=== PATIENT | male | born 1955 | race Two or more races ===

== ENCOUNTER 2024-07-31 23:29 | Inpatient (IN) | payer OTHER, MEDICARE, MEDICAID ==
[~2024-07-31] VITALS: Ht 188 cm; Wt 109.5 kg
--- NOTE | 2024-08-01 00:32 | ED.PDOC ---
SOB-HPI HPI Comments 68 year old male brought in by EMS presents to the ED with a chief complaint of shortness of breath onset 1 day. Per EMS, patient has a PMHx of HTN, COPD, rhabdomyolysis. Patient was experiencing shortness of breath, O2 sat upon EMS arrival was 86% RA, placed 15 NRB O2 sat improved to 96%. Patient was also experiencing cough, hemoptysis. Upon assessment patient was on 3L, O2 sat was 92%. Denies chest pain, headache, dizziness, abdominal pain, nausea, vomiting, diarrhea. No other symptoms or modifying factors present at this time. Chief Complaint: Shortness of Breath Time Seen by MD: 00:25 Reviewed notes: Medications, Allergies Information Source: Patient, Emergency Med Personnel Mode of Arrival: EMS Severity: Moderate Timing: Hours Duration: Since onset Context: At Rest PE Risk Factors: None History of: COPD Prehospital treatment: Breathing Tx, Oxygen Modifying Factors: Nothing Associated Signs and Symptoms: Cough, Hemoptysis Radiation: No Radiation If cough with SOB: Productive, Bloody Past Medical History PAST MEDICAL HISTORY: COPD, HTN Past Medical History (Other): rhabdomyolysis Surgical History: Unknown Family History Family History: Unknown Social History Smoker: Non-Smoker Alcohol: Denies ETOH Use Drugs: Denies Drug Use Lives In: Home Constitutional: denies: chills, diaphoresis, fatigue, fever, malaise, sweats, weakness, others EENTM: denies: blurred vision, double vision, ear bleeding, ear discharge, ear drainage, ear pain, ear ringing, eye pain, eye redness, hearing loss, mouth pain, mouth swelling, nasal discharge, nose bleeding, nose congestion, nose pain, photophobia, tearing, throat pain, throat swelling, voice changes, others Respiratory: reports: cough, hemoptysis, shortness of breath; denies: orthopnea, SOB at rest, SOB with excertion, stridor, wheezing, others Cardiovascular: denies: chest pain, dizzy spells, diaphoresis, Dyspnea on exertion, edema, irregular heart beat, left arm pain, lightheadedness, palpitations, PND, syncope, others Gastrointestinal: denies: abdomen distended, abdominal pain, blood streaked bowels, constipated, diarrhea, dysphagia, difficulty swallowing, hematemesis, melena, nausea, poor appetite, poor fluid intake, rectal bleeding, rectal pain, vomiting, others Genitourinary: denies: burning, dysuria, flank pain, frequency, hematuria, incontinence, penile discharge, penile sore, pain, testicle pain, testicle swelling, urgency, others Neurological: denies: dizziness, fainting, headache, left sided numbness, left sided weakness, numbness, paresthesia, pre-existing deficit, right sided numbness, right sided weakness, seizure, speech problems, tingling, tremors, weakness, others Musculoskeletal: denies: back pain, gout, joint pain, joint swelling, muscle pain, muscle stiffness, neck pain, others Integumetry: denies: bruises, change in color, change in hair/nails, dryness, laceration, lesions, lumps, rash, wounds, others Allergic/Immunocompromised: denies: Difficulty Healing, Frequent Infections, Hives, Itching, others Hematologic/Lymphatic: denies: anemia, blood clots, easy bleeding, easy bruising, swollen glands, others Endocrine: denies: excessive hunger, excessive sweating, excessive thirst, excessive urination, flushing, intolerance to cold, intolerance to heat, unexplained weight gain, unexplained weight loss, others Psychiatric: denies: anxiety, bipolar disorder, depression, hopeless, panic disorder, schizophrenia, sleepless, suicidal, others All Other Systems: Reviewed and Negative Physical Exam General Appearance: Mild Distress HEENT: Other (Pupils and face symmetric. Moist mucous membranes.) Neck: Full Range of Motion, Normal Inspection Respiratory: Accessory Muscle Use, Decreased Breath Sounds, Respiratory Distress, Wheezing Cardiovascular: No Edema, No JVD, Tachycardia Breast Exam: Deferred Gastrointestinal: Non Tender, Soft Genitalia: Deferred Pelvic: Deferred Rectal: Deferred Extremities: Normal inspection, Normal range of motion, Non-tender, No pedal edema Neurologic: Alert (Oriented x2), Normal Affect, Other (Anxious. Moves all extremities. No gross focal deficit.) Cerebellar Function: NOT DONE Reflexes: NOT DONE Skin: Dry, Pallor, Warm Lymphatic: NOT DONE EKG EKG : Comments Sinus tach, rate 135, normal intervals, left axis deviation, possible old anteroseptal infarct, lateral ST depression with other nonspecific T changes. Was a procedure done? Was a procedure done?: No Differential Dx Differential Diagnosis: Asthma, Bronchitis, CHF, COPD, Hyperventilation, Panic Attack, Pneumonia, Pulmonary Embolism, Respiratory Distress, URI X-Ray, Labs, Meds, VS Vital Signs Date Time Temp Pulse Resp B/P (MAP) Pulse Ox O2 Delivery O2 Flow Rate FiO2 08/01/24 02:25 98.9 128 37 112/78 93 3.0 32 98.9 08/01/24 02:20 93 Nasal Cannula* 3 32 08/01/24 02:20 93 Nasal Cannula 3.0 08/01/24 01:00 128 34 112/78 (89) 90 08/01/24 00:37 37 93 Nasal Cannula* 3 32 08/01/24 00:16 98.9 132 43 121/88 (99) 91 98.9 08/01/24 00:00 129 07/31/24 23:56 Nasal Cannula* 3 32 07/31/24 23:37 98.3 138 22 150/88 (108) 96 07/31/24 23:35 135 Lab Test 08/01/24 02:11 08/01/24 01:50 08/01/24 00:44 08/01/24 00:41 Range/Units Troponin I High Sensitivity Pending 15 </=54 ng/L Urine Color Light-yellow Yellow Urine Clarity Turbid H Clear Urine pH 5.5 5.0-9.0 Urine Specific [place] 1.023 1.001-1.035 Urine Protein 1+ H Negative Urine Ketones Trace Negative Urine Blood 3+ H Negative /uL Urine Nitrite Negative Negative Urine Bilirubin Negative Negative Urine Urobilinogen Normal Negative mg/dL Urine Leukocyte Esterase Negative Negative /uL Urine RBC 361 0 - 3 /hpf Urine Microscopic WBC 8 H 0-3 /HPF Urine Squamous Epithelial Cells Few <5 /hpf Urine Bacteria Few H None Seen /hpf Urine Mucus Few None Seen Urine Glucose Normal Normal mg/dL Influenza Type A Antigen Negative Negative Influenza Type B Antigen Negative Negative SARS-CoV-2 Antigen (Rapid) Negative NEGATIVE White Blood Count 15.3 H 4.4-10.8 10^3/uL Red Blood Count 3.83 L 4.5-5.90 10^6/uL Hemoglobin 10.8 L 13.5-17.5 g/dL Hematocrit 32.5 L 41.0-53.0 % Mean Corpuscular Volume 84.8 80.0-100.0 fL Mean Corpuscular Hemoglobin 28.1 28.0-32.0 pg Mean Corpuscular Hemoglobin Concent 33.1 32.0-36.0 g/dL Red Cell Distribution Width 14.9 H 11.8-14.3 % Platelet Count 332 140-450 10^3/uL Mean Platelet Volume 9.1 6.9-10.8 fL Neutrophils (%) (Auto) 86.7 H 37.0-80.0 % Lymphocytes (%) (Auto) 7.3 L 10.0-50.0 % Monocytes (%) (Auto) 4.2 0.0-12.0 % Eosinophils (%) (Auto) 1.4 0.0-7.0 % Basophils (%) (Auto) 0.4 0.0-2.0 % Neutrophils # (Auto) 13.2 H 1.6-8.6 10 ^3/uL Lymphocytes # (Auto) 1.1 0.4-5.4 10 ^3/uL Monocytes # (Auto) 0.6 0-1.3 10 ^3/uL Eosinophils # (Auto) 0.2 0-0.8 10 ^3/uL Basophils # (Auto) 0.1 0-0.2 10 ^3/uL Nucleated Red Blood Cells 0.0 % D-Dimer, Quantitative 0.85 H 0.0-0.49 mg/L FEU Sodium Level 140 136-145 mmol/L Potassium Level 4.3 3.5-5.1 mmol/L Chloride Level 108 H 98-107 mmol/L Carbon Dioxide Level 21 20-31 mmol/L Anion Gap 11 5-15 Blood Urea Nitrogen 39 H 9-23 mg/dL Creatinine 1.00 0.700-1.30 mg/dL Glomerular Filtration Rate Calc 82 >90 mL/min BUN/Creatinine Ratio 39.0 H 10.0-20.0 Serum Glucose 143 H 74-106 mg/dL Lactic Acid Level 2.2 *H 0.4-2.0 mmol/L Calcium Level 9.7 8.7-10.4 mg/dL B-Type Natriuretic Peptide 27.44 0-100 pg/mL Current Medications Medications (Trade) Dose Ordered Sig/Camelia Route Start Time Stop Time Status Last Admin Albuterol (Ventolin Medneb) 5 mg ONCE ONCE NEB 08/01/24 00:30 08/01/24 00:31 DC 08/01/24 00:37 Ipratropium [place] (Atrovent Medneb) 0.5 mg ONCE ONCE NEB 08/01/24 00:30 08/01/24 00:31 DC 08/01/24 00:37 Methylprednisolone Sodium Succinate (Solu Medrol) 125 mg ONCE ONCE IV 08/01/24 00:30 08/01/24 00:31 DC 08/01/24 00:40 Sodium Chloride 1,000 ml @ 1,000 mls/hr Q1H ONCE IV 08/01/24 01:30 08/01/24 02:29 DC 08/01/24 01:31 Piperacillin Sod/ Tazobactam Sod 100 ml @ 100 mls/hr ONCE ONCE IV 08/01/24 01:30 08/01/24 02:29 DC 08/01/24 02:13 ORDERING PHYSICIAN: KAYODE MORENO MD PROCEDURE(s): CXRP - CHEST PORTABLE REASON: sob ORDER NUMBER(s): [id number], ACCESSION NUMBER(s): [id number] CHEST RADIOGRAPH Indication: sob Technique: Single frontal view of the chest was obtained COMPARISON: None FINDINGS: Lines and Tubes: None Lungs: Right middle and lower lobe atelectasis. Pleura: No effusion. No pneumothorax. Cardiomediastinal contours: Mild cardiomegaly Bones: Unremarkable IMPRESSION: Right middle and lower lobe atelectasis. ATED BY: ROBERTO RAZO MD DICTATED DATE/TIME: 08/01/2453 SIGNED BY: ROBERTO RAZO MD SIGNED DATE/TIME: 08/01/2453 CC: X-Ray, Labs, Meds, VS Comment 68-year-old male with a history of hypertension, COPD and rhabdomyolysis brought in by EMS from [facility] nursing facility for evaluation of shortness a breath and hemoptysis Vitals remarkable for oxygen saturation of 86% on room air , 91% on 3 L nasal cannula Exam remarkable for wheezes, rhonchi, diminished breath sounds and respiratory distress Rhythm strip independently interpreted by me: Sinus tach, rate 135, no ectopy. Chest x-ray IMPRESSION: Right middle and lower lobe atelectasis. CBC remarkable for WBC 15.3, hemoglobin 10.8, hematocrit 32.5, metabolic panel remarkable for BUN 39, lactate 2.2, D-dimer 0.85, BNP and troponin negative, influenza and COVID negative Patient treated with the following in the ED: Albuterol 5 mg/Atrovent 0.5 mg nebulized, Solu-Medrol 125 mg IV, Zosyn 4.5 g IV, vancomycin 1 g IV, 3 L 0.9 normal saline IV bolus On re-evaluation, patient is saturating 93% on 3 L nasal cannula and is not in respiratory distress. Other vitals are stable with the exception of a heart rate of 120 Plan is to admit the patient for respiratory support and IV antibiotics Time of 1ST Reevaluation: 00:55 Reevaluation 1ST: Unchanged Patient Education/Counseling: Diagnosis, Treatment, Prognosis Family Education/Counseling: No Family Present Additional Information The following tests were ordered, and results were reviewed by me: EKG, TROP - x3, CBC, BNP, XY CHEST, UA, BMP, LA W/REFLEX, BLOOD CULTURE, RAPID INFLUENZA A&B, COVID, Additional Information was gathered from interviewing the following independent historians:EMS I reviewed and agreed with the following test results read by other providers: XY CHEST I discussed treatment and results with medical personnel and: patient Sepsis Sepsis Reasesment Focused Exam Sepsis focused exam: focus exam completed (129 good capillary refill. Appears comfortable.), time: (129) Departure 1 Departure Time of Disposition: 01:33 Impression: Primary Impression: COPD exacerbation Additional Impressions: Respiratory failure Qualified Codes: J96.21 - Acute and chronic respiratory failure with hypoxia Hemoptysis Sepsis Qualified Codes: A41.9 - Sepsis, unspecified organism Disposition: ADMITTED INPATIENT Admit to: Tele Condition: Guarded Critical Care Note Critical Care Time?: Yes (35 min-critical care time only) Critical care comment: Critical care time including multiple bedside re-evaluations, review of lab and imaging studies, and discussion of the case with the admitting provider. Patient is high risk for respiratory and/or hemodynamic decompensation. Stability Stability form required: No Heart Score Heart Score: Heart Score Response (Comments) Value History N/A 0 EKG N/A 0 Age N/A 0 Risk Factors N/A 0 Troponin N/A 0 Total 0 I personally scribed for KAYODE MORENO MD ([email or web address]) on 08/01/24 at 00:32. Electronically submitted by Janeth Alcantara ([email or web address]). I personally scribed for KAYODE MORENO MD ([facility]) on 08/01/24 at 00:33. Electronically submitted by Janeth Alcantara ([email or web address]). I personally scribed for KAYODE MORENO MD ([facility] on 08/01/24 at 00:58. Electronically submitted by Janeth Alcantara ([email or web address]). KAYODE MORENO MD Aug 01, 2024 00:32
[2024-08-01] MEDS: ALBUTEROL SULF 2.5 MG/0.5ML(0.5%) NEB SOLN NEB ONE (00:37)
[2024-08-01] MEDS: IPRATROPIUM BROM 0.5 MG/2.5ML INH SOL NEB ONE (00:37)
[2024-08-01] MEDS: methylPREDNISolone SOD SUCC 125 MG/2 ML VL IV ONE (00:40)
[2024-08-01 00:56] LABS: Basophils # (auto) 0.1 10 ^3/uL (0-0.2); Basophils % (auto) 0.4 % (0.0-2.0); Eosinophils # (auto) 0.2 10 ^3/uL (0-0.8); Eosinophils % (auto) 1.4 % (0.0-7.0); Hematocrit 32.5 % (41.0-53.0); Hemoglobin 10.8 g/dL (13.5-17.5); Lymphocytes # (auto) 1.1 10 ^3/uL (0.4-5.4); Lymphocytes % (auto) 7.3 % (10.0-50.0); Mean Corpuscular Hemoglobin 28.1 pg (28.0-32.0); Mean Corpuscular Hgb Conc. 33.1 g/dL (32.0-36.0); Mean Corpuscular Volume 84.8 fL (80.0-100.0); Monocytes # (auto) 0.6 10 ^3/uL (0-1.3); Monocytes % (auto) 4.2 % (0.0-12.0); Neutrophils # (auto) 13.2 10 ^3/uL (1.6-8.6); Neutrophils % (auto) 86.7 % (37.0-80.0); Platelet Count (auto) 332 10^3/uL (140-450); Red Blood Cells 3.83 10^6/uL (4.5-5.90); Red Cell Distribution Width 14.9 % (11.8-14.3); White Blood Cell 15.3 10^3/uL (4.4-10.8)
--- NOTE | 2024-08-01 00:56 | DVH ---
CHEST RADIOGRAPH Indication: sob Technique: Single frontal view of the chest was obtained COMPARISON: None FINDINGS: Lines and Tubes: None Lungs: Right middle and lower lobe atelectasis. Pleura: No effusion. No pneumothorax. Cardiomediastinal contours: Mild cardiomegaly Bones: Unremarkable IMPRESSION: Right middle and lower lobe atelectasis.
[2024-08-01 01:06] LABS: Potassium 4.3 mmol/L (3.5-5.1); Sodium 140 mmol/L (136-145)
[2024-08-01 01:07] LABS: Anion Gap 11 (5-15); Carbon Dioxide 21 mmol/L (20-31)
[2024-08-01 01:08] LABS: Calcium 9.7 mg/dL (8.7-10.4)
[2024-08-01 01:15] LABS: Blood Urea Nitrogen 39 mg/dL (9-23); Chloride 108 mmol/L (98-107); Glucose 143 mg/dL (74-106)
[2024-08-01 01:18] LABS: Lactic Acid w/Reflex 2.2 mmol/L (0.4-2.0)
[2024-08-01 01:26] LABS: COVID19 ANTIGEN SOFIA FIA NEGATIVE (NEGATIVE); Rapid Influenza A Negative (Negative); Rapid Influenza B Negative (Negative)
[2024-08-01] MEDS ORDERED: VANCOMYCIN 1GM/250ML KIT 250 ML IV ONE (01:30)
[2024-08-01] MEDS: SODIUM CHLORIDE 0.9% 1,000 ML IV ONE (01:31)
[2024-08-01] MEDS ORDERED: MORPHINE SULFATE INJ 2 MG/ml SYRG IV PRN (01:45)
[2024-08-01] MEDS ORDERED: ACETAMINOPHEN 325 MG TAB PO PRN (01:45)
[2024-08-01] MEDS ORDERED: NITROGLYCERIN 0.4 MG SL TAB SL PRN (01:45)
[2024-08-01] MEDS: PIPERACILLIN-TAZO 4.5GM 100 ML IV ONE (02:13)
[2024-08-01 02:20] VITALS: O2SAT 93
[2024-08-01 02:25] VITALS: BP 112/78; PULSE 128; RESP 37; TEMP 98.9; O2SAT 93
[2024-08-01 02:36] LABS: Urine Bacteria FEW /hpf (None Seen); Urine Blood 3+ /uL (Negative); Urine Clarity Turbid (Clear); Urine Color Light-Yellow (Yellow); Urine Mucus FEW (None Seen); Urine Protein, UAD 1+ (Negative); Urine Specific Gravity 1.023 (1.001-1.035); Urine Squamous Epithelial Cell FEW /hpf (<5); Urine Urobilinogen Normal (Negative); Urine WBC 8 /HPF (0-3); Urine pH 5.5 (5.0-9.0)
[2024-08-01] MEDS: SODIUM CHLORIDE 0.9% 2,000 ML IV ONE (02:51)
[2024-08-01] MEDS: VANCOMYCIN 1GM/250ML KIT 250 ML IV SCH (04:23)
[2024-08-01] MEDS ORDERED: guaiFENesin-DM 100/10mg/5ml SYR PO PRN (05:00)
--- NOTE | 2024-08-01 05:03 | DVHHP2 ---
History of Present Illness Reason for Visit: Shortness for breath History of Present Illness 68-year-old male presents for evaluation of shortness for breath. Patient is a poor historian. Per ED records and personnel patient presents with shortness for breath has been ongoing for the past two days. He has also been having a productive cough with mild blood-tinged. Denies chest pain or palpitations. No other acute complaints reported. Past Medical History Hypertension, COPD, seizures, questionable dementia Past Surgical History None Family History Noncontributory Smoke: No ALCOHOL: none Drugs: None Lives: with Family Review of Systems Review of Systems Review of systems are currently negative otherwise addressed in HPI. Allergies: Coded Allergies: NO KNOWN ALLERGIES (Unverified , 07/31/24) Medications Current Medications Medications Dose Ordered Sig/Camelia Route Start Time Stop Time Status Last Admin Dose Admin Albuterol 2.5 mg Q6HPRN PRN NEB 08/01/24 01:45 Ipratropium [place] 0.5 mg Q6HPRN PRN NEB 08/01/24 01:45 Ceftriaxone Sodium 50 ml @ 100 mls/hr DAILY@09 IV 08/01/24 09:00 Azithromycin 250 ml @ 125 mls/hr DAILY IV 08/01/24 10:00 Levetiracetam 750 mg BID PO 08/01/24 10:00 Memantine 5 mg Q12HR PO 08/01/24 10:00 Clopidogrel Bisulfate 75 mg DAILY PO 08/01/24 10:00 Nifedipine 60 mg DAILY PO 08/01/24 10:00 Apixaban 2.5 mg BID PO 08/01/24 10:00 Ondansetron HCl 4 mg Q4HP PRN IV 08/01/24 01:45 Acetaminophen 650 mg Q6HP PRN PO 08/01/24 01:45 Nitroglycerin 0.4 mg Q5MINP PRN SL 08/01/24 01:45 Morphine Sulfate 2 mg Q30M PRN IV 08/01/24 01:45 Methylprednisolone Sodium Succinate 40 mg BID IV 08/02/24 10:00 Vancomycin HCl 250 ml @ 250 mls/hr Q2H IV 08/01/24 02:00 08/01/24 04:59 08/01/24 04:23 250 MLS/HR Exam Vital Signs Vital Signs Date Time Temp Pulse Resp B/P (MAP) Pulse Ox O2 Delivery O2 Flow Rate FiO2 08/01/24 04:00 104 08/01/24 04:00 29 113/83 (93) 97 08/01/24 02:25 98.9 3.0 32 98.9 08/01/24 02:20 Nasal Cannula* Exam Gen: 68-year-old male in mild distress Skin: Warm, dry, normal color and texture, no rash. HEENT: Normocephalic atraumatic, mucous membranes moist and pink. Neck: Cervical and supraclavicular nodes normal without enlargement, trachea is midline, thyroid gland is normal without masses. Pulmonary: Bilateral rhonchi y. Cardiac: Sinus tachycardia Abdomen: Soft, nontender, nondistended, bowel sounds present all 4 quadrants, no guarding, no rigidity, no organomegaly. Extremities: No cyanosis, clubbing, no edema Neuro: Cranial nerves II through XII grossly intact, normal affect and speech, no focal motor deficits. Labs/Xrays ORDERING PHYSICIAN: KAYODE MORENO MD PROCEDURE(s): CXRP - CHEST PORTABLE REASON: sob ORDER NUMBER(s): [id number], ACCESSION NUMBER(s): [id number] CHEST RADIOGRAPH Indication: sob Technique: Single frontal view of the chest was obtained COMPARISON: None FINDINGS: Lines and Tubes: None Lungs: Right middle and lower lobe atelectasis. Pleura: No effusion. No pneumothorax. Cardiomediastinal contours: Mild cardiomegaly Bones: Unremarkable IMPRESSION: Right middle and lower lobe atelectasis. Labs Test 08/01/24 02:50 08/01/24 02:11 08/01/24 01:50 08/01/24 00:44 Range/Units Lactic Acid Level 1.9 0.4-2.0 mmol/L Troponin I High Sensitivity 24 </=54 ng/L Urine Color Light-yellow Yellow Urine Clarity Turbid H Clear Urine pH 5.5 5.0-9.0 Urine Specific [place] 1.023 1.001-1.035 Urine Protein 1+ H Negative Urine Ketones Trace Negative Urine Blood 3+ H Negative /uL Urine Nitrite Negative Negative Urine Bilirubin Negative Negative Urine Urobilinogen Normal Negative mg/dL Urine Leukocyte Esterase Negative Negative /uL Urine RBC 361 0 - 3 /hpf Urine Microscopic WBC 8 H 0-3 /HPF Urine Squamous Epithelial Cells Few <5 /hpf Urine Bacteria Few H None Seen /hpf Urine Mucus Few None Seen Urine Glucose Normal Normal mg/dL Influenza Type A Antigen Negative Negative Influenza Type B Antigen Negative Negative SARS-CoV-2 Antigen (Rapid) Negative NEGATIVE Test 08/01/24 00:41 Range/Units White Blood Count 15.3 H 4.4-10.8 10^3/uL Red Blood Count 3.83 L 4.5-5.90 10^6/uL Hemoglobin 10.8 L 13.5-17.5 g/dL Hematocrit 32.5 L 41.0-53.0 % Mean Corpuscular Volume 84.8 80.0-100.0 fL Mean Corpuscular Hemoglobin 28.1 28.0-32.0 pg Mean Corpuscular Hemoglobin Concent 33.1 32.0-36.0 g/dL Red Cell Distribution Width 14.9 H 11.8-14.3 % Platelet Count 332 140-450 10^3/uL Mean Platelet Volume 9.1 6.9-10.8 fL Neutrophils (%) (Auto) 86.7 H 37.0-80.0 % Lymphocytes (%) (Auto) 7.3 L 10.0-50.0 % Monocytes (%) (Auto) 4.2 0.0-12.0 % Eosinophils (%) (Auto) 1.4 0.0-7.0 % Basophils (%) (Auto) 0.4 0.0-2.0 % Neutrophils # (Auto) 13.2 H 1.6-8.6 10 ^3/uL Lymphocytes # (Auto) 1.1 0.4-5.4 10 ^3/uL Monocytes # (Auto) 0.6 0-1.3 10 ^3/uL Eosinophils # (Auto) 0.2 0-0.8 10 ^3/uL Basophils # (Auto) 0.1 0-0.2 10 ^3/uL Nucleated Red Blood Cells 0.0 % D-Dimer, Quantitative 0.85 H 0.0-0.49 mg/L FEU Sodium Level 140 136-145 mmol/L Potassium Level 4.3 3.5-5.1 mmol/L Chloride Level 108 H 98-107 mmol/L Carbon Dioxide Level 21 20-31 mmol/L Anion Gap 11 5-15 Blood Urea Nitrogen 39 H 9-23 mg/dL Creatinine 1.00 0.700-1.30 mg/dL Glomerular Filtration Rate Calc 82 >90 mL/min BUN/Creatinine Ratio 39.0 H 10.0-20.0 Serum Glucose 143 H 74-106 mg/dL Calcium Level 9.7 8.7-10.4 mg/dL B-Type Natriuretic Peptide 27.44 0-100 pg/mL Assessment/Plan Assessment/Plan Assessment Community-acquired pneumonia Acute hypoxic respiratory failure COPD exacerbation Plan Admit the patient to telemetry to the hospitalist CT angiogram pending Resume home medications Hold Eliquis due to hemoptysis Continue treatment per orders. Plan discussed with: Patient My Orders Orders - MADELEINE COBB Procedure Category Date Status Time Albuterol Medneb PHA 08/01/24 In Process (Ventolin Medneb) 01:45 Ipratropium Medneb PHA 08/01/24 In Process (Atrovent Medneb) 01:45 Ceftriaxone 1gm/50ml PHA 08/01/24 In Process D5w (Rocephin) 09:00 Azithromycin 500mg/ PHA 08/01/24 In Process 250ml (Zithromax 50 10:00 Levetiracetam Tablet PHA 08/01/24 In Process (Keppra Tablet) 10:00 Memantine Tablet PHA 08/01/24 In Process (Namenda Tablet) 10:00 Clopidogrel Bisulfate PHA 08/01/24 In Process (Plavix) 10:00 Nifedipine Er PHA 08/01/24 In Process (Procardia Xl 10:00 Apixaban (Eliquis) PHA 08/01/24 In Process 10:00 Basic Metabolic Panel LAB 08/02/24 Verified 04:00 Admit ADMIT 08/01/24 Transmitted 01:37 Ondansetron Hcl PHA 08/01/24 In Process (Zofran) 01:45 Complete Blood Count LAB 08/02/24 Verified 04:00 Cardiac DIET 08/01/24 Transmitted Diet-2gna,Lofat,Lochol Breakfast Condition: Fair LEANA 08/01/24 In Process 01:37 Acetaminophen Tablet PHA 08/01/24 In Process (Tylenol Tablet) 01:45 Bedrest With Bathroom LEANA 08/01/24 In Process Privileg 01:37 Nitroglycerin PHA 08/01/24 In Process Sublingual (Ntrostat 01:45 Morphine Sulfate PHA 08/01/24 In Process Injection 01:45 Stat Ekg For Chest [place]ANA 08/01/24 In Process Pain 01:37 Notify Md Of Changes [facility] 08/01/24 In Process From Base 01:37 Furnace Builder For [facility] 08/01/24 In Process 24 Hours 01:37 Emergency Dysrhythmia [facility] 08/01/24 In Process Protocol 01:37 Rhythm Strips Once [facility] 08/01/24 In Process Every Shift 01:37 Oxygen By Nasal RT 08/01/24 Transmitted Cannula 01:37 Methylprednisolone PHA 08/02/24 In Process Sod Succ (Solu Medrol 10:00 Guaifenesin-Dextromet PHA 08/01/24 Verified Liquid (Robitussin 05:00 Date of Service: Aug 01, 2024 Billing Provider: MADELEINE COBB Common Visit Codes: [id number] INP/OBS CARE (HIGH) MADELEINE COBB Aug 01, 2024 05:03
[2024-08-01] MEDS: IOHEXOL 350 MG/ML 100ML IJ ONE ×2 (05:42→06:33)
--- NOTE | 2024-08-01 07:01 | DVH ---
EXAM: CT Angiography Chest With Intravenous Contrast CLINICAL INDICATION: r/o pe TECHNIQUE: Axial computed tomographic angiography images of the chest with intravenous contrast. Th is CT exam was performed using one or more of the following dose reduction techniques: automated exp osure control, adjustment of the mA and/or kV according to patient size, and/or use of iterative peter nstruction technique. MIP reconstructed images were created and reviewed. CONTRAST: COMPARISON: Comparison FINDINGS: ARTIFACTS: Beam hardening artifacts. LIMITATIONS: Suboptimal opacification of the pulmonary arteries. PULMONARY ARTERIES: No pulmonary embolism is identified. Some of the distal pulmonary arteries can not be evaluated due to suboptimal opacification. AORTA: No acute findings. No thoracic aortic aneurysm. LUNGS AND PLEURAL SPACES: Right lower lobe partial consolidation, likely atelectasis or pneumonia. No significant effusion. HEART: Unremarkable. No cardiomegaly. No significant pericardial effusion. No evidence of RV dys function. BONES/JOINTS: No acute fracture. No dislocation. SOFT TISSUES: Unremarkable. LYMPH NODES: Unremarkable. No enlarged lymph nodes. OTHER FINDINGS: . None. . .. IMPRESSION: 1. No pulmonary embolism is identified. Some of the distal pulmonary arteries cannot be evaluated d ue to suboptimal opacification. 2. Right lower lobe partial consolidation, likely atelectasis or pneumonia.
[2024-08-01 07:08] VITALS: PULSE 105; RESP 25; O2SAT 95
[2024-08-01] MEDS: ALBUTEROL SULF 2.5 MG/0.5ML(0.5%) NEB SOLN NEB PRN (07:08)
[2024-08-01] MEDS: IPRATROPIUM BROM 0.5 MG/2.5ML INH SOL NEB PRN (07:08)
[2024-08-01 07:14] VITALS: PULSE 103; RESP 24; O2SAT 98
[2024-08-01 08:00] VITALS: PULSE 103; RESP 25; O2SAT 96
[2024-08-01] MEDS: CLOPIDOGREL BISULFATE 75 MG TAB PO SCH (09:21)
[2024-08-01] MEDS: MEMANTINE HCL 5 MG TAB PO SCH (09:21)
[2024-08-01] MEDS: levETIRAcetam 500 MG TAB PO SCH (09:22)
[2024-08-01] MEDS: NIFEdipine ER 30 MG TAB PO SCH (09:24)
[2024-08-01] MEDS: cefTRIAXone 1GM/50ML D5W 50 ML IV SCH (09:38)
--- NOTE | 2024-08-01 09:49 | ECG ---
[facility] Test Date: 2024-07-31 Test Time: 23:35:50 Pat Name: BRODY CHOWDHURY Department: ER Room: 0245T Gender: M Engineering Inspector: : 1955 Requested By: EMERGENCY EMERGENCY Order Number: [id number] Reading MD: Balta Barry Measurements Intervals [place] Rate: 135 P: 48 OR: 168 QRS: -38 QRSD: 96 T: 152 QT: 277 QTc: 416 Interpretive Statements Sinus tachycardia Left axis deviation Abnormal T, consider ischemia, lateral leads Baseline wander in lead(s) III Electronically Signed On 08-02-2024 11:59:36 PST by Balta Barry Please click the below link to view image of tracing.
[2024-08-01] MEDS ORDERED: APIXABAN 2.5 MG TAB PO SCH (10:00)
[2024-08-01] MEDS ORDERED: methylPREDNISolone SOD SUCC 40 MG/ML VL IV SCH (10:00)
[2024-08-01] MEDS: AZITHROMYCIN 500MG/ 250ML 250 ML IV SCH (10:56)
[2024-08-01] MEDS: ONDANSETRON HCL 4 MG/2 ML VIAL IV PRN (11:32)
[2024-08-01 19:32] VITALS: O2SAT 97
--- NOTE | 2024-08-01 21:09 | DVHINCON2 ---
Date of service: Aug 01, 2024 Referring Physician Kenny Munoz DO Reason for Consultation Acute hypoxic respiratory failure, community-acquired pneumonia, COPD exacerbation History of Present Illness A 68-year-old man with past medical history of COPD, hypertension, seizures, and questionable dementia who presents to ED today for evaluation of shortness of breath. Patient is a poor historian. Per ED records and personnel, patient presents with shortness of breath that has been ongoing for the past 2 days. He has also been having a productive cough with mild blood-tinged phlegm.. Denies chest pain or palpitations. No other acute complaints reported. Patient was admitted for further care, and pulmonary consultation is requested for evaluation and management of acute hypoxic respiratory failure, pneumonia and COPD exacerbation. Review of Systems: 14-point review of systems negative unless otherwise noted above. Past Medical History: Hypertension, COPD, seizures, and questionable dementia Past Surgical History: None Medications: Reviewed. Allergies: No known drug allergies. Family History: No family history of premature CAD. No family history of lung disorders. Social History: Nonsmoker. No alcohol or illicit drug use. Allergies: Coded Allergies: NO KNOWN ALLERGIES (Unverified , 07/31/24) Current Medications Current Medications Medications (Trade) Dose Ordered Sig/Camelia Route PRN Reason Start Time Stop Time Status Last Admin Albuterol (Ventolin Medneb) 2.5 mg Q6HPRN PRN NEB SHORTNESS OF BREATH 08/01/24 01:45 08/01/24 07:08 Ipratropium [place] (Atrovent Medneb) 0.5 mg Q6HPRN PRN NEB SHORTNESS OF BREATH 08/01/24 01:45 08/01/24 07:08 Ceftriaxone Sodium 50 ml @ 100 mls/hr DAILY@09 IV 08/01/24 09:00 08/01/24 09:38 Azithromycin 250 ml @ 125 mls/hr DAILY IV 08/01/24 10:00 08/01/24 10:56 Methylprednisolone Sodium Succinate (Solu Medrol) 40 mg BID IV 08/01/24 10:00 08/01/24 01:50 DC Levetiracetam (Keppra Tablet) 750 mg BID PO 08/01/24 10:00 08/01/24 09:22 Memantine (Namenda Tablet) 5 mg Q12HR PO 08/01/24 10:00 08/01/24 09:21 Clopidogrel Bisulfate (Plavix) 75 mg DAILY PO 08/01/24 10:00 08/01/24 09:21 Nifedipine (Procardia Xl (Time-Release)) 60 mg DAILY PO 08/01/24 10:00 08/01/24 09:24 Apixaban (Eliquis) 2.5 mg BID PO 08/01/24 10:00 08/01/24 05:04 DC Ondansetron HCl (Zofran) 4 mg Q4HP PRN IV NAUSEA / VOMITING 08/01/24 01:45 08/01/24 11:32 Acetaminophen (Tylenol Tablet) 650 mg Q6HP PRN PO PAIN SCALE 1-3 OR TEMP>100.4 08/01/24 01:45 Nitroglycerin (Ntrostat Sublingual) 0.4 mg Q5MINP PRN SL FOR CHEST PAIN 08/01/24 01:45 Morphine Sulfate 2 mg Q30M PRN IV FOR CHEST PAIN 08/01/24 01:45 Methylprednisolone Sodium Succinate (Solu Medrol) 40 mg BID IV 08/02/24 10:00 Vancomycin HCl 250 ml @ 250 mls/hr Q2H IV 08/01/24 02:00 08/01/24 04:59 DC 08/01/24 05:30 Guaifenesin/ Dextromethorphan (Robitussin-Dm Liquid) 10 ml Q4HP PRN PO FOR COUGH 08/01/24 05:00 Vital Signs Vital Signs Date Time Temp Pulse Resp B/P (MAP) Pulse Ox O2 Delivery O2 Flow Rate FiO2 08/01/24 19:32 97 Nasal Cannula 2.0 08/01/24 19:32 28 08/01/24 18:00 103 20 117/93 (101) 08/01/24 08:00 98.4 98.4 Physical Exam Gen.: Patient lying in bed in no apparent distress. On supplemental oxygen. Head: Normocephalic, atraumatic. Eyes: EOMI/PERRLA. Ears: Normal hearing. Normal anatomy. Neck/trachea: Trachea midline, supple. Nose: Normal external anatomy. Mouth: Moist mucous membranes. Chest: Decreased air entry bilaterally. No wheezing or rhonchi. Cardiovascular: Positive S1, positive S2. Regular rate and rhythm. Abdomen: Positive bowel sounds in all 4 quadrants. Soft, non-tender, non- distended. : Deferred. Rectal: Deferred. Skin: Warm, dry. Intact. Extremities: 2+ radial pulses bilaterally. No lower extremity edema. Neuro: Awake, alert, oriented x3. No gross motor or sensory deficits. Cranial nerves II through XII intact. Gait not assessed. Labs/Diagnostic Data Labs Test 08/01/24 02:50 08/01/24 02:11 08/01/24 01:50 08/01/24 00:44 Range/Units Lactic Acid Level 1.9 0.4-2.0 mmol/L Troponin I High Sensitivity 24 </=54 ng/L Urine Color Light-yellow Yellow Urine Clarity Turbid H Clear Urine pH 5.5 5.0-9.0 Urine Specific [place] 1.023 1.001-1.035 Urine Protein 1+ H Negative Urine Ketones Trace Negative Urine Blood 3+ H Negative /uL Urine Nitrite Negative Negative Urine Bilirubin Negative Negative Urine Urobilinogen Normal Negative mg/dL Urine Leukocyte Esterase Negative Negative /uL Urine RBC 361 0 - 3 /hpf Urine Microscopic WBC 8 H 0-3 /HPF Urine Squamous Epithelial Cells Few <5 /hpf Urine Bacteria Few H None Seen /hpf Urine Mucus Few None Seen Urine Glucose Normal Normal mg/dL Influenza Type A Antigen Negative Negative Influenza Type B Antigen Negative Negative SARS-CoV-2 Antigen (Rapid) Negative NEGATIVE Test 08/01/24 00:41 Range/Units White Blood Count 15.3 H 4.4-10.8 10^3/uL Red Blood Count 3.83 L 4.5-5.90 10^6/uL Hemoglobin 10.8 L 13.5-17.5 g/dL Hematocrit 32.5 L 41.0-53.0 % Mean Corpuscular Volume 84.8 80.0-100.0 fL Mean Corpuscular Hemoglobin 28.1 28.0-32.0 pg Mean Corpuscular Hemoglobin Concent 33.1 32.0-36.0 g/dL Red Cell Distribution Width 14.9 H 11.8-14.3 % Platelet Count 332 140-450 10^3/uL Mean Platelet Volume 9.1 6.9-10.8 fL Neutrophils (%) (Auto) 86.7 H 37.0-80.0 % Lymphocytes (%) (Auto) 7.3 L 10.0-50.0 % Monocytes (%) (Auto) 4.2 0.0-12.0 % Eosinophils (%) (Auto) 1.4 0.0-7.0 % Basophils (%) (Auto) 0.4 0.0-2.0 % Neutrophils # (Auto) 13.2 H 1.6-8.6 10 ^3/uL Lymphocytes # (Auto) 1.1 0.4-5.4 10 ^3/uL Monocytes # (Auto) 0.6 0-1.3 10 ^3/uL Eosinophils # (Auto) 0.2 0-0.8 10 ^3/uL Basophils # (Auto) 0.1 0-0.2 10 ^3/uL Nucleated Red Blood Cells 0.0 % D-Dimer, Quantitative 0.85 H 0.0-0.49 mg/L FEU Sodium Level 140 136-145 mmol/L Potassium Level 4.3 3.5-5.1 mmol/L Chloride Level 108 H 98-107 mmol/L Carbon Dioxide Level 21 20-31 mmol/L Anion Gap 11 5-15 Blood Urea Nitrogen 39 H 9-23 mg/dL Creatinine 1.00 0.700-1.30 mg/dL Glomerular Filtration Rate Calc 82 >90 mL/min BUN/Creatinine Ratio 39.0 H 10.0-20.0 Serum Glucose 143 H 74-106 mg/dL Calcium Level 9.7 8.7-10.4 mg/dL B-Type Natriuretic Peptide 27.44 0-100 pg/mL Assessment Impression: Acute hypoxic respiratory failure Dependence on supplemental oxygen Community-acquired pneumonia Pneumonia likely gram negative Acute COPD exacerbation Obesity BMI 30.7 Atelectasis Plan: Supplemental oxygen 2 LPM via NC Titrate to keep O2 sats above 92%. CXR reviewed, demonstrates right middle and lower lobe atelectasis. CTA reveals no pulmonary embolism. Right lower lobe partial consolidation, likely atelectasis or pneumonia. Continue bronchodilators. Continue antibiotics Incentive spirometry Antiepileptic medication - Keppra On Plavix Monitor renal function. Monitor electrolytes. Supplement as necessary. Monitor ins and outs. Diet and lifestyle modifications for weight reduction Obesity - complicates all care DVT prophylaxis. Prognosis: Poor given patient's multiple co-morbidities. Rest of plan per hospitalist and other consultants. Thank you Dr. Munoz, for allowing me to participate in this patient's care. Further recommendations will depend on the patient's clinical course. Please do not hesitate to contact me if you have any questions or concerns. This medical document was created using an electronic medical record system with [employer] computerized dictation system. Although these documentations are being carefully reviewed, there may still be some phonetic and typographical changes. The errors are purely typographical, due to imperfection on the software program, and do not reflect any compromise in the patient's medical care. Plan discussed with: Patient, Other (RN/Dr. Munoz) JOVANA FOREMAN MD Aug 01, 2024 21:09
[2024-08-02] VITALS (13 sets, daily range): BP systolic 108–132; BP diastolic 66–86; PULSE 52–100; RESP 17–20; TEMP 97.8–98.8; O2SAT 94–100
[2024-08-02 07:09] LABS: Basophils # (auto) 0.1 10 ^3/uL (0-0.2); Basophils % (auto) 0.6 % (0.0-2.0); Eosinophils # (auto) 0 10 ^3/uL (0-0.8); Eosinophils % (auto) 0.1 % (0.0-7.0); Hematocrit 25.8 % (41.0-53.0); Hemoglobin 8.4 g/dL (13.5-17.5); Lymphocytes # (auto) 1.1 10 ^3/uL (0.4-5.4); Lymphocytes % (auto) 9.2 % (10.0-50.0); Mean Corpuscular Hemoglobin 27.6 pg (28.0-32.0); Mean Corpuscular Hgb Conc. 32.5 g/dL (32.0-36.0); Monocytes % (auto) 8.4 % (0.0-12.0); Neutrophils # (auto) 9.8 10 ^3/uL (1.6-8.6); Neutrophils % (auto) 81.7 % (37.0-80.0); Nucleated Red Blood Cells % 0.1 %; Platelet Count (auto) 337 10^3/uL (140-450); Red Blood Cells 3.03 10^6/uL (4.5-5.90); White Blood Cell 12.1 10^3/uL (4.4-10.8)
[2024-08-02 07:16] LABS: INR 1.09 (0.9-1.15); Prothrombin Time 11.5 sec (9.3-11.8)
[2024-08-02 07:17] LABS: Alanine Aminotransferase 18 U/L (7-40); Anion Gap 9 (5-15); Bilirubin, Total 0.4 mg/dL (0.2-1.0); Calcium 9.8 mg/dL (8.7-10.4); Carbon Dioxide 24 mmol/L (20-31); Potassium 4.4 mmol/L (3.5-5.1); Sodium 144 mmol/L (136-145); Total Protein 6.2 g/dL (5.7-8.2)
[2024-08-02 07:19] LABS: Alkaline Phosphatase 37 U/L (46-116); Aspartate Aminotransferase 8 U/L (13-40); Blood Urea Nitrogen 55 mg/dL (9-23); Chloride 111 mmol/L (98-107); Glucose 119 mg/dL (74-106)
[2024-08-02] MEDS: methylPREDNISolone SOD SUCC 40 MG/ML VL IV SCH (09:21)
[2024-08-02] MEDS: PANTOPRAZOLE 40 MG/10 ML VIAL INJ IV SCH (09:21)
[2024-08-02] MEDS: SODIUM CHLORIDE 0.9% 1,000 ML IV SCH (09:55)
--- NOTE | 2024-08-02 13:52 | DVHPN2 ---
Reviewed: Care Plan, H&P, Labs, Medications, Previous Orders, Radiology Changes from previous H/P or p: No Changes General: Per HPI Objective Vitals Vital Signs Date Time Temp Pulse Resp B/P (MAP) Pulse Ox O2 Delivery O2 Flow Rate FiO2 08/02/24 10:00 98 Nasal Cannula 2.0 08/02/24 10:00 28 08/02/24 09:20 118/70 08/02/24 09:00 98.2 95 20 98.2 Intake/Output Intake and Output 08/02/24 07:00 Intake Total 550 ml Output Total 200 ml Balance 350 ml Intake IV Total 550 ml Output Urine Total 200 ml # Bowel Movements 2 General Appearance: Alert, Cooperative Cardiovascular: Normal S1, Normal S2 Abdomen: Normal bowel sounds, Soft Neuro: Other (garble speech) Psych/Mental Status: Mental status NL Medications Current Medications Medications Dose Ordered Sig/Camelia Route Start Time Stop Time Status Last Admin Dose Admin Albuterol 2.5 mg Q6HPRN PRN NEB 08/01/24 01:45 08/02/24 06:54 2.5 MG Ipratropium [place] 0.5 mg Q6HPRN PRN NEB 08/01/24 01:45 08/02/24 06:54 0.5 MG Ceftriaxone Sodium 50 ml @ 100 mls/hr DAILY@09 IV 08/01/24 09:00 08/02/24 09:17 100 MLS/HR Azithromycin 250 ml @ 125 mls/hr DAILY IV 08/01/24 10:00 08/02/24 09:55 125 MLS/HR Levetiracetam 750 mg BID PO 08/01/24 10:00 08/02/24 09:18 750 MG Memantine 5 mg Q12HR PO 08/01/24 10:00 08/02/24 09:18 5 MG Clopidogrel Bisulfate 75 mg DAILY PO 08/01/24 10:00 08/02/24 09:20 75 MG Nifedipine 60 mg DAILY PO 08/01/24 10:00 08/02/24 09:20 60 MG Ondansetron HCl 4 mg Q4HP PRN IV 08/01/24 01:45 08/01/24 11:32 4 MG Acetaminophen 650 mg Q6HP PRN PO 08/01/24 01:45 Nitroglycerin 0.4 mg Q5MINP PRN SL 08/01/24 01:45 Morphine Sulfate 2 mg Q30M PRN IV 08/01/24 01:45 Methylprednisolone Sodium Succinate 40 mg BID IV 08/02/24 10:00 08/02/24 09:21 40 MG Guaifenesin/ Dextromethorphan 10 ml Q4HP PRN PO 08/01/24 05:00 Pantoprazole Sodium 40 mg DAILY IV 08/02/24 10:00 08/02/24 09:21 40 MG Sodium Chloride 1,000 ml @ 75 mls/hr [id number] IV 08/02/24 06:00 Laboratory Results Laboratory Tests 08/02/24 06:02 Chemistry Test 08/02/24 06:02 Albumin 4.0 g/dL (3.2-4.8) Calcium Level 9.8 mg/dL (8.7-10.4) Total Protein 6.2 g/dL (5.7-8.2) Coagulation Test 08/02/24 06:02 Prothrombin Time 11.5 sec (9.3-11.8) Prothrombin Time INR 1.09 (0.9-1.15) LFT Test 08/02/24 06:02 Alanine Aminotransferase (ALT) 18 U/L (7-40) Alkaline Phosphatase 37 U/L (46-116) L Aspartate Amino Transferase (AST) 8 U/L (13-40) L Total Bilirubin 0.4 mg/dL (0.2-1.0) Urinalysis Test 08/01/24 01:50 Urine Color Light-yellow (Yellow) Urine Clarity Turbid (Clear) H Urine pH 5.5 (5.0-9.0) Urine Specific [place] 1.023 (1.001-1.035) Urine Protein 1+ (Negative) H Urine Ketones Trace (Negative) Urine Blood 3+ /uL (Negative) H Urine Nitrite Negative (Negative) Urine Bilirubin Negative (Negative) Urine Urobilinogen Normal mg/dL (Negative) Urine Leukocyte Esterase Negative /uL (Negative) Urine RBC 361 /hpf (0 - 3) Urine Microscopic WBC 8 /HPF (0-3) H Urine Squamous Epithelial Cells Few /hpf (<5) Urine Bacteria Few /hpf (None Seen) H Urine Mucus Few (None Seen) Urine Glucose Normal mg/dL (Normal) Microbiology Microbiology Date/Time Source Procedure Growth Status 08/01/24 00:41 Blood Blood Culture - Preliminary NO GROWTH AFTER 24 HOURS OF INCUBATION. Resulted Labs and/or images reviewed: Labs reviewed by me, Image(s) reviewed by me Assessment/Plan Assessment/Plan 68-year-old male presents for evaluation of shortness for breath. Patient is a poor historian. Per ED records and personnel patient presents with shortness for breath has been ongoing for the past two days. He has also been having a productive cough with mild blood-tinged. Denies chest pain or palpitations. No other acute complaints reported. Community-acquired pneumonia Acute hypoxic respiratory failure COPD exacerbation weakness difficulty walking obesity hematemesis 08/02/2024: pending evaluation by cardiology continue with Abx for pna GI consult as appropriate Plan discussed with: Patient Date of Service: Aug 02, 2024 Billing Provider: JOHN VENTURA DO Common Visit Codes: [id number] INP/OBS CARE(HIGH) JOHN VENTURA DO Aug 02, 2024 13:52
--- NOTE | 2024-08-02 14:30 | DVH ---
EXAM: CT HEAD WITHOUT CONTRAST HISTORY: stroke symptoms COMPARISON: None TECHNIQUE: Axial images of the head were obtained and reformatted in coronal and sagittal planes. All CT scans at this medical facility are performed using dose modulation techniques as appropriate t o a performed exam including the following: Automated exposure control was utilized; adjustment of th e MA and/or KV according to patient size; and use of iterative reconstruction technique. CT Dose: CTDI volume is 63 mGy. Dose-length product is 1247 mGy*cm FINDINGS: There are postsurgical changes related left frontal craniotomy. There is encephalomalacia in the unde rlying left lateral frontal lobe. There is no evidence of acute intracranial hemorrhage, mass, mass effect midline shift. There is no h ydrocephalus or extra-axial fluid collection. The visualized paranasal sinuses and mastoid air cells are clear. The calvarium is intact. IMPRESSION: 1. No acute intracranial process. 2. Postsurgical changes in the left frontal lobe is described above. HS:Y
--- NOTE | 2024-08-02 18:35 | DVHCONRES ---
Date Seen: Aug 02, 2024 Resident Creating Document: CARLOTTA GARCIA RESIDENT Referring Physician Dr Munoz Reason for Consultation GI bleed History of Present Illness Patient is 68-year-old man with past medical history of Chronic obstructive pulmonary disease, seizure, questionable dementia and hypertension who presented to hospital with a chief complaint of shortness of breath. GI consultation was done for blood-tinged cough, ruling out upper GI bleed. Patient's speech is of hold, patient is worried insulin not able to provide proper history. All medical information obtained from EMR, nurse staff. As per nurse the patient also had bloody stool, but no diarrhea in last 12 hours. No complaints of chest pain, palpitation, fever, any other symptoms. Patient is treated for pneumonia with antibiotics and breathing treatment. Past Medical History Hypertension, Chronic obstructive pulmonary disease, season, possible dementia Past Surgical History Done Allergies: Coded Allergies: NO KNOWN ALLERGIES (Unverified , 07/31/24) Current Medications Current Medications Medications (Trade) Dose Ordered Sig/Camelia Route PRN Reason Start Time Stop Time Status Last Admin Methylprednisolone Sodium Succinate (Solu Medrol) 40 mg BID IV 08/02/24 10:00 08/02/24 09:21 Pantoprazole Sodium (Protonix) 40 mg DAILY IV 08/02/24 10:00 08/02/24 09:21 Sodium Chloride 1,000 ml @ 75 mls/hr [id number] IV 08/02/24 06:00 08/02/24 09:55 Review of Systems Shortness of breath, blood-tinged sputum, possible lower GI bleed. No any other new complaint Vital Signs Vital Signs Date Time Temp Pulse Resp B/P (MAP) Pulse Ox O2 Delivery O2 Flow Rate FiO2 08/02/24 17:01 98.2 84 20 122/77 (92) 96 98.2 08/02/24 17:00 Nasal Cannula* 2 28 Physical Exam Patient is on oxygen via nasal cannula. General Appearance: Cooperative. Well developed. Well nourished. NAD Head Exam: Normal inspection Neck Exam: Normal inspection. Non-tender. Normal alignment Pulmonary/Respiratory: Chest non-tender. Clear bilateral breath sounds Cardiovascular/Chest: Regular rate and rhythm. No murmurs. No JVD. Peripheral Pulses: 2+ Radial (R). 2+ Radial (L). 2+ Pedal (R). 2+ Pedal (L) Abdominal Exam: Normal bowel sounds. Soft. Nontender. No hepatospenomegaly. No masses Ankle Exam: Negative ankle edema Lower extremities: Negative lower extremity edema Neuro/Mental Status: A&O x4. Coherent Thoughts/Psych: Normal thought pattern. Appropriate mood and affect. Good judgement and insight Appearance: In no acute distress Skin Exam: Normal inspection. Normal color. Warm. Dry Labs/Diagnostic Data Labs Test 08/02/24 06:02 08/02/24 06:00 08/01/24 02:50 08/01/24 02:11 Range/Units White Blood Count 12.1 H 4.4-10.8 10^3/uL Red Blood Count 3.03 L 4.5-5.90 10^6/uL Hemoglobin 8.4 #L 13.5-17.5 g/dL Hematocrit 25.8 #L 41.0-53.0 % Mean Corpuscular Volume 85.0 80.0-100.0 fL Mean Corpuscular Hemoglobin 27.6 L 28.0-32.0 pg Mean Corpuscular Hemoglobin Concent 32.5 32.0-36.0 g/dL Red Cell Distribution Width 15.0 H 11.8-14.3 % Platelet Count 337 140-450 10^3/uL Mean Platelet Volume 9.8 6.9-10.8 fL Neutrophils (%) (Auto) 81.7 H 37.0-80.0 % Lymphocytes (%) (Auto) 9.2 L 10.0-50.0 % Monocytes (%) (Auto) 8.4 0.0-12.0 % Eosinophils (%) (Auto) 0.1 0.0-7.0 % Basophils (%) (Auto) 0.6 0.0-2.0 % Neutrophils # (Auto) 9.8 H 1.6-8.6 10 ^3/uL Lymphocytes # (Auto) 1.1 0.4-5.4 10 ^3/uL Monocytes # (Auto) 1.0 0-1.3 10 ^3/uL Eosinophils # (Auto) 0 0-0.8 10 ^3/uL Basophils # (Auto) 0.1 0-0.2 10 ^3/uL Nucleated Red Blood Cells 0.1 % Prothrombin Time 11.5 9.3-11.8 sec Prothrombin Time INR 1.09 0.9-1.15 Sodium Level 144 136-145 mmol/L Potassium Level 4.4 3.5-5.1 mmol/L Chloride Level 111 H 98-107 mmol/L Carbon Dioxide Level 24 20-31 mmol/L Anion Gap 9 5-15 Blood Urea Nitrogen 55 #H 9-23 mg/dL Creatinine 1.28 0.700-1.30 mg/dL Glomerular Filtration Rate Calc 61 >90 mL/min BUN/Creatinine Ratio 43.0 H 10.0-20.0 Serum Glucose 119 H 74-106 mg/dL Calcium Level 9.8 8.7-10.4 mg/dL Total Bilirubin 0.4 0.2-1.0 mg/dL Aspartate Amino Transferase (AST) 8 L 13-40 U/L Alanine Aminotransferase (ALT) 18 7-40 U/L Alkaline Phosphatase 37 L 46-116 U/L Total Protein 6.2 5.7-8.2 g/dL Albumin 4.0 3.2-4.8 g/dL Stool Occult Blood Positive Negative Stool Occult Blood Sample #3 Negative Lactic Acid Level 1.9 0.4-2.0 mmol/L Troponin I High Sensitivity 24 </=54 ng/L Test 08/01/24 01:50 08/01/24 00:44 08/01/24 00:41 Range/Units Urine Color Light-yellow Yellow Urine Clarity Turbid H Clear Urine pH 5.5 5.0-9.0 Urine Specific [place] 1.023 1.001-1.035 Urine Protein 1+ H Negative Urine Ketones Trace Negative Urine Blood 3+ H Negative /uL Urine Nitrite Negative Negative Urine Bilirubin Negative Negative Urine Urobilinogen Normal Negative mg/dL Urine Leukocyte Esterase Negative Negative /uL Urine RBC 361 0 - 3 /hpf Urine Microscopic WBC 8 H 0-3 /HPF Urine Squamous Epithelial Cells Few <5 /hpf Urine Bacteria Few H None Seen /hpf Urine Mucus Few None Seen Urine Glucose Normal Normal mg/dL Influenza Type A Antigen Negative Negative Influenza Type B Antigen Negative Negative SARS-CoV-2 Antigen (Rapid) Negative NEGATIVE D-Dimer, Quantitative 0.85 H 0.0-0.49 mg/L FEU B-Type Natriuretic Peptide 27.44 0-100 pg/mL Microbiology Date/Time Source Procedure Growth Status 08/01/24 00:41 Blood Blood Culture - Preliminary NO GROWTH AFTER 24 HOURS OF INCUBATION. Resulted Assessment GI bleed upper versus lower Acute hypoxic respiratory failure Pneumonia History of hypertension History of seizure Possible dementia Plan/recommendation -continue with Protonix 40 mg IV daily, NPO from midnight, we will re-evaluate patient in the morning possible requirement of cardiac clearance given patient's tachycardia with multiple PVCs, likely sinus tachycardia. -possible EGD tomorrow based on patient's clinical status. -obtained consent -continue to monitor hemoglobin and hematocrit -occult blood positive Plan discussed with: Patient, Other (RN) CARLOTTA GARCIA RESIDENT Aug 02, 2024 18:35
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
--- NOTE | 2024-08-02 23:32 | DVHPN2 ---
Progress Note - Dictate Date Seen: Aug 02, 2024 Medical Necessity Reason Pt with a Central, PICC or Fol: Yes The following are medically ne: Tate Catheter Reason for tate catheter: Strict I&O Subjective Patient seen and examined at bedside. Remains on supplemental oxygen Overnight events reviewed. vital signs Vital Sign Date Time Temp Pulse Resp B/P (MAP) Pulse Ox O2 Delivery O2 Flow Rate FiO2 08/02/24 21:00 97.8 88 19 132/78 (96) 98 97.8 08/02/24 20:00 Nasal Cannula* 2 28 Total Intake and Output 08/01/24 08/01/24 08/02/24 15:00 23:00 07:00 Intake Total 550 ml Output Total 200 ml Balance 550 ml -200 ml medications Current Medications Medications Dose Ordered Sig/Camelia Route Start Time Stop Time Status Last Admin Dose Admin Albuterol 2.5 mg Q6HPRN PRN NEB 08/01/24 01:45 08/02/24 06:54 2.5 MG Ipratropium [place] 0.5 mg Q6HPRN PRN NEB 08/01/24 01:45 08/02/24 06:54 0.5 MG Ceftriaxone Sodium 50 ml @ 100 mls/hr DAILY@09 IV 08/01/24 09:00 08/02/24 09:17 100 MLS/HR Azithromycin 250 ml @ 125 mls/hr DAILY IV 08/01/24 10:00 08/02/24 09:55 125 MLS/HR Levetiracetam 750 mg BID PO 08/01/24 10:00 08/02/24 21:34 750 MG Memantine 5 mg Q12HR PO 08/01/24 10:00 08/02/24 21:26 5 MG Clopidogrel Bisulfate 75 mg DAILY PO 08/01/24 10:00 08/02/24 09:20 75 MG Nifedipine 60 mg DAILY PO 08/01/24 10:00 08/02/24 09:20 60 MG Ondansetron HCl 4 mg Q4HP PRN IV 08/01/24 01:45 08/01/24 11:32 4 MG Acetaminophen 650 mg Q6HP PRN PO 08/01/24 01:45 Nitroglycerin 0.4 mg Q5MINP PRN SL 08/01/24 01:45 Morphine Sulfate 2 mg Q30M PRN IV 08/01/24 01:45 Methylprednisolone Sodium Succinate 40 mg BID IV 08/02/24 10:00 08/02/24 21:34 40 MG Guaifenesin/ Dextromethorphan 10 ml Q4HP PRN PO 08/01/24 05:00 Pantoprazole Sodium 40 mg DAILY IV 08/02/24 10:00 08/02/24 09:21 40 MG Sodium Chloride 1,000 ml @ 75 mls/hr [id number] IV 08/02/24 06:00 08/02/24 09:55 75 MLS/HR Carbidopa/Levodopa 0.5 tab TID PO 08/03/24 06:00 objective Gen.: Patient lying in bed in no apparent distress. On supplemental oxygen. Head: Normocephalic, atraumatic. Eyes: EOMI/PERRLA. Ears: Normal hearing. Normal anatomy. Neck/trachea: Trachea midline, supple. Nose: Normal external anatomy. Mouth: Moist mucous membranes. Chest: Decreased air entry bilaterally. No wheezing or rhonchi. Cardiovascular: Positive S1, positive S2. Regular rate and rhythm. Abdomen: Positive bowel sounds in all 4 quadrants. Soft, non-tender, non- distended. : Deferred. Rectal: Deferred. Skin: Warm, dry. Intact. Extremities: 2+ radial pulses bilaterally. No lower extremity edema. Neuro: Awake, alert, oriented x3. No gross motor or sensory deficits. Cranial nerves II through XII intact. Gait not assessed. laboratory and microbiology Laboratory Tests 08/02/24 06:02 Test 08/02/24 06:02 Range/Units Serum Glucose 119 H 74-106 mg/dL Assessment/Plan Impression: Acute hypoxic respiratory failure Dependence on supplemental oxygen Community-acquired pneumonia Acute COPD exacerbation Obesity Events: Remains on supplemental oxygen, 2 LPM NC Taper O2 as tolerated Head CT demonstrated no acute intracranial process. Continue bronchodilators IV steroids Continue antibiotics Blood pressure control Labs and imaging reviewed. Rest of plan as noted below. Plan: Supplemental oxygen Titrate to keep O2 sats above 92%. CXR reviewed, demonstrates right middle and lower lobe atelectasis. CTA reveals no pulmonary embolism. Right lower lobe partial consolidation, likely atelectasis or pneumonia. Continue bronchodilators. IV steroids Continue antibiotics Incentive spirometry Antiepileptic medication - Keppra On Plavix Monitor renal function. Monitor electrolytes. Supplement as necessary. Monitor ins and outs. Diet and lifestyle modifications for weight reduction Obesity - complicates all care DVT prophylaxis. Prognosis: Guarded given patient's multiple co-morbidities. Rest of plan per hospitalist and other consultants. Thank you Dr. Munzo, for allowing me to participate in this patient's care. Further recommendations will depend on the patient's clinical course. Please do not hesitate to contact me if you have any questions or concerns. This medical document was created using an electronic medical record system with [employer] dictation system. Although these documentations are being carefully reviewed, there may still be some phonetic and typographical changes. The errors are purely typographical, due to imperfection on the software program, and do not reflect any compromise in the patient's medical care. Plan discussed with: Patient, Other (GINO Chin) JOVANA FOREMAN MD Aug 02, 2024 23:32
[2024-08-03] VITALS (10 sets, daily range): BP systolic 100–125; BP diastolic 56–73; PULSE 69–78; RESP 17–23; TEMP 97.4–98.6; O2SAT 92–100
[2024-08-03] MEDS: CARBIDOPA W LEVODOPA 25/250mg TABLET PO SCH (06:00)
[2024-08-03] MEDS ORDERED: SODIUM CHLORIDE LOCK 0 ML ONE (08:37)
[2024-08-03] MEDS ORDERED: LIDOCAINE VISCOUS 2% 15ML UD ONE (08:37)
[2024-08-03] MEDS ORDERED: MIDAZOLAM HCL 5 MG/ML-1ML VIAL ONE (08:37)
[2024-08-03] MEDS ORDERED: NALOXONE HCL 0.4 MG/ML VIAL ONE (08:38)
[2024-08-03] MEDS ORDERED: diphenhdrAMINE HCL 50 MG/1 ML VL ONE (08:38)
[2024-08-03] MEDS ORDERED: fentaNYL CITRATE 100 MCG/2 ML VL ONE ×2 (08:38→08:55)
[2024-08-03] MEDS ORDERED: FLUMAZENIL 0.1 MG/ML INJ 10ML MDV IV ONE (08:38)
[2024-08-03] MEDS ORDERED: LIDOCAINE 2% (LOCAL ANESTH.) PF 5ml SDV ONE (08:55)
[2024-08-03] MEDS ORDERED: PROPOFOL 10 MG/ML 20 ML IV ONE (08:55)
[2024-08-03] MEDS ORDERED: GLYCOPYRROLATE 0.2 MG/ML 1ML VIAL ONE (08:55)
[2024-08-03] MEDS ORDERED: ONDANSETRON HCL 4 MG/2 ML VIAL ONE (08:55)
[2024-08-03] MEDS ORDERED: HYDROmorphone HCL 2 MG/ML VL/or syr IV PRN (09:00)
--- NOTE | 2024-08-03 09:32 | DVHOP2 ---
Operative Report DATE OF OPERATION: 08/03/24 PROCEDURE: Upper Endoscopy with biopsy. PREOPERATIVE INDICATION: The patient is a 68 -year-old male undergoing endoscopy for questionable history of upper GI bleed and anemia POSTOPERATIVE DIAGNOSES: 1. 0.5-1 cm sliding-type hiatal hernia with no significant erosive esophagitis 2. Minimal antral gastritis otherwise normal examination up to the 2nd and 3rd part of the duodenum PROCEDURE PERFORMED BY: Gareth Calvo GI NURSE: Betsy SCOPE: Olympus videoendoscope. ASA CLASS: 3. PREOPERATIVE MEDICATIONS: Mac latricia, Dr. Louise PROCEDURE IN DETAIL: After obtaining an informed consent, the patient was placed on left lateral decubitus position. The patient was then sedated with the above medications. A bite block was placed between his teeth. The endoscope was then passed through the oropharynx, into the esophagus, and through the stomach and pylorus up to the second and third part of the duodenum. The endoscope was then withdrawn. The 2nd and 3rd part of the duodenum and the duodenal bulb were normal. There was good bile drainage There was no fresh or old blood in the upper GI tract. There was minimal gastritis. Duodenal and gastric biopsies were obtained. The endoscope was then withdrawn into the distal esophagus. Patient had a 0.5-1 cm sliding-type hiatal hernia with no esophagitis. The remaining distal and proximal esophagus and oropharynx were unremarkable The patient tolerated the procedure well without difficulty. COMPLICATIONS : None SPECIMENS: Duodenal Gastric DISPOSITION: Transfer back to the floor Stable PLAN: 1. Await for biopsy result 2. Will place pt on Protonix 40 p.o. daily 3. I do not believe the patient had any significant upper GI bleed but there is reported history of hemoptysis possibly related to pneumonia 4. Continue to monitor labs and advance diet as tolerated GARETH CALVO MD Aug 03, 2024 09:32
--- NOTE | 2024-08-03 18:29 | DVHINCON2 ---
Date of service: Aug 03, 2024 Referring Physician Tammy Reason for Consultation Tachycardia History of Present Illness This is a 68 year old male with a PMH of HTN, COPD who was brought in by EMS with complaint of shortness of breath x 1 day. He has also been having a productive cough with mild blood-tinged. O2 sat upon EMS arrival was 86% RA. EMS placed the patient on 15 NRB with improvement to 96%. Chest x-ray showed right middle and lower lobe atelectasis. CTA chest shows no evidence of PE. Some of the distal pulmonary arteries cannot be evaluated due to suboptimal opacification. Right lower lobe partial consolidation, likely atelectasis or pneumonia. WBC 15.3, D-dimer 0.85, BUN 39, BNP 27.44. Troponin is negative. Patient was admitted to the hospital. I am asked to consult on this patient. Allergies: Coded Allergies: NO KNOWN ALLERGIES (Unverified , 07/31/24) Current Medications Current Medications Medications (Trade) Dose Ordered Sig/Camelia Route PRN Reason Start Time Stop Time Status Last Admin Carbidopa/Levodopa (Sinemet 25/ 250MG) 0.5 tab TID PO 08/03/24 06:00 08/03/24 14:09 Hydromorphone HCl (Dilaudid Injection) 0.25 mg Q10M PRN IV MODERATE PAIN (4-6 PAIN SCALE) 08/03/24 09:00 08/03/24 09:31 DC Metoprolol Tartrate (Lopressor Tablet) 12.5 mg BID PO 08/03/24 22:00 Review of Systems Constitutional: denies: chills, diaphoresis, fatigue, fever, malaise, sweats, weakness, others EENTM: denies: blurred vision, double vision, ear bleeding, ear discharge, ear drainage, ear pain, ear ringing, eye pain, eye redness, hearing loss, mouth pain, mouth swelling, nasal discharge, nose bleeding, nose congestion, nose pain, photophobia, tearing, throat pain, throat swelling, voice changes, others Respiratory: reports: cough, hemoptysis, shortness of breath; denies: orthopnea, SOB at rest, SOB with excertion, stridor, wheezing, others Cardiovascular: denies: chest pain, dizzy spells, diaphoresis, Dyspnea on exe rtion, edema, irregular heart beat, left arm pain, lightheadedness, palpitations, PND, syncope, others Gastrointestinal: denies: abdomen distended, abdominal pain, blood streaked bowels, constipated, diarrhea, dysphagia, difficulty swallowing, hematemesis, melena, nausea, poor appetite, poor fluid intake, rectal bleeding, rectal pain, vomiting, others Genitourinary: denies: burning, dysuria, flank pain, frequency, hematuria, incontinence, penile discharge, penile sore, pain, testicle pain, testicle swelling, urgency, others Neurological: denies: dizziness, fainting, headache, left sided numbness, left sided weakness, numbness, paresthesia, pre-existing deficit, right sided numbness, right sided weakness, seizure, speech problems, tingling, tremors, weakness, others Musculoskeletal: denies: back pain, gout, joint pain, joint swelling, muscle pain, muscle stiffness, neck pain, others Integumetry: denies: bruises, change in color, change in hair/nails, dryness, laceration, lesions, lumps, rash, wounds, others Allergic/Immunocompromised: denies: Difficulty Healing, Frequent Infections, Hives, Itching, others Hematologic/Lymphatic: denies: anemia, blood clots, easy bleeding, easy bruising, swollen glands, others Endocrine: denies: excessive hunger, excessive sweating, excessive thirst, excessive urination, flushing, intolerance to cold, intolerance to heat, unexplained weight gain, unexplained weight loss, others Psychiatric: denies: anxiety, bipolar disorder, depression, hopeless, panic disorder, schizophrenia, sleepless, suicidal, others All Other Systems: Reviewed and Negative Vital Signs Vital Signs Date Time Temp Pulse Resp B/P (MAP) Pulse Ox O2 Delivery O2 Flow Rate FiO2 08/03/24 13:00 97.4 74 21 125/67 (86) 98 97.4 08/03/24 10:00 Nasal Cannula 2.0 08/03/24 10:00 28 Physical Exam GENERAL: Awake, alert, oriented. LUNGS: Decreased breath sounds. CARDIOVASCULAR: Heart sounds are good. ABDOMEN: Soft. Labs/Diagnostic Data Labs Test 08/02/24 06:02 08/02/24 06:00 08/01/24 02:50 08/01/24 02:11 Range/Units White Blood Count 12.1 H 4.4-10.8 10^3/uL Red Blood Count 3.03 L 4.5-5.90 10^6/uL Hemoglobin 8.4 #L 13.5-17.5 g/dL Hematocrit 25.8 #L 41.0-53.0 % Mean Corpuscular Volume 85.0 80.0-100.0 fL Mean Corpuscular Hemoglobin 27.6 L 28.0-32.0 pg Mean Corpuscular Hemoglobin Concent 32.5 32.0-36.0 g/dL Red Cell Distribution Width 15.0 H 11.8-14.3 % Platelet Count 337 140-450 10^3/uL Mean Platelet Volume 9.8 6.9-10.8 fL Neutrophils (%) (Auto) 81.7 H 37.0-80.0 % Lymphocytes (%) (Auto) 9.2 L 10.0-50.0 % Monocytes (%) (Auto) 8.4 0.0-12.0 % Eosinophils (%) (Auto) 0.1 0.0-7.0 % Basophils (%) (Auto) 0.6 0.0-2.0 % Neutrophils # (Auto) 9.8 H 1.6-8.6 10 ^3/uL Lymphocytes # (Auto) 1.1 0.4-5.4 10 ^3/uL Monocytes # (Auto) 1.0 0-1.3 10 ^3/uL Eosinophils # (Auto) 0 0-0.8 10 ^3/uL Basophils # (Auto) 0.1 0-0.2 10 ^3/uL Nucleated Red Blood Cells 0.1 % Prothrombin Time 11.5 9.3-11.8 sec Prothrombin Time INR 1.09 0.9-1.15 Sodium Level 144 136-145 mmol/L Potassium Level 4.4 3.5-5.1 mmol/L Chloride Level 111 H 98-107 mmol/L Carbon Dioxide Level 24 20-31 mmol/L Anion Gap 9 5-15 Blood Urea Nitrogen 55 #H 9-23 mg/dL Creatinine 1.28 0.700-1.30 mg/dL Glomerular Filtration Rate Calc 61 >90 mL/min BUN/Creatinine Ratio 43.0 H 10.0-20.0 Serum Glucose 119 H 74-106 mg/dL Calcium Level 9.8 8.7-10.4 mg/dL Total Bilirubin 0.4 0.2-1.0 mg/dL Aspartate Amino Transferase (AST) 8 L 13-40 U/L Alanine Aminotransferase (ALT) 18 7-40 U/L Alkaline Phosphatase 37 L 46-116 U/L Total Protein 6.2 5.7-8.2 g/dL Albumin 4.0 3.2-4.8 g/dL Stool Occult Blood Positive Negative Stool Occult Blood Sample #3 Negative Lactic Acid Level 1.9 0.4-2.0 mmol/L Troponin I High Sensitivity 24 </=54 ng/L Test 08/01/24 01:50 08/01/24 00:44 08/01/24 00:41 Range/Units Urine Color Light-yellow Yellow Urine Clarity Turbid H Clear Urine pH 5.5 5.0-9.0 Urine Specific [place] 1.023 1.001-1.035 Urine Protein 1+ H Negative Urine Ketones Trace Negative Urine Blood 3+ H Negative /uL Urine Nitrite Negative Negative Urine Bilirubin Negative Negative Urine Urobilinogen Normal Negative mg/dL Urine Leukocyte Esterase Negative Negative /uL Urine RBC 361 0 - 3 /hpf Urine Microscopic WBC 8 H 0-3 /HPF Urine Squamous Epithelial Cells Few <5 /hpf Urine Bacteria Few H None Seen /hpf Urine Mucus Few None Seen Urine Glucose Normal Normal mg/dL Influenza Type A Antigen Negative Negative Influenza Type B Antigen Negative Negative SARS-CoV-2 Antigen (Rapid) Negative NEGATIVE D-Dimer, Quantitative 0.85 H 0.0-0.49 mg/L FEU B-Type Natriuretic Peptide 27.44 0-100 pg/mL Microbiology Date/Time Source Procedure Growth Status 08/01/24 00:41 Blood Blood Culture - Preliminary NO GROWTH AFTER 48 HOURS OF INCUBATION. Resulted Assessment Community-acquired pneumonia. Acute hypoxic respiratory failure. COPD exacerbation. Obesity. Tachycardia. Plan/Recommendation I agree with your ongoing assessment and care of plan. Telemetry reviewed. IV antibiotics as ordered. Sinemet. Metoprolol, Plavix. Morphine for pain management. GI prophylactics. Additional plan as per the hospital course. A total of 45 minutes was spent reviewing the patient record, examining the patient, making a diagnostic and therapeutic plan, discussing this plan with medical personnel, following up on diagnostic studies and following the patient for clinical stability excluding any and all procedures. At least 50% of this time was spent in direct, [id number] contact. Plan discussed with: Patient ISBELL,MUKESHCHANDRA M MD Aug 03, 2024 14:35
--- NOTE | 2024-08-03 19:34 | DVHPN2 ---
Progress Note - Dictate Date Seen: Aug 03, 2024 Medical Necessity Reason Pt with a Central, PICC or Fol: Yes The following are medically ne: Tate Catheter Reason for tate catheter: Strict I&O Subjective Mr. Jane is a 68 years old right-handed gentleman with a history of hypertension, COPD, rhabdomyolysis, status post craniotomy, he was brought to the [facility] on 07/31/2024 with a chief company of shortness breath x1 day. I have seen and examined the patient, I have talked to his nurse, he looks doing better today, awake, voice brace slurry, but is oriented to person, place, and he knows year and the month He still have resting tremor in the right hand, but cogwheeling and muscle tone are better Stool occult blood, 08/02/2024: positive Urinalysis, 08/01/2024: WBC: 8, urine leukocyte esterase: Negative WBC/HB/PLT/MCV, 08/02/2024: 12.1/8.4/337/85 BUN/CR, 08/01/2024: 39/1, 08/02/2024: 55/1.28, Lactic acid, 08/01/24: 2.2 Liver function tests, 08/02/2024: Unremarkable CT head, 08/02/2024: 1. No acute intracranial process. 2. Postsurgical changes in the left frontal lobe is described above vital signs Vital Sign Date Time Temp Pulse Resp B/P (MAP) Pulse Ox O2 Delivery O2 Flow Rate FiO2 08/03/24 19:14 97 Nasal Cannula* 2 28 08/03/24 17:00 98.6 75 23 119/61 (80) 98.6 Total Intake and Output 08/02/24 08/02/24 08/03/24 15:00 23:00 07:00 Intake Total 250 ml 0 ml 1000 ml Output Total 800 ml 500 ml Balance 250 ml -800 ml 500 ml medications Current Medications Medications Dose Ordered Sig/Camelia Route Start Time Stop Time Status Last Admin Dose Admin Albuterol 2.5 mg Q6HPRN PRN NEB 08/01/24 01:45 08/02/24 06:54 2.5 MG Ipratropium [place] 0.5 mg Q6HPRN PRN NEB 08/01/24 01:45 08/02/24 06:54 0.5 MG Ceftriaxone Sodium 50 ml @ 100 mls/hr DAILY@09 IV 08/01/24 09:00 08/03/24 10:40 100 MLS/HR Azithromycin 250 ml @ 125 mls/hr DAILY IV 08/01/24 10:00 08/03/24 12:42 125 MLS/HR Levetiracetam 750 mg BID PO 08/01/24 10:00 08/03/24 10:41 750 MG Memantine 5 mg Q12HR PO 08/01/24 10:00 08/03/24 10:41 5 MG Clopidogrel Bisulfate 75 mg DAILY PO 08/01/24 10:00 08/03/24 10:40 75 MG Nifedipine 60 mg DAILY PO 08/01/24 10:00 08/03/24 10:44 60 MG Ondansetron HCl 4 mg Q4HP PRN IV 08/01/24 01:45 08/01/24 11:32 4 MG Acetaminophen 650 mg Q6HP PRN PO 08/01/24 01:45 Nitroglycerin 0.4 mg Q5MINP PRN SL 08/01/24 01:45 Morphine Sulfate 2 mg Q30M PRN IV 08/01/24 01:45 Methylprednisolone Sodium Succinate 40 mg BID IV 08/02/24 10:00 08/03/24 10:40 40 MG Guaifenesin/ Dextromethorphan 10 ml Q4HP PRN PO 08/01/24 05:00 Pantoprazole Sodium 40 mg DAILY IV 08/02/24 10:00 08/03/24 10:40 40 MG Sodium Chloride 1,000 ml @ 75 mls/hr [id number] IV 08/02/24 06:00 08/03/24 08:40 75 MLS/HR Carbidopa/Levodopa 0.5 tab TID PO 08/03/24 06:00 08/03/24 14:09 0.5 TAB Metoprolol Tartrate 12.5 mg BID PO 08/03/24 22:00 objective General: the patient is well developed and nourished. No acute distress. MENTAL STATUS: Awake and alert. Oriented to person, place, he knows year and the month SPEECH, LANGUAGE, HIGHER CORTICAL FUNCTION: no aphasia but he was moderate dysarthria, soft voice CRANIAL NERVES: Pupils are equal, round and reactive. EOMs full and conjugate. Facial sensation intact in all three divisions bilaterally. Mandibular strength intact. Facial muscles symmetrical and strength intact. He was diminished facial expression and blinking SENSATION: Sensation to touch and pinprick is fine MOTOR: Resting tremor in the right hand, cogwheeling in the left wrist. Atrophy in bilateral intrinsic hand muscle. Muscle strength of the major groups in the upper extremities is 4/5. Muscle strength of the major groups in the lower extremities is 2/5. REFLEXES: Deep tendon reflexes normal and symmetrical. No pathological reflexes. CEREBELLAR/COORDINATION: Mild intentional tremor noticed in the right-handed GAIT/STATION: deferred. 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 Chronic organic brain injury Parkinson's disease ? Cognitive dysfunction, ? Alzheimer disease, ? Secondary to chronic brain injury On Keppra, ? Seizure disorder Respiratory failure/COPD exacerbation Pneumonia Assessment/Plan Monitoring Supportive treatment Telemetry EEG Keppra 750 mg b.i.d. Memantine 5 mg b.i.d. Sinemet 25/100 mg 0.5 tablets t.i.d. considered to increase IV antibiotics More recommendation per clinical course Prognosis: Poor This medical document was created using an electronic medical record system with B[employer]ovo dictation system. Although this document has been carefully reviewed, there may still be some phonetic and typographical errors. These areas are purely typographical due to imperfections of the software programs, and do not reflect any compromise in the patient's medical care Prognosis poor Plan discussed with: Other Total Time (mins): 35 KD GRIMALDO MD Aug 03, 2024 19:34
[2024-08-03 20:22] LABS: LDL Cholesterol 85 mg/dL (< 100)
[2024-08-03 20:23] LABS: Cholesterol 130 mg/dL (< 200)
[2024-08-03 20:26] LABS: Free T4 (Free Thyroxine) 1.09 ng/dL (0.89-1.76)
[2024-08-03 20:27] LABS: HDL Cholesterol 23 mg/dL (40-59); Triglycerides 159 mg/dL (< 150)
[2024-08-03] MEDS: METOPROLOL TARTRATE 25 MG TAB PO SCH (22:16)
--- NOTE | 2024-08-03 23:28 | DVHPN2 ---
Progress Note - Dictate Date Seen: Aug 03, 2024 Medical Necessity Reason Pt with a Central, PICC or Fol: Yes The following are medically ne: Tate Catheter Reason for tate catheter: Strict I&O Subjective Patient seen and examined at bedside. Remains on supplemental oxygen Overnight events reviewed. vital signs Vital Sign Date Time Temp Pulse Resp B/P (MAP) Pulse Ox O2 Delivery O2 Flow Rate FiO2 08/03/24 22:16 67 124/45 08/03/24 21:00 98.3 19 97 98.3 08/03/24 20:00 Nasal Cannula* 2 28 Total Intake and Output 08/02/24 08/02/24 08/03/24 15:00 23:00 07:00 Intake Total 250 ml 0 ml 1000 ml Output Total 800 ml 500 ml Balance 250 ml -800 ml 500 ml medications Current Medications Medications Dose Ordered Sig/Camelia Route Start Time Stop Time Status Last Admin Dose Admin Albuterol 2.5 mg Q6HPRN PRN NEB 08/01/24 01:45 08/02/24 06:54 2.5 MG Ipratropium [place] 0.5 mg Q6HPRN PRN NEB 08/01/24 01:45 08/02/24 06:54 0.5 MG Ceftriaxone Sodium 50 ml @ 100 mls/hr DAILY@09 IV 08/01/24 09:00 08/03/24 10:40 100 MLS/HR Azithromycin 250 ml @ 125 mls/hr DAILY IV 08/01/24 10:00 08/03/24 12:42 125 MLS/HR Levetiracetam 750 mg BID PO 08/01/24 10:00 08/03/24 21:58 750 MG Memantine 5 mg Q12HR PO 08/01/24 10:00 08/03/24 22:16 5 MG Clopidogrel Bisulfate 75 mg DAILY PO 08/01/24 10:00 08/03/24 10:40 75 MG Nifedipine 60 mg DAILY PO 08/01/24 10:00 08/03/24 10:44 60 MG Ondansetron HCl 4 mg Q4HP PRN IV 08/01/24 01:45 08/01/24 11:32 4 MG Acetaminophen 650 mg Q6HP PRN PO 08/01/24 01:45 Nitroglycerin 0.4 mg Q5MINP PRN SL 08/01/24 01:45 Morphine Sulfate 2 mg Q30M PRN IV 08/01/24 01:45 Methylprednisolone Sodium Succinate 40 mg BID IV 08/02/24 10:00 08/03/24 21:57 40 MG Guaifenesin/ Dextromethorphan 10 ml Q4HP PRN PO 08/01/24 05:00 Pantoprazole Sodium 40 mg DAILY IV 08/02/24 10:00 08/03/24 10:40 40 MG Sodium Chloride 1,000 ml @ 75 mls/hr [id number] IV 08/02/24 06:00 08/03/24 08:40 75 MLS/HR Carbidopa/Levodopa 0.5 tab TID PO 08/03/24 06:00 08/03/24 22:16 0.5 TAB Metoprolol Tartrate 12.5 mg BID PO 08/03/24 22:00 08/03/24 22:16 12.5 MG objective Gen.: Patient lying in bed in no apparent distress. On supplemental oxygen. Head: Normocephalic, atraumatic. Eyes: EOMI/PERRLA. Ears: Normal hearing. Normal anatomy. Neck/trachea: Trachea midline, supple. Nose: Normal external anatomy. Mouth: Moist mucous membranes. Chest: Improved air entry bilaterally. No wheezing or rhonchi. Cardiovascular: Positive S1, positive S2. Regular rate and rhythm. Abdomen: Positive bowel sounds in all 4 quadrants. Soft, non-tender, non- distended. : Deferred. Rectal: Deferred. Skin: Warm, dry. Intact. Extremities: 2+ radial pulses bilaterally. No lower extremity edema. Neuro: Awake, alert, oriented x3. No gross motor or sensory deficits. Cranial nerves II through XII intact. Gait not assessed. laboratory and microbiology Laboratory Tests 08/02/24 06:02 Test 08/02/24 06:02 Range/Units Serum Glucose 119 H 74-106 mg/dL Assessment/Plan Acute hypoxic respiratory failure Dependence on supplemental oxygen Community-acquired pneumonia Acute COPD exacerbation Obesity Events: Remains on supplemental oxygen, 2 LPM NC Taper O2 as tolerated Continue bronchodilators IV steroids Continue antibiotics Head CT demonstrated no acute intracranial process. Labs and imaging reviewed. Rest of plan as noted below. Plan: Supplemental oxygen Titrate to keep O2 sats above 92%. CXR reviewed, demonstrates right middle and lower lobe atelectasis. CTA reveals no pulmonary embolism. Right lower lobe partial consolidation, likely atelectasis or pneumonia. Continue bronchodilators. IV steroids Continue antibiotics Incentive spirometry Antiepileptic medication - Keppra On Plavix Monitor renal function. Monitor electrolytes. Supplement as necessary. Monitor ins and outs. Diet and lifestyle modifications for weight reduction Obesity - complicates all care DVT prophylaxis. Prognosis: Guarded given patient's multiple co-morbidities. Rest of plan per hospitalist and other consultants. Thank you Dr. Munoz, for allowing me to participate in this patient's care. Further recommendations will depend on the patient's clinical course. Please do not hesitate to contact me if you have any questions or concerns. This medical document was created using an electronic medical record system with [employer] computerized dictation system. Although these documentations are being carefully reviewed, there may still be some phonetic and typographical changes. The errors are purely typographical, due to imperfection on the software program, and do not reflect any compromise in the patient's medical care. Plan discussed with: Patient, Other (GINO Chin) JOVANA FOREMAN MD Aug 03, 2024 23:27
[2024-08-04] VITALS (12 sets, daily range): BP systolic 103–130; BP diastolic 56–80; PULSE 56–80; RESP 18–24; TEMP 97.2–98.8; O2SAT 94–97
--- NOTE | 2024-08-04 13:40 | DVHPN2 ---
Progress Note Date Seen: Aug 04, 2024 Resident Creating Document: AYUSH KILPATRICK RESIDENT Medical Necessity Reason Pt with a Central, PICC or Fol: Yes The following are medically ne: Tate Catheter Reason for tate catheter: Strict I&O Subjective Review of Systems Patient was seen and examined on the bedside. He is alert oriented x3. The patient underwent EGD yesterday and revealed 0.5 to 1 cm sliding hiatal hernia, minimal antral gastritis otherwise examination of 2nd and 3rd part of the duodenum and hemoptysis likely related to pneumonia. No other active complaint. Objective vital signs Vital Sign Date Time Temp Pulse Resp B/P (MAP) Pulse Ox O2 Delivery O2 Flow Rate FiO2 08/04/24 10:57 63 124/73 08/04/24 09:00 98.2 21 97 98.2 08/04/24 02:24 2.0 32 08/03/24 20:00 Nasal Cannula* Total Intake and Output 08/03/24 08/03/24 08/04/24 15:00 23:00 07:00 Intake Total 400 ml 40 ml 700 ml Output Total 1800 ml 1700 ml Balance 400 ml -1760 ml -1000 ml medications Current Medications Medications Dose Ordered Sig/Camelia Route Start Time Stop Time Status Last Admin Dose Admin Ceftriaxone Sodium 50 ml @ 100 mls/hr DAILY@09 IV 08/01/24 09:00 08/04/24 10:57 100 MLS/HR Azithromycin 250 ml @ 125 mls/hr DAILY IV 08/01/24 10:00 08/04/24 10:57 125 MLS/HR Levetiracetam 750 mg BID PO 08/01/24 10:00 08/04/24 10:56 750 MG Memantine 5 mg Q12HR PO 08/01/24 10:00 08/04/24 10:56 5 MG Clopidogrel Bisulfate 75 mg DAILY PO 08/01/24 10:00 08/04/24 10:55 75 MG Nifedipine 60 mg DAILY PO 08/01/24 10:00 08/04/24 10:56 60 MG Ondansetron HCl 4 mg Q4HP PRN IV 08/01/24 01:45 08/01/24 11:32 4 MG Acetaminophen 650 mg Q6HP PRN PO 08/01/24 01:45 Nitroglycerin 0.4 mg Q5MINP PRN SL 08/01/24 01:45 Morphine Sulfate 2 mg Q30M PRN IV 08/01/24 01:45 Methylprednisolone Sodium Succinate 40 mg BID IV 08/02/24 10:00 08/04/24 10:55 40 MG Guaifenesin/ Dextromethorphan 10 ml Q4HP PRN PO 08/01/24 05:00 Pantoprazole Sodium 40 mg DAILY IV 08/02/24 10:00 08/04/24 10:55 40 MG Sodium Chloride 1,000 ml @ 75 mls/hr [id number] IV 08/02/24 06:00 08/04/24 11:00 75 MLS/HR Carbidopa/Levodopa 0.5 tab TID PO 08/03/24 06:00 08/03/24 22:16 0.5 TAB Metoprolol Tartrate 12.5 mg BID PO 08/03/24 22:00 08/04/24 10:57 12.5 MG Examination Physical examination: General Appearance: Alert, Oriented X3, Cooperative, No acute distress HEENT: Atraumatic, PERRLA, EOMI, Mucous membrane moist/pink Respiratory: Clear to auscultation, Normal air movement Cardiovascular: Regular rate, Normal S1, Normal S2, No murmurs, no chest wall tenderness Abdominal: Normal bowel sounds, Soft, No tenderness, No hepatospenomegaly, No masses Extremities: No clubbing, No cyanosis, No edema, Normal pulses, No tenderness/swelling Skin: No rashes, No breakdown, No significant lesion Neuro: Resting tremor, slow shuffling gait, slurred speech, Strength at 5/5 X4 ext, Normal tone, Sensation intact, grossly intact cranial nerves Psych/Mental Status: Mental status NL, Mood NL laboratory and microbiology Laboratory Tests 08/02/24 06:02 Test 08/02/24 06:02 Range/Units Serum Glucose 119 H 74-106 mg/dL Microbiology Date/Time Source Procedure Growth Status 08/01/24 00:41 Blood Blood Culture - Preliminary NO GROWTH AFTER 72 HOURS OF INCUBATION. Resulted Labs and/or images reviewed: Labs reviewed by me, Image(s) reviewed by me Problem List/Assessment/Plan Problem List/Assessment/Plan Assessment Hemoptysis likely related to pneumonia Ruled out GI bleeding Acute hypoxic respiratory failure Pneumonia History of hypertension History of seizure Possible Parkinson's disease Possible dementia EGD on 08/03/24 revealed 0.5-1 cm sliding-type hiatal hernia with no significant erosive esophagitis and minimal antral gastritis otherwise normal examination up to the 2nd and 3rd part of the duodenum. Plan/recommendation - Pureed diet and advance as tolerated. -continue with Protonix 40 mg po daily. - Monitor H/H -occult blood positive - Continue IV antibiotic and other management as per Hospitalist - Recommended outpatient elective colonoscopy - Will monitor the patient. Plan discussed with Dr. Calvo Plan discussed with: Patient, Other AYUSH KILPATRICK RESIDENT Aug 04, 2024 13:40
--- NOTE | 2024-08-04 14:50 | DVHPN2 ---
Progress Note - Dictate Date Seen: Aug 04, 2024 Medical Necessity Reason Pt with a Central, PICC or Fol: Yes The following are medically ne: Tate Catheter Reason for tate catheter: Strict I&O vital signs Vital Sign Date Time Temp Pulse Resp B/P (MAP) Pulse Ox O2 Delivery O2 Flow Rate FiO2 08/04/24 13:00 98.2 73 24 130/59 (82) 96 98.2 08/04/24 08:00 Nasal Cannula* 2 28 Total Intake and Output 08/03/24 08/03/24 08/04/24 15:00 23:00 07:00 Intake Total 400 ml 40 ml 700 ml Output Total 1800 ml 1700 ml Balance 400 ml -1760 ml -1000 ml medications Current Medications Medications Dose Ordered Sig/Camelia Route Start Time Stop Time Status Last Admin Dose Admin Ceftriaxone Sodium 50 ml @ 100 mls/hr DAILY@09 IV 08/01/24 09:00 08/04/24 10:57 100 MLS/HR Azithromycin 250 ml @ 125 mls/hr DAILY IV 08/01/24 10:00 08/04/24 10:57 125 MLS/HR Levetiracetam 750 mg BID PO 08/01/24 10:00 08/04/24 10:56 750 MG Memantine 5 mg Q12HR PO 08/01/24 10:00 08/04/24 10:56 5 MG Clopidogrel Bisulfate 75 mg DAILY PO 08/01/24 10:00 08/04/24 10:55 75 MG Nifedipine 60 mg DAILY PO 08/01/24 10:00 08/04/24 10:56 60 MG Ondansetron HCl 4 mg Q4HP PRN IV 08/01/24 01:45 08/01/24 11:32 4 MG Acetaminophen 650 mg Q6HP PRN PO 08/01/24 01:45 Nitroglycerin 0.4 mg Q5MINP PRN SL 08/01/24 01:45 Morphine Sulfate 2 mg Q30M PRN IV 08/01/24 01:45 Methylprednisolone Sodium Succinate 40 mg BID IV 08/02/24 10:00 08/04/24 10:55 40 MG Guaifenesin/ Dextromethorphan 10 ml Q4HP PRN PO 08/01/24 05:00 Pantoprazole Sodium 40 mg DAILY IV 08/02/24 10:00 08/04/24 10:55 40 MG Sodium Chloride 1,000 ml @ 75 mls/hr [id number] IV 08/02/24 06:00 08/04/24 11:00 75 MLS/HR Carbidopa/Levodopa 0.5 tab TID PO 08/03/24 06:00 08/04/24 14:27 0.5 TAB Metoprolol Tartrate 12.5 mg BID PO 08/03/24 22:00 08/04/24 10:57 12.5 MG laboratory and microbiology Laboratory Tests 08/02/24 06:02 Test 08/02/24 06:02 Range/Units Serum Glucose 119 H 74-106 mg/dL Assessment/Plan Assessment/Plan Acute hypoxic respiratory failure Dependence on supplemental oxygen Community-acquired pneumonia Acute COPD exacerbation Obesity Events: Remains on supplemental oxygen, 2 LPM NC Taper O2 as tolerated Continue bronchodilators IV steroids Continue antibiotics Head CT demonstrated no acute intracranial process. Labs and imaging reviewed. Rest of plan as noted below. Plan: Supplemental oxygen Titrate to keep O2 sats above 92%. CXR reviewed, demonstrates right middle and lower lobe atelectasis. CTA reveals no pulmonary embolism. Right lower lobe partial consolidation, likely atelectasis or pneumonia. Continue bronchodilators. IV steroids Continue antibiotics Incentive spirometry Antiepileptic medication - Keppra On Plavix Monitor renal function. Monitor electrolytes. Supplement as necessary. Monitor ins and outs. Diet and lifestyle modifications for weight reduction Obesity - complicates all care DVT prophylaxis. Plan discussed with: Patient KINGSLEY WILKERSON MD Aug 04, 2024 14:50
--- NOTE | 2024-08-04 16:52 | DVHPN2 ---
Reviewed: Care Plan, H&P, Labs, Medications, Previous Orders, Radiology Changes from previous H/P or p: No Changes General: Per HPI Objective Vitals Vital Signs Date Time Temp Pulse Resp B/P (MAP) Pulse Ox O2 Delivery O2 Flow Rate FiO2 08/04/24 13:00 98.2 73 24 130/59 (82) 96 98.2 08/04/24 09:47 Nasal Cannula 2.0 08/04/24 09:47 28 Intake/Output Intake and Output 08/04/24 07:00 Intake Total 1140 ml Output Total 3500 ml Balance -2360 ml Intake Oral 740 ml IV Total 400 ml Output Urine Total 3500 ml General Appearance: Alert, Cooperative Cardiovascular: Normal S1, Normal S2 Abdomen: Normal bowel sounds, Soft Neuro: Other (garble speech) Psych/Mental Status: Mental status NL Medications Current Medications Medications Dose Ordered Sig/Camelia Route Start Time Stop Time Status Last Admin Dose Admin Ceftriaxone Sodium 50 ml @ 100 mls/hr DAILY@09 IV 08/01/24 09:00 08/04/24 10:57 100 MLS/HR Azithromycin 250 ml @ 125 mls/hr DAILY IV 08/01/24 10:00 08/04/24 10:57 125 MLS/HR Levetiracetam 750 mg BID PO 08/01/24 10:00 08/04/24 10:56 750 MG Memantine 5 mg Q12HR PO 08/01/24 10:00 08/04/24 10:56 5 MG Clopidogrel Bisulfate 75 mg DAILY PO 08/01/24 10:00 08/04/24 10:55 75 MG Nifedipine 60 mg DAILY PO 08/01/24 10:00 08/04/24 10:56 60 MG Ondansetron HCl 4 mg Q4HP PRN IV 08/01/24 01:45 08/01/24 11:32 4 MG Acetaminophen 650 mg Q6HP PRN PO 08/01/24 01:45 Nitroglycerin 0.4 mg Q5MINP PRN SL 08/01/24 01:45 Morphine Sulfate 2 mg Q30M PRN IV 08/01/24 01:45 Methylprednisolone Sodium Succinate 40 mg BID IV 08/02/24 10:00 08/04/24 10:55 40 MG Guaifenesin/ Dextromethorphan 10 ml Q4HP PRN PO 08/01/24 05:00 Pantoprazole Sodium 40 mg DAILY IV 08/02/24 10:00 08/04/24 10:55 40 MG Sodium Chloride 1,000 ml @ 75 mls/hr [id number] IV 08/02/24 06:00 08/04/24 11:00 75 MLS/HR Carbidopa/Levodopa 0.5 tab TID PO 08/03/24 06:00 08/04/24 14:27 0.5 TAB Metoprolol Tartrate 12.5 mg BID PO 08/03/24 22:00 08/04/24 10:57 12.5 MG Laboratory Results Laboratory Tests 08/02/24 06:02 Lipid panel Test 08/03/24 19:56 Cholesterol Level 130 mg/dL (< 200) HDL Cholesterol 23 mg/dL (40-59) L Triglycerides Level 159 mg/dL (< 150) H HgA1c, TSH Test 08/03/24 19:56 Thyroid Stimulating Hormone (TSH) 0.66 uIU/mL (0.55-4.78) Urinalysis Test 08/01/24 01:50 Urine Color Light-yellow (Yellow) Urine Clarity Turbid (Clear) H Urine pH 5.5 (5.0-9.0) Urine Specific [place] 1.023 (1.001-1.035) Urine Protein 1+ (Negative) H Urine Ketones Trace (Negative) Urine Blood 3+ /uL (Negative) H Urine Nitrite Negative (Negative) Urine Bilirubin Negative (Negative) Urine Urobilinogen Normal mg/dL (Negative) Urine Leukocyte Esterase Negative /uL (Negative) Urine RBC 361 /hpf (0 - 3) Urine Microscopic WBC 8 /HPF (0-3) H Urine Squamous Epithelial Cells Few /hpf (<5) Urine Bacteria Few /hpf (None Seen) H Urine Mucus Few (None Seen) Urine Glucose Normal mg/dL (Normal) Microbiology Microbiology Date/Time Source Procedure Growth Status 08/01/24 00:41 Blood Blood Culture - Preliminary NO GROWTH AFTER 72 HOURS OF INCUBATION. Resulted Labs and/or images reviewed: Labs reviewed by me, Image(s) reviewed by me Assessment/Plan Assessment/Plan 68-year-old male presents for evaluation of shortness for breath. Patient is a poor historian. Per ED records and personnel patient presents with shortness for breath has been ongoing for the past two days. He has also been having a productive cough with mild blood-tinged. Denies chest pain or palpitations. No other acute complaints reported. Community-acquired pneumonia Acute hypoxic respiratory failure COPD exacerbation weakness difficulty walking obesity hematemesis sepsis with Gram pos/Gram neg pna PVC/arrhythmia 08/02/2024: pending evaluation by cardiology continue with Abx for pna GI consult as appropriate 08/03/2024: GI to evaluate for hematemesis continue with empirical IV ABx cardiology consulted Plan discussed with: Patient Date of Service: Aug 03, 2024 Billing Provider: JOHN VENTURA DO Common Visit Codes: [id number] INP/OBS CARE(HIGH) JOHN VENTURA DO Aug 04, 2024 16:52
--- NOTE | 2024-08-04 16:54 | DVHPN2 ---
Reviewed: Care Plan, H&P, Labs, Medications, Previous Orders, Radiology Changes from previous H/P or p: No Changes General: Per HPI Objective Vitals Vital Signs Date Time Temp Pulse Resp B/P (MAP) Pulse Ox O2 Delivery O2 Flow Rate FiO2 08/04/24 13:00 98.2 73 24 130/59 (82) 96 98.2 08/04/24 09:47 Nasal Cannula 2.0 08/04/24 09:47 28 Intake/Output Intake and Output 08/04/24 07:00 Intake Total 1140 ml Output Total 3500 ml Balance -2360 ml Intake Oral 740 ml IV Total 400 ml Output Urine Total 3500 ml General Appearance: Alert, Cooperative Cardiovascular: Normal S1, Normal S2 Abdomen: Normal bowel sounds, Soft Neuro: Other (garble speech) Psych/Mental Status: Mental status NL Medications Current Medications Medications Dose Ordered Sig/Camelia Route Start Time Stop Time Status Last Admin Dose Admin Ceftriaxone Sodium 50 ml @ 100 mls/hr DAILY@09 IV 08/01/24 09:00 08/04/24 10:57 100 MLS/HR Azithromycin 250 ml @ 125 mls/hr DAILY IV 08/01/24 10:00 08/04/24 10:57 125 MLS/HR Levetiracetam 750 mg BID PO 08/01/24 10:00 08/04/24 10:56 750 MG Memantine 5 mg Q12HR PO 08/01/24 10:00 08/04/24 10:56 5 MG Clopidogrel Bisulfate 75 mg DAILY PO 08/01/24 10:00 08/04/24 10:55 75 MG Nifedipine 60 mg DAILY PO 08/01/24 10:00 08/04/24 10:56 60 MG Ondansetron HCl 4 mg Q4HP PRN IV 08/01/24 01:45 08/01/24 11:32 4 MG Acetaminophen 650 mg Q6HP PRN PO 08/01/24 01:45 Nitroglycerin 0.4 mg Q5MINP PRN SL 08/01/24 01:45 Morphine Sulfate 2 mg Q30M PRN IV 08/01/24 01:45 Methylprednisolone Sodium Succinate 40 mg BID IV 08/02/24 10:00 08/04/24 10:55 40 MG Guaifenesin/ Dextromethorphan 10 ml Q4HP PRN PO 08/01/24 05:00 Pantoprazole Sodium 40 mg DAILY IV 08/02/24 10:00 08/04/24 10:55 40 MG Sodium Chloride 1,000 ml @ 75 mls/hr [id number] IV 08/02/24 06:00 08/04/24 11:00 75 MLS/HR Carbidopa/Levodopa 0.5 tab TID PO 08/03/24 06:00 08/04/24 14:27 0.5 TAB Metoprolol Tartrate 12.5 mg BID PO 08/03/24 22:00 08/04/24 10:57 12.5 MG Laboratory Results Laboratory Tests 08/02/24 06:02 Lipid panel Test 08/03/24 19:56 Cholesterol Level 130 mg/dL (< 200) HDL Cholesterol 23 mg/dL (40-59) L Triglycerides Level 159 mg/dL (< 150) H HgA1c, TSH Test 08/03/24 19:56 Thyroid Stimulating Hormone (TSH) 0.66 uIU/mL (0.55-4.78) Urinalysis Test 08/01/24 01:50 Urine Color Light-yellow (Yellow) Urine Clarity Turbid (Clear) H Urine pH 5.5 (5.0-9.0) Urine Specific [place] 1.023 (1.001-1.035) Urine Protein 1+ (Negative) H Urine Ketones Trace (Negative) Urine Blood 3+ /uL (Negative) H Urine Nitrite Negative (Negative) Urine Bilirubin Negative (Negative) Urine Urobilinogen Normal mg/dL (Negative) Urine Leukocyte Esterase Negative /uL (Negative) Urine RBC 361 /hpf (0 - 3) Urine Microscopic WBC 8 /HPF (0-3) H Urine Squamous Epithelial Cells Few /hpf (<5) Urine Bacteria Few /hpf (None Seen) H Urine Mucus Few (None Seen) Urine Glucose Normal mg/dL (Normal) Microbiology Microbiology Date/Time Source Procedure Growth Status 08/01/24 00:41 Blood Blood Culture - Preliminary NO GROWTH AFTER 72 HOURS OF INCUBATION. Resulted Assessment/Plan Assessment/Plan 68-year-old male presents for evaluation of shortness for breath. Patient is a poor historian. Per ED records and personnel patient presents with shortness for breath has been ongoing for the past two days. He has also been having a productive cough with mild blood-tinged. Denies chest pain or palpitations. No other acute complaints reported. Community-acquired pneumonia Acute hypoxic respiratory failure COPD exacerbation weakness difficulty walking obesity hematemesis sepsis with Gram pos/Gram neg pna PVC/arrhythmia 08/02/2024: pending evaluation by cardiology continue with Abx for pna GI consult as appropriate 08/03/2024: GI to evaluate for hematemesis continue with empirical IV ABx cardiology consulted 08/04/2024: reported to have more PVC started on amiodarone drip if needed transfer to [facility] if necessary continue with IV Abx Plan discussed with: Patient Date of Service: Aug 04, 2024 Billing Provider: JOHN VENTURA DO Common Visit Codes: [id number] INP/OBS CARE(HIGH) JOHN VENTURA DO Aug 04, 2024 16:53
[2024-08-04] MEDS: AMIODARONE BOLUS KIT 100 ML IV ONE (17:23)
[2024-08-04] MEDS: AMIODARONE 360mg/200mL PREMIX 200 ML IV ONE (17:37)
[2024-08-04 18:47] LABS: Platelet Count (auto) 284 10^3/uL (140-450); Red Cell Distribution Width 15.1 % (11.8-14.3)
[2024-08-04 18:49] LABS: Hematocrit 21.6 % (41.0-53.0); Mean Corpuscular Hemoglobin 27.8 pg (28.0-32.0); Mean Corpuscular Hgb Conc. 32.7 g/dL (32.0-36.0); Mean Corpuscular Volume 85.1 fL (80.0-100.0); Red Blood Cells 2.54 10^6/uL (4.5-5.90)
[2024-08-04 18:56] LABS: Band Neutrophils % (manual) 0; Basophils % (manual) 0 (0.0-2.0); Blast Cells 0; Eosinophils % (manual) 0 (0-7); Metamyelocytes % 0; Myelocytes % 0; Promyelocytes % 0; Reactive Lymphocytes 0
[2024-08-04 18:57] LABS: Chloride 106 mmol/L (98-107); Sodium 139 mmol/L (136-145)
[2024-08-04 18:58] LABS: Anion Gap 8 (5-15); Carbon Dioxide 25 mmol/L (20-31)
[2024-08-04 18:59] LABS: Calcium 9.4 mg/dL (8.7-10.4)
[2024-08-04 19:03] LABS: BUN/Creatinine Ratio 22.1 (10.0-20.0)
[2024-08-04 19:08] LABS: Blood Urea Nitrogen 25 mg/dL (9-23); Glucose 152 mg/dL (74-106)
[2024-08-04 19:36] LABS: Lymphocytes % (manual) 8 (10.0-50.0); Monocytes % (manual) 6 (0-12); Platelet Estimate Adequate
--- NOTE | 2024-08-04 20:17 | DVHPN2 ---
Progress Note - Dictate Date Seen: Aug 04, 2024 Medical Necessity Reason Pt with a Central, PICC or Fol: Yes The following are medically ne: Tate Catheter Reason for tate catheter: Strict I&O Subjective Patient was seen and evaluated in follow up. Patient is wake and alert today. The patient underwent EGD yesterday which showed a 0.5-1 cm sliding-type hiatal hernia with no significant erosive esophagitis. Minimal antral gastritis otherwise normal examination up to the 2nd and 3rd part of the duodenum. Patient having PVCs, recommended to start Amiodarone drip. HGB 7, HCT 21.6, WBC 12, BUN 25, HDL 23, Trig 159. Telemetry reviewed. vital signs Vital Sign Date Time Temp Pulse Resp B/P (MAP) Pulse Ox O2 Delivery O2 Flow Rate FiO2 08/04/24 10:57 63 124/73 08/04/24 09:00 98.2 21 97 98.2 08/04/24 02:24 2.0 32 08/03/24 20:00 Nasal Cannula* Total Intake and Output 08/03/24 08/03/24 08/04/24 15:00 23:00 07:00 Intake Total 400 ml 40 ml 700 ml Output Total 1800 ml 1700 ml Balance 400 ml -1760 ml -1000 ml medications Current Medications Medications Dose Ordered Sig/Camelia Route Start Time Stop Time Status Last Admin Dose Admin Ceftriaxone Sodium 50 ml @ 100 mls/hr DAILY@09 IV 08/01/24 09:00 08/04/24 10:57 100 MLS/HR Azithromycin 250 ml @ 125 mls/hr DAILY IV 08/01/24 10:00 08/04/24 10:57 125 MLS/HR Levetiracetam 750 mg BID PO 08/01/24 10:00 08/04/24 10:56 750 MG Memantine 5 mg Q12HR PO 08/01/24 10:00 08/04/24 10:56 5 MG Clopidogrel Bisulfate 75 mg DAILY PO 08/01/24 10:00 08/04/24 10:55 75 MG Nifedipine 60 mg DAILY PO 08/01/24 10:00 08/04/24 10:56 60 MG Ondansetron HCl 4 mg Q4HP PRN IV 08/01/24 01:45 08/01/24 11:32 4 MG Acetaminophen 650 mg Q6HP PRN PO 08/01/24 01:45 Nitroglycerin 0.4 mg Q5MINP PRN SL 08/01/24 01:45 Morphine Sulfate 2 mg Q30M PRN IV 08/01/24 01:45 Methylprednisolone Sodium Succinate 40 mg BID IV 08/02/24 10:00 08/04/24 10:55 40 MG Guaifenesin/ Dextromethorphan 10 ml Q4HP PRN PO 08/01/24 05:00 Pantoprazole Sodium 40 mg DAILY IV 08/02/24 10:00 08/04/24 10:55 40 MG Sodium Chloride 1,000 ml @ 75 mls/hr [id number] IV 08/02/24 06:00 08/04/24 11:00 75 MLS/HR Carbidopa/Levodopa 0.5 tab TID PO 08/03/24 06:00 08/03/24 22:16 0.5 TAB Metoprolol Tartrate 12.5 mg BID PO 08/03/24 22:00 08/04/24 10:57 12.5 MG objective GENERAL: Awake, alert, oriented. LUNGS: Decreased breath sounds. CARDIOVASCULAR: Heart sounds are good. ABDOMEN: Soft. laboratory and microbiology Laboratory Tests 08/02/24 06:02 Test 08/02/24 06:02 Range/Units Serum Glucose 119 H 74-106 mg/dL Problem List Community-acquired pneumonia. Acute hypoxic respiratory failure. COPD exacerbation. Obesity. Tachycardia. Assessment/Plan Continued all current supportive medical care. IV Amiodarone. IV antibiotics as ordered. Sinemet. Metoprolol, Plavix. Morphine for pain management. GI prophylactics. Additional plan as per the hospital course. Plan discussed with: Patient SIGIFREDO ISBELL MD Aug 04, 2024 12:13
--- NOTE | 2024-08-04 21:12 | DVHPN2 ---
Progress Note - Dictate Date Seen: Aug 04, 2024 Medical Necessity Reason Pt with a Central, PICC or Fol: Yes The following are medically ne: Tate Catheter Reason for tate catheter: Strict I&O Subjective Mr. Jane is a 68 years old right-handed gentleman with a history of hypertension, COPD, rhabdomyolysis, status post craniotomy, he was brought to the [facility] on 07/31/2024 with a chief company of shortness breath x1 day. I have seen and examined the patient along with his nurse, he was voice still very slurry and hard to understand, he looks fine, he is oriented person, place, he knows year and the month No change in the tremor and muscle rigidity in the right hand He was to receive blood transfusion for unstable H/H Stool occult blood, 08/02/2024: positive Urinalysis, 08/01/2024: WBC: 8, urine leukocyte esterase: Negative WBC/HB/PLT/MCV, 08/02/2024: 12.1/8.4/337/85 BUN/CR, 08/01/2024: 39/1, 08/02/2024: 55/1.28, Lactic acid, 08/01/24: 2.2 Liver function tests, 08/02/2024: Unremarkable Vitamin B12, 08/03/2024: 131 TSH, 07/2019 5:0.66 FT four, 08/03/2019 5:1.09 CT head, 08/02/2024: 1. No acute intracranial process. 2. Postsurgical changes in the left frontal lobe is described above vital signs Vital Sign Date Time Temp Pulse Resp B/P (MAP) Pulse Ox O2 Delivery O2 Flow Rate FiO2 08/04/24 20:00 Nasal Cannula* 2 28 08/04/24 17:00 97.2 80 21 127/80 (96 94 97.2 Total Intake and Output 08/03/24 08/03/24 08/04/24 15:00 23:00 07:00 Intake Total 400 ml 40 ml 700 ml Output Total 1800 ml 1700 ml Balance 400 ml -1760 ml -1000 ml medications Current Medications Medications Dose Ordered Sig/Camelia Route Start Time Stop Time Status Last Admin Dose Admin Ceftriaxone Sodium 50 ml @ 100 mls/hr DAILY@09 IV 08/01/24 09:00 08/04/24 10:57 100 MLS/HR Azithromycin 250 ml @ 125 mls/hr DAILY IV 08/01/24 10:00 08/04/24 10:57 125 MLS/HR Levetiracetam 750 mg BID PO 08/01/24 10:00 08/04/24 10:56 750 MG Memantine 5 mg Q12HR PO 08/01/24 10:00 08/04/24 10:56 5 MG Clopidogrel Bisulfate 75 mg DAILY PO 08/01/24 10:00 08/04/24 10:55 75 MG Nifedipine 60 mg DAILY PO 08/01/24 10:00 08/04/24 10:56 60 MG Ondansetron HCl 4 mg Q4HP PRN IV 08/01/24 01:45 08/01/24 11:32 4 MG Acetaminophen 650 mg Q6HP PRN PO 08/01/24 01:45 Nitroglycerin 0.4 mg Q5MINP PRN SL 08/01/24 01:45 Morphine Sulfate 2 mg Q30M PRN IV 08/01/24 01:45 Methylprednisolone Sodium Succinate 40 mg BID IV 08/02/24 10:00 08/04/24 10:55 40 MG Guaifenesin/ Dextromethorphan 10 ml Q4HP PRN PO 08/01/24 05:00 Pantoprazole Sodium 40 mg DAILY IV 08/02/24 10:00 08/04/24 10:55 40 MG Sodium Chloride 1,000 ml @ 75 mls/hr [id number] IV 08/02/24 06:00 08/04/24 11:00 75 MLS/HR Carbidopa/Levodopa 0.5 tab TID PO 08/03/24 06:00 08/04/24 14:27 0.5 TAB Metoprolol Tartrate 12.5 mg BID PO 08/03/24 22:00 08/04/24 10:57 12.5 MG objective General: the patient is well developed and nourished. No acute distress. MENTAL STATUS: Awake and alert. Oriented to person, place, he knows year and the month SPEECH, LANGUAGE, HIGHER CORTICAL FUNCTION: no aphasia but he was moderate dysarthria, soft voice CRANIAL NERVES: Pupils are equal, round and reactive. EOMs full and conjugate. Facial sensation intact in all three divisions bilaterally. Mandibular strength intact. Facial muscles symmetrical and strength intact. He was diminished facial expression and blinking SENSATION: Sensation to touch and pinprick is fine MOTOR: Resting tremor in the right hand, cogwheeling in the left wrist. Atrophy in bilateral intrinsic hand muscle. Muscle strength of the major groups in the upper extremities is 4/5. Muscle strength of the major groups in the lower extremities is 2/5. REFLEXES: Deep tendon reflexes normal and symmetrical. No pathological reflexes. CEREBELLAR/COORDINATION: Mild intentional tremor noticed in the right-handed GAIT/STATION: deferred. 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 Chronic organic brain injury Parkinson's disease ? Cognitive dysfunction, ? Alzheimer disease, ? Secondary to chronic brain injury On Keppra, ? Seizure disorder Respiratory failure/COPD exacerbation Pneumonia Assessment/Plan Monitoring Supportive treatment Telemetry EEG Keppra 750 mg b.i.d. Memantine 5 mg b.i.d. Increase the Sinemet 25/100 mg t.i.d. considered to increase IV antibiotics Pulmonary on case GI on case,/colonoscopy More recommendation per clinical course This medical document was created using an electronic medical record system with [employer] computerized dictation system. Although this document has been carefully reviewed, there may still be some phonetic and typographical errors. These areas are purely typographical due to imperfections of the software programs, and do not reflect any compromise in the patient's medical care Prognosis poor Dietary Evaluation Review Comments: 1) Advance to 2g Na diet when medically feasible, pending FILENET DEVELOPER approval 2) Refer to outpatient RD for weight management 3) F/u with turpentine distiller and front tender Expected Outcomes/Goals: 1) appetite and labs to improve 2) diet to advance 3) f/u in 3-5 days Plan discussed with: Other KD GRIMALDO MD Aug 04, 2024 21:12
--- NOTE | 2024-08-04 21:30 | DVHEEG2 ---
Neurology EEG Procedural Note Procedural Note EXAM DATE: 08/04/2024 REFERRING DOCTOR: Dr. Grimaldo TECHNIQUE: Eighteen channels of EEG, 2 channels of EOG, and 1 channel of EKG were recorded using the International 10/20 system. CLINICAL DATA: The patient was referred for an EEG evaluation for the evidence of seizure disorder. MEDICATIONS: See chart BACKGROUND ACTIVITY: While the patient was awake, the background activity consisted of poorly regulated 5-6 Hz rhythmic waveforms, symmetrically distributed over both posterior quadrants and was reactive to external stimuli, intermixed with this was diffuse low amplitude theta activity ACTIVATION: Hyperventilation: Not done Photic Stimulation: Not done Sleep: Not seen IMPRESSION: This is a mildly abnormal EEG, this EEG seen in mild cerebral dysfunction due to metabolic/hypoxic encephalopathy or medication effects, please correlate clinically. The EKG channel showed an irregular heart rate of 78/min, at times, the heart rate increased to 133 per minute [place] [address] KD GRIMALDO MD Aug 04, 2024 21:30
[2024-08-04] MEDS: CARBIDOPA W LEVODOPA 25/250mg TABLET PO SCH (22:00)
[2024-08-04] MEDS: AMIODARONE 360mg/200mL PREMIX 200 ML IV SCH (23:19)
[2024-08-05] VITALS (10 sets, daily range): BP systolic 124–154; BP diastolic 75–88; PULSE 59–87; RESP 18–23; TEMP 97.9–99; O2SAT 96–98
[2024-08-05 06:30] LABS: Hematocrit 26.4 % (41.0-53.0); Hemoglobin 8.7 g/dL (13.5-17.5); Mean Corpuscular Hemoglobin 28.3 pg (28.0-32.0); Mean Corpuscular Volume 85.8 fL (80.0-100.0); Platelet Count (auto) 303 10^3/uL (140-450); Red Blood Cells 3.08 10^6/uL (4.5-5.90); Red Cell Distribution Width 15.1 % (11.8-14.3); White Blood Cell 11.6 10^3/uL (4.4-10.8)
[2024-08-05 06:36] LABS: Anion Gap 10 (5-15); Carbon Dioxide 24 mmol/L (20-31); Chloride 105 mmol/L (98-107); Potassium 4.1 mmol/L (3.5-5.1); Sodium 139 mmol/L (136-145)
[2024-08-05 06:38] LABS: Calcium 9.3 mg/dL (8.7-10.4)
[2024-08-05 06:42] LABS: BUN/Creatinine Ratio 15.4 (10.0-20.0)
[2024-08-05 06:48] LABS: Blood Urea Nitrogen 23 mg/dL (9-23); Glucose 132 mg/dL (74-106)
[2024-08-05 06:50] LABS: Basophils % (manual) 0 (0.0-2.0); Blast Cells 0; Eosinophils % (manual) 0 (0-7); Metamyelocytes % 0; Myelocytes % 0; Promyelocytes % 0; Reactive Lymphocytes 0
[2024-08-05 08:42] LABS: Band Neutrophils % (manual) 7; Lymphocytes % (manual) 11 (10.0-50.0); Monocytes % (manual) 6 (0-12); Platelet Estimate Adequate
--- NOTE | 2024-08-05 12:26 | DVHPN2 ---
Progress Note - Dictate Date Seen: Aug 05, 2024 Medical Necessity Reason Pt with a Central, PICC or Fol: Yes The following are medically ne: Tate Catheter Reason for tate catheter: Strict I&O vital signs Vital Sign Date Time Temp Pulse Resp B/P (MAP) Pulse Ox O2 Delivery O2 Flow Rate FiO2 08/05/24 10:00 97 Nasal Cannula 2.0 08/05/24 10:00 28 08/05/24 09:49 58 138/75 08/05/24 08:44 97.9 18 97.9 Total Intake and Output 08/04/24 08/04/24 08/05/24 15:00 23:00 07:00 Intake Total 600 ml 1196.5 ml 1575 ml Output Total 1500 ml Balance 600 ml -303.5 ml 1575 ml medications Current Medications Medications Dose Ordered Sig/Camelia Route Start Time Stop Time Status Last Admin Dose Admin Ceftriaxone Sodium 50 ml @ 100 mls/hr DAILY@09 IV 08/01/24 09:00 08/05/24 08:26 100 MLS/HR Azithromycin 250 ml @ 125 mls/hr DAILY IV 08/01/24 10:00 08/05/24 11:20 125 MLS/HR Levetiracetam 750 mg BID PO 08/01/24 10:00 08/05/24 08:46 750 MG Memantine 5 mg Q12HR PO 08/01/24 10:00 08/05/24 08:51 5 MG Clopidogrel Bisulfate 75 mg DAILY PO 08/01/24 10:00 08/04/24 10:55 75 MG Nifedipine 60 mg DAILY PO 08/01/24 10:00 08/05/24 08:47 60 MG Ondansetron HCl 4 mg Q4HP PRN IV 08/01/24 01:45 08/01/24 11:32 4 MG Acetaminophen 650 mg Q6HP PRN PO 08/01/24 01:45 Nitroglycerin 0.4 mg Q5MINP PRN SL 08/01/24 01:45 Morphine Sulfate 2 mg Q30M PRN IV 08/01/24 01:45 Methylprednisolone Sodium Succinate 40 mg BID IV 08/02/24 10:00 08/05/24 08:39 40 MG Guaifenesin/ Dextromethorphan 10 ml Q4HP PRN PO 08/01/24 05:00 Pantoprazole Sodium 40 mg DAILY IV 08/02/24 10:00 08/05/24 08:35 40 MG Sodium Chloride 1,000 ml @ 75 mls/hr [id number] IV 08/02/24 06:00 08/05/24 00:46 75 MLS/HR Metoprolol Tartrate 12.5 mg BID PO 08/03/24 22:00 08/05/24 08:49 12.5 MG Carbidopa/Levodopa 1 tab TID PO 08/04/24 21:15 08/05/24 06:10 1 TAB laboratory and microbiology Laboratory Tests 08/05/24 05:10 Test 08/05/24 05:10 Range/Units Serum Glucose 132 H 74-106 mg/dL Assessment/Plan Assessment/Plan Acute hypoxic respiratory failure Dependence on supplemental oxygen Community-acquired pneumonia Acute COPD exacerbation Obesity Events: Remains on supplemental oxygen, 2 LPM NC Taper O2 as tolerated Continue bronchodilators IV steroids Continue antibiotics Head CT demonstrated no acute intracranial process. Labs and imaging reviewed. Rest of plan as noted below. Plan: Supplemental oxygen Titrate to keep O2 sats above 92%. CXR reviewed, demonstrates right middle and lower lobe atelectasis. CTA reveals no pulmonary embolism. Right lower lobe partial consolidation, likely atelectasis or pneumonia. Continue bronchodilators. IV steroids Continue antibiotics Incentive spirometry Antiepileptic medication - Keppra On Plavix Monitor renal function. Monitor electrolytes. Supplement as necessary. Monitor ins and outs. Diet and lifestyle modifications for weight reduction Obesity - complicates all care DVT prophylaxis. Dietary Evaluation Review Comments: 1) Advance to 2g Na diet when medically feasible, pending BILL OF LADING CLERK approval 2) Refer to outpatient RD for weight management 3) F/u with dialysis biomed technician and cloth winder machine operator Expected Outcomes/Goals: 1) appetite and labs to improve 2) diet to advance 3) f/u in 3-5 days Plan discussed with: Patient KINGSLEY WILKERSON MD Aug 05, 2024 12:26
[2024-08-05] MEDS ORDERED: NIFE1TAB31 PO (14:12)
[2024-08-05] MEDS ORDERED: KEP500T PO (14:12)
[2024-08-05] MEDS ORDERED: MET25T PO (14:12)
--- NOTE | 2024-08-05 14:13 | DVHDS2 ---
Discharge Summary Date of Admission Aug 01, 2024 at 01:37 Date of Discharge: Aug 05, 2024 Labs/Diagnostic Data: Laboratory Results Test 08/05/24 05:10 08/03/24 19:56 08/02/24 06:02 08/02/24 06:00 White Blood Count 11.6 10^3/uL (4.4-10.8) Red Blood Count 3.08 10^6/uL (4.5-5.90) Hemoglobin 8.7 g/dL (13.5-17.5) Hematocrit 26.4 % (41.0-53.0) Mean Corpuscular Volume 85.8 fL (80.0-100.0) Mean Corpuscular Hemoglobin 28.3 pg (28.0-32.0) Mean Corpuscular Hemoglobin Concent 33.0 g/dL (32.0-36.0) Red Cell Distribution Width 15.1 % (11.8-14.3) Platelet Count 303 10^3/uL (140-450) Mean Platelet Volume 9.6 fL (6.9-10.8) Neutrophils (%) (Auto) % (37.0-80.0) Lymphocytes (%) (Auto) % (10.0-50.0) Monocytes (%) (Auto) % (0.0-12.0) Basophils (%) (Auto) % (0.0-2.0) Neutrophils # (Auto) 10 ^3/uL (1.6-8.6) Lymphocytes # (Auto) 10 ^3/uL (0.4-5.4) Monocytes # (Auto) 10 ^3/uL (0-1.3) Differential Total Cells Counted 100.0 (100) Neutrophils % (Manual) 76 (37.0-80.0) Band Neutrophils % (Manual) 7 Lymphocytes % (Manual) 11 (10.0-50.0) Monocytes % (Manual) 6 (0-12) Eosinophils % (Manual) 0 (0-7) Basophils % (Manual) 0 (0.0-2.0) Metamyelocytes % (manual) 0 Myelocytes % (Manual) 0 Promyelocytes % (Manual) 0 Blast Cells % (Manual) 0 Reactive Lymphocytes 0 Platelet Estimate Adequate Sodium Level 139 mmol/L (136-145) Potassium Level 4.1 mmol/L (3.5-5.1) Chloride Level 105 mmol/L (98-107) Carbon Dioxide Level 24 mmol/L (20-31) Anion Gap 10 (5-15) Blood Urea Nitrogen 23 mg/dL (9-23) Creatinine 1.49 mg/dL (0.700-1.30) Glomerular Filtration Rate Calc 51 mL/min (>90) BUN/Creatinine Ratio 15.4 (10.0-20.0) Serum Glucose 132 mg/dL (74-106) Calcium Level 9.3 mg/dL (8.7-10.4) Triglycerides Level 159 mg/dL (< 150) Cholesterol Level 130 mg/dL (< 200) LDL Cholesterol 85 mg/dL (< 100) HDL Cholesterol 23 mg/dL (40-59) Vitamin B12 Level 331 pg/mL (211-911) Thyroid Stimulating Hormone (TSH) 0.66 uIU/mL (0.55-4.78) Free Thyroxine (T4) Calculated 1.09 ng/dL (0.89-1.76) Eosinophils (%) (Auto) 0.1 % (0.0-7.0) Eosinophils # (Auto) 0 10 ^3/uL (0-0.8) Basophils # (Auto) 0.1 10 ^3/uL (0-0.2) Nucleated Red Blood Cells 0.1 % Prothrombin Time 11.5 sec (9.3-11.8) Prothrombin Time INR 1.09 (0.9-1.15) Total Bilirubin 0.4 mg/dL (0.2-1.0) Aspartate Amino Transferase (AST) 8 U/L (13-40) Alanine Aminotransferase (ALT) 18 U/L (7-40) Alkaline Phosphatase 37 U/L (46-116) Total Protein 6.2 g/dL (5.7-8.2) Albumin 4.0 g/dL (3.2-4.8) Stool Occult Blood Positive (Negative) Stool Occult Blood Sample #3 (Negative) Test 08/01/24 02:50 08/01/24 02:11 08/01/24 01:50 08/01/24 00:44 Lactic Acid Level 1.9 mmol/L (0.4-2.0) Troponin I High Sensitivity 24 ng/L (</=54) Urine Color Light-yellow (Yellow) Urine Clarity Turbid (Clear) Urine pH 5.5 (5.0-9.0) Urine Specific [place] 1.023 (1.001-1.035) Urine Protein 1+ (Negative) Urine Ketones Trace (Negative) Urine Blood 3+ /uL (Negative) Urine Nitrite Negative (Negative) Urine Bilirubin Negative (Negative) Urine Urobilinogen Normal mg/dL (Negative) Urine Leukocyte Esterase Negative /uL (Negative) Urine RBC 361 /hpf (0 - 3) Urine Microscopic WBC 8 /HPF (0-3) Urine Squamous Epithelial Cells Few /hpf (<5) Urine Bacteria Few /hpf (None Seen) Urine Mucus Few (None Seen) Urine Glucose Normal mg/dL (Normal) Influenza Type A Antigen Negative (Negative) Influenza Type B Antigen Negative (Negative) SARS-CoV-2 Antigen (Rapid) Negative (NEGATIVE) Test 08/01/24 00:41 D-Dimer, Quantitative 0.85 mg/L FEU (0.0-0.49) B-Type Natriuretic Peptide 27.44 pg/mL (0-100) Other Laboratory Tests 08/05/24 05:10 Brief Hx & Hospital Course: 8-year-old male presents for evaluation of shortness for breath. Patient is a poor historian. Per ED records and personnel patient presents with shortness for breath has been ongoing for the past two days. He has also been having a productive cough with mild blood-tinged. Denies chest pain or palpitations. No other acute complaints reported. Community-acquired pneumonia Acute hypoxic respiratory failure COPD exacerbation weakness difficulty walking obesity hematemesis sepsis with Gram pos/Gram neg pna PVC/arrhythmia 08/02/2024: pending evaluation by cardiology continue with Abx for pna GI consult as appropriate 08/03/2024: GI to evaluate for hematemesis continue with empirical IV ABx cardiology consulted 08/04/2024: reported to have more PVC started on amiodarone drip if needed transfer to [facility] if necessary continue with IV Abx 08/05/2024 stable, discharge to SNF Condition at Discharge: Fair Final Diagnosis/Problems List see above Discharge Disposition: Alf Facility Discharge Instruct/Medications Diet: Cardiac 2g Na,low cholest Activity: No Restrictions, As Tolerated Discharge Statement: "Patient was advised to return to the ER or call 911 if any headaches, dizziness, shortness of breath, chest pain, abdominal pain, bleeding, fevers, or worsening of medical condition. Patient was counseled about treatment plan, medications, possible side effects, patientverbalized understanding. All questions were answered to the best of my ability. This discharge took greater then 30 minutes in planning, reviewing documentation, counseling the patient, and discussing with other team members." ASSESSMENT ASSESSMENT Assessment Date of Service: Aug 05, 2024 Billing Provider: JOHN VENTURA DO Common Visit Codes: [id number] DISCH DAY >30min JOHN VENTURA DO Aug 05, 2024 14:13
--- NOTE | 2024-08-05 15:49 | DVHPN2 ---
Progress Note Date Seen: Aug 05, 2024 Resident Creating Document: CARLOTTA GARCIA RESIDENT Medical Necessity Reason Pt with a Central, PICC or Fol: Yes The following are medically ne: Tate Catheter Reason for tate catheter: Strict I&O Subjective Review of Systems Patient seen and examined at bedside. No new complaints. Patient underwent EGD two days ago. Showed hiatal hernia, mild antral gastritis, likely hemoptysis related to pneumonia not active GI bleed. Objective vital signs Vital Sign Date Time Temp Pulse Resp B/P (MAP) Pulse Ox O2 Delivery O2 Flow Rate FiO2 08/05/24 13:16 98.5 60 18 150/79 (102) 97 98.5 08/05/24 10:00 Nasal Cannula 2.0 08/05/24 10:00 28 Total Intake and Output 08/04/24 08/04/24 08/05/24 15:00 23:00 07:00 Intake Total 600 ml 1196.5 ml 1575 ml Output Total 1500 ml Balance 600 ml -303.5 ml 1575 ml medications Current Medications Medications Dose Ordered Sig/Camelia Route Start Time Stop Time Status Last Admin Dose Admin Ceftriaxone Sodium 50 ml @ 100 mls/hr DAILY@09 IV 08/01/24 09:00 08/05/24 08:26 100 MLS/HR Azithromycin 250 ml @ 125 mls/hr DAILY IV 08/01/24 10:00 08/05/24 11:20 125 MLS/HR Levetiracetam 750 mg BID PO 08/01/24 10:00 08/05/24 08:46 750 MG Memantine 5 mg Q12HR PO 08/01/24 10:00 08/05/24 08:51 5 MG Clopidogrel Bisulfate 75 mg DAILY PO 08/01/24 10:00 08/04/24 10:55 75 MG Nifedipine 60 mg DAILY PO 08/01/24 10:00 08/05/24 08:47 60 MG Ondansetron HCl 4 mg Q4HP PRN IV 08/01/24 01:45 08/01/24 11:32 4 MG Acetaminophen 650 mg Q6HP PRN PO 08/01/24 01:45 Nitroglycerin 0.4 mg Q5MINP PRN SL 08/01/24 01:45 Morphine Sulfate 2 mg Q30M PRN IV 08/01/24 01:45 Methylprednisolone Sodium Succinate 40 mg BID IV 08/02/24 10:00 08/05/24 08:39 40 MG Guaifenesin/ Dextromethorphan 10 ml Q4HP PRN PO 08/01/24 05:00 Pantoprazole Sodium 40 mg DAILY IV 08/02/24 10:00 08/05/24 08:35 40 MG Sodium Chloride 1,000 ml @ 75 mls/hr [id number] IV 08/02/24 06:00 08/05/24 00:46 75 MLS/HR Metoprolol Tartrate 12.5 mg BID PO 08/03/24 22:00 08/05/24 08:49 12.5 MG Carbidopa/Levodopa 1 tab TID PO 08/04/24 21:15 08/05/24 06:10 1 TAB Examination General Appearance: Cooperative. Well developed. Well nourished. NAD Head Exam: Normal inspection Neck Exam: Normal inspection. Non-tender. Normal alignment Pulmonary/Respiratory: Chest non-tender. Clear bilateral breath sounds Cardiovascular/Chest: Regular rate and rhythm. No murmurs. No JVD. Peripheral Pulses: 2+ Radial (R). 2+ Radial (L). 2+ Pedal (R). 2+ Pedal (L) Abdominal Exam: Normal bowel sounds. Soft. Nontender. No hepatospenomegaly. No masses Ankle Exam: Negative ankle edema Lower extremities: Negative lower extremity edema Neuro/Mental Status: A&O x4. Coherent Thoughts/Psych: Normal thought pattern. Appropriate mood and affect. Good judgement and insight Appearance: In no acute distress Skin Exam: Normal inspection. Normal color. Warm. Dry laboratory and microbiology Laboratory Tests 08/05/24 05:10 Test 08/05/24 05:10 Range/Units Serum Glucose 132 H 74-106 mg/dL Microbiology Date/Time Source Procedure Growth Status 08/01/24 00:41 Blood Blood Culture - Preliminary NO GROWTH AFTER 72 HOURS OF INCUBATION. Resulted Problem List/Assessment/Plan Problem List/Assessment/Plan Hemoptysis likely related to pneumonia Ruled out upper GI bleeding Acute hypoxic respiratory failure Pneumonia History of hypertension History of seizure Possible Parkinson's disease Possible dementia EGD on 08/03/24 revealed 0.5-1 cm sliding-type hiatal hernia with no significant erosive esophagitis and minimal antral gastritis otherwise normal examination up to the 2nd and 3rd part of the duodenum. Plan/recommendation Dr Calvo - Pureed diet and advance as tolerated. -continue with Protonix 40 mg po daily. - Monitor H/H -occult blood positive - Continue IV antibiotic and other management as per Hospitalist - Recommended outpatient elective colonoscopy for positive occult blood - Will monitor the patient. Plan discussed with: Patient, Other (RN) Dietary Evaluation Review Comments: 1) Advance to 2g Na diet when medically feasible, pending ROSE GROWER approval 2) Refer to outpatient RD for weight management 3) F/u with salesperson automobiles and marketing project coordinator Expected Outcomes/Goals: 1) appetite and labs to improve 2) diet to advance 3) f/u in 3-5 days CARLOTTA GARCIA RESIDENT Aug 05, 2024 15:49
--- NOTE | 2024-08-05 16:35 | DVHPN2 ---
Progress Note - Dictate Date Seen: Aug 05, 2024 Medical Necessity Reason Pt with a Central, PICC or Fol: Yes The following are medically ne: Tate Catheter Reason for tate catheter: Strict I&O Subjective Mr. Jane is a 68 years old right-handed gentleman with a history of hypertension, COPD, rhabdomyolysis, status post craniotomy, he was brought to the [facility] on 07/31/2024 with a chief company of shortness breath x1 day. I have seen and examined the patient along with his nurse, he was voice still very slurry and hard to understand, he looks fine, he is oriented person, place, he knows year and the month The tremor in the right hand maybe better, Stool occult blood, 08/02/2024: positive Urinalysis, 08/01/2024: WBC: 8, urine leukocyte esterase: Negative WBC/HB/PLT/MCV, 08/02/2024: 12.1/8.4/337/85 BUN/CR, 08/01/2024: 39/1, 08/02/2024: 55/1.28, Lactic acid, 08/01/24: 2.2 Liver function tests, 08/02/2024: Unremarkable Vitamin B12, 08/03/2024: 131 TSH, 07/2019 5:0.66 FT4, 08/03/2019 5:1.09 EEG, 08/04/2024: Mildly abnormal EEG CT head, 08/02/2024: 1. No acute intracranial process. 2. Postsurgical changes in the left frontal lobe is described above vital signs Vital Sign Date Time Temp Pulse Resp B/P (MAP) Pulse Ox O2 Delivery O2 Flow Rate FiO2 08/05/24 13:16 98.5 60 18 150/79 (102) 97 98.5 08/05/24 10:00 Nasal Cannula 2.0 08/05/24 10:00 28 Total Intake and Output 08/04/24 08/04/24 08/05/24 15:00 23:00 07:00 Intake Total 600 ml 1196.5 ml 1575 ml Output Total 1500 ml Balance 600 ml -303.5 ml 1575 ml medications Current Medications Medications Dose Ordered Sig/Camelia Route Start Time Stop Time Status Last Admin Dose Admin Ceftriaxone Sodium 50 ml @ 100 mls/hr DAILY@09 IV 08/01/24 09:00 08/05/24 08:26 100 MLS/HR Azithromycin 250 ml @ 125 mls/hr DAILY IV 08/01/24 10:00 08/05/24 11:20 125 MLS/HR Levetiracetam 750 mg BID PO 08/01/24 10:00 08/05/24 08:46 750 MG Memantine 5 mg Q12HR PO 08/01/24 10:00 08/05/24 08:51 5 MG Clopidogrel Bisulfate 75 mg DAILY PO 08/01/24 10:00 08/04/24 10:55 75 MG Nifedipine 60 mg DAILY PO 08/01/24 10:00 08/05/24 08:47 60 MG Ondansetron HCl 4 mg Q4HP PRN IV 08/01/24 01:45 08/01/24 11:32 4 MG Acetaminophen 650 mg Q6HP PRN PO 08/01/24 01:45 Nitroglycerin 0.4 mg Q5MINP PRN SL 08/01/24 01:45 Morphine Sulfate 2 mg Q30M PRN IV 08/01/24 01:45 Methylprednisolone Sodium Succinate 40 mg BID IV 08/02/24 10:00 08/05/24 08:39 40 MG Guaifenesin/ Dextromethorphan 10 ml Q4HP PRN PO 08/01/24 05:00 Pantoprazole Sodium 40 mg DAILY IV 08/02/24 10:00 08/05/24 08:35 40 MG Sodium Chloride 1,000 ml @ 75 mls/hr [id number] IV 08/02/24 06:00 08/05/24 00:46 75 MLS/HR Metoprolol Tartrate 12.5 mg BID PO 08/03/24 22:00 08/05/24 08:49 12.5 MG Carbidopa/Levodopa 1 tab TID PO 08/04/24 21:15 08/05/24 06:10 1 TAB objective General: the patient is well developed and nourished. No acute distress. MENTAL STATUS: Awake and alert. Oriented to person, place, he knows year and the month SPEECH, LANGUAGE, HIGHER CORTICAL FUNCTION: no aphasia but he was moderate dysarthria, soft voice CRANIAL NERVES: Pupils are equal, round and reactive. EOMs full and conjugate. Facial sensation intact in all three divisions bilaterally. Mandibular strength intact. Facial muscles symmetrical and strength intact. He was diminished facial expression and blinking SENSATION: Sensation to touch and pinprick is fine MOTOR: Resting tremor in the right hand, cogwheeling in the wrists, with the left side more affected. Atrophy in bilateral intrinsic hand muscle. Muscle strength of the major groups in the upper extremities is 4/5. Muscle strength of the major groups in the lower extremities is 2/5. REFLEXES: Deep tendon reflexes normal and symmetrical. No pathological reflexes. CEREBELLAR/COORDINATION: Mild intentional tremor noticed in the right-handed GAIT/STATION: deferred. 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 Chronic organic brain injury Parkinson's disease ? Cognitive dysfunction, ? Alzheimer disease, ? Secondary to chronic brain injury On Keppra, ? Seizure disorder Respiratory failure/COPD exacerbation Pneumonia Assessment/Plan Monitoring Supportive treatment Telemetry Keppra 750 mg b.i.d. Memantine 5 mg b.i.d. Sinemet 25/100 mg t.i.d. considered to increase IV antibiotics Pulmonary on case GI on case,/colonoscopy More recommendation per clinical course This medical document was created using an electronic medical record system with [employer] computerized dictation system. Although this document has been carefully reviewed, there may still be some phonetic and typographical errors. These areas are purely typographical due to imperfections of the software programs, and do not reflect any compromise in the patient's medical care Prognosis poor Dietary Evaluation Review Comments: 1) Advance to 2g Na diet when medically feasible, pending M[employer] MIN[employer] BLASTING approval 2) Refer to outpatient RD for weight management 3) F/u with fabrication operator and software product manager Expected Outcomes/Goals: 1) appetite and labs to improve 2) diet to advance 3) f/u in 3-5 days Plan discussed with: Other KD GRIMALDO MD Aug 05, 2024 16:35
--- NOTE | 2024-08-05 18:19 | DVHPN2 ---
Progress Note - Dictate Date Seen: Aug 05, 2024 Medical Necessity Reason Pt with a Central, PICC or Fol: Yes The following are medically ne: Tate Catheter Reason for tate catheter: Strict I&O Subjective Patient was seen and evaluated in follow up. No overnight events. H&H stable. Patient had EEG which was mildly abnormal EEG. EEG seen in mild cerebral dysfunction due to metabolic/hypoxic encephalopathy or medication effects. WBC 11.6, TRACTOR CRANE ENGINEER 1.49. Telemetry reviewed. vital signs Vital Sign Date Time Temp Pulse Resp B/P (MAP) Pulse Ox O2 Delivery O2 Flow Rate FiO2 08/05/24 13:16 98.5 60 18 150/79 (102) 97 98.5 08/05/24 10:00 Nasal Cannula 2.0 08/05/24 10:00 28 Total Intake and Output 08/04/24 08/04/24 08/05/24 15:00 23:00 07:00 Intake Total 600 ml 1196.5 ml 1575 ml Output Total 1500 ml Balance 600 ml -303.5 ml 1575 ml medications Current Medications Medications Dose Ordered Sig/Camelia Route Start Time Stop Time Status Last Admin Dose Admin Ceftriaxone Sodium 50 ml @ 100 mls/hr DAILY@09 IV 08/01/24 09:00 08/05/24 08:26 100 MLS/HR Azithromycin 250 ml @ 125 mls/hr DAILY IV 08/01/24 10:00 08/05/24 11:20 125 MLS/HR Levetiracetam 750 mg BID PO 08/01/24 10:00 08/05/24 08:46 750 MG Memantine 5 mg Q12HR PO 08/01/24 10:00 08/05/24 08:51 5 MG Clopidogrel Bisulfate 75 mg DAILY PO 08/01/24 10:00 08/04/24 10:55 75 MG Nifedipine 60 mg DAILY PO 08/01/24 10:00 08/05/24 08:47 60 MG Ondansetron HCl 4 mg Q4HP PRN IV 08/01/24 01:45 08/01/24 11:32 4 MG Acetaminophen 650 mg Q6HP PRN PO 08/01/24 01:45 Nitroglycerin 0.4 mg Q5MINP PRN SL 08/01/24 01:45 Morphine Sulfate 2 mg Q30M PRN IV 08/01/24 01:45 Methylprednisolone Sodium Succinate 40 mg BID IV 08/02/24 10:00 08/05/24 08:39 40 MG Guaifenesin/ Dextromethorphan 10 ml Q4HP PRN PO 08/01/24 05:00 Pantoprazole Sodium 40 mg DAILY IV 08/02/24 10:00 08/05/24 08:35 40 MG Sodium Chloride 1,000 ml @ 75 mls/hr [id number] IV 08/02/24 06:00 08/05/24 00:46 75 MLS/HR Metoprolol Tartrate 12.5 mg BID PO 08/03/24 22:00 08/05/24 08:49 12.5 MG Carbidopa/Levodopa 1 tab TID PO 08/04/24 21:15 08/05/24 06:10 1 TAB objective GENERAL: Awake, alert, oriented. LUNGS: Decreased breath sounds. CARDIOVASCULAR: Heart sounds are good. ABDOMEN: Soft. laboratory and microbiology Laboratory Tests 08/05/24 05:10 Test 08/05/24 05:10 Range/Units Serum Glucose 132 H 74-106 mg/dL Problem List Community-acquired pneumonia. Acute hypoxic respiratory failure. COPD exacerbation. Obesity. Tachycardia. Assessment/Plan Continued all current supportive medical care. IV antibiotics as ordered. Sinemet, Nifedipine. Metoprolol, Plavix. Morphine for pain management. GI prophylactics. Additional plan as per the hospital course. Dietary Evaluation Review Comments: 1) Advance to 2g Na diet when medically feasible, pending LINE BUILDER approval 2) Refer to outpatient RD for weight management 3) F/u with community administrator and pharmacy district manager Expected Outcomes/Goals: 1) appetite and labs to improve 2) diet to advance 3) f/u in 3-5 days Plan discussed with: Patient SIGIFREDO ISBELL MD Aug 05, 2024 14:01
[2024-08-06] VITALS (14 sets, daily range): BP systolic 118–148; BP diastolic 64–87; PULSE 64–86; RESP 18–22; TEMP 98–98.5; O2SAT 92–100
[2024-08-06 10:53] LABS: Folate (Folic Acid) 8.17 ng/mL (>5.38)
--- NOTE | 2024-08-06 11:13 | DVHPN2 ---
Progress Note - Dictate Date Seen: Aug 06, 2024 Medical Necessity Reason Pt with a Central, PICC or Fol: Yes The following are medically ne: Tate Catheter Reason for tate catheter: Strict I&O Subjective Mr. Jane is a 68 years old right-handed gentleman with a history of hypertension, COPD, rhabdomyolysis, status post craniotomy, he was brought to the [facility] on 07/31/2024 with a chief company of shortness breath x1 day. I have seen and examined the patient along with his nurse, he still has voice still very slurry and hard to understand but it is better, he is oriented person, place, he knows year and the month The tremor in the right hand maybe better, Stool occult blood, 08/02/2024: positive Urinalysis, 08/01/2024: WBC: 8, urine leukocyte esterase: Negative WBC/HB/PLT/MCV, 08/02/2024: 12.1/8.4/337/85 BUN/CR, 08/01/2024: 39/1, 08/02/2024: 55/1.28, Lactic acid, 08/01/24: 2.2 Liver function tests, 08/02/2024: Unremarkable Vitamin B12, 08/03/2024: 131 TSH, 07/2019 5:0.66 FT4, 08/03/2019 5:1.09 EEG, 08/04/2024: Mildly abnormal EEG CT head, 08/02/2024: 1. No acute intracranial process. 2. Postsurgical changes in the left frontal lobe is described above vital signs Vital Sign Date Time Temp Pulse Resp B/P (MAP) Pulse Ox O2 Delivery O2 Flow Rate FiO2 08/06/24 08:59 66 115/70 08/06/24 08:54 98.5 20 99 98.5 08/05/24 20:00 Nasal Cannula* 4 36 Total Intake and Output 08/05/24 08/05/24 08/06/24 15:00 23:00 07:00 Intake Total 500 ml 480 ml 1000 ml Output Total 1650 ml 3000 ml Balance 500 ml -1170 ml -2000 ml medications Current Medications Medications Dose Ordered Sig/Camelia Route Start Time Stop Time Status Last Admin Dose Admin Ceftriaxone Sodium 50 ml @ 100 mls/hr DAILY@09 IV 08/01/24 09:00 08/06/24 08:00 100 MLS/HR Azithromycin 250 ml @ 125 mls/hr DAILY IV 08/01/24 10:00 08/05/24 11:20 125 MLS/HR Levetiracetam 750 mg BID PO 08/01/24 10:00 08/06/24 08:58 750 MG Memantine 5 mg Q12HR PO 08/01/24 10:00 08/06/24 08:57 5 MG Clopidogrel Bisulfate 75 mg DAILY PO 08/01/24 10:00 08/04/24 10:55 75 MG Nifedipine 60 mg DAILY PO 08/01/24 10:00 08/06/24 08:57 60 MG Ondansetron HCl 4 mg Q4HP PRN IV 08/01/24 01:45 08/01/24 11:32 4 MG Acetaminophen 650 mg Q6HP PRN PO 08/01/24 01:45 Nitroglycerin 0.4 mg Q5MINP PRN SL 08/01/24 01:45 Morphine Sulfate 2 mg Q30M PRN IV 08/01/24 01:45 Methylprednisolone Sodium Succinate 40 mg BID IV 08/02/24 10:00 08/06/24 08:53 40 MG Guaifenesin/ Dextromethorphan 10 ml Q4HP PRN PO 08/01/24 05:00 Pantoprazole Sodium 40 mg DAILY IV 08/02/24 10:00 08/06/24 08:24 40 MG Sodium Chloride 1,000 ml @ 75 mls/hr [id number] IV 08/02/24 06:00 08/05/24 00:46 75 MLS/HR Metoprolol Tartrate 12.5 mg BID PO 08/03/24 22:00 08/06/24 08:59 12.5 MG Carbidopa/Levodopa 1 tab TID PO 08/04/24 21:15 08/06/24 05:56 1 TAB objective General: the patient is well developed and nourished. No acute distress. MENTAL STATUS: Awake and alert. Oriented to person, place, he knows year and the month SPEECH, LANGUAGE, HIGHER CORTICAL FUNCTION: no aphasia but he was moderate dysarthria, soft voice CRANIAL NERVES: Pupils are equal, round and reactive. EOMs full and conjugate. Facial sensation intact in all three divisions bilaterally. Mandibular strength intact. Facial muscles symmetrical and strength intact. He was diminished facial expression and blinking SENSATION: Sensation to touch and pinprick is fine MOTOR: Resting tremor in the right hand, cogwheeling in the wrists, with the left side more affected. Atrophy in bilateral intrinsic hand muscle. Muscle strength of the major groups in the upper extremities is 4/5. Muscle strength of the major groups in the lower extremities is 2/5. REFLEXES: Deep tendon reflexes normal and symmetrical. No pathological reflexes. CEREBELLAR/COORDINATION: Mild intentional tremor noticed in the right-handed GAIT/STATION: deferred. 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 Chronic organic brain injury Parkinson's disease ? Cognitive dysfunction, ? Alzheimer disease, ? Secondary to chronic brain injury On Keppra, ? Seizure disorder Respiratory failure/COPD exacerbation Pneumonia Assessment/Plan Monitoring Supportive treatment Telemetry Keppra 750 mg b.i.d. Memantine 5 mg b.i.d. Increase the Sinemet 25/100 mg q.i.d. considered to increase IV antibiotics Pulmonary on case GI on case,/colonoscopy More recommendation per clinical course This medical document was created using an electronic medical record system with [employer] computerized dictation system. Although this document has been carefully reviewed, there may still be some phonetic and typographical errors. These areas are purely typographical due to imperfections of the software programs, and do not reflect any compromise in the patient's medical care Prognosis poor Dietary Evaluation Review Comments: 1) Advance to 2g Na diet when medically feasible, pending SALES SERVICE REPRESENTATIVE approval 2) Refer to outpatient RD for weight management 3) F/u with bakery machine mechanic supervisor and machine operator Expected Outcomes/Goals: 1) appetite and labs to improve 2) diet to advance 3) f/u in 3-5 days Plan discussed with: Other KD GRIMALDO MD Aug 06, 2024 11:13
--- NOTE | 2024-08-06 12:42 | ECG ---
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
--- NOTE | 2024-08-06 13:32 | DVHPN2 ---
Subjective Patient denies any symptoms. Reviewed: Care Plan, H&P, Labs, Medications, Previous Orders, Radiology Changes from previous H/P or p: No Changes General: Per HPI Respiratory: Cough Objective Vitals Vital Signs Date Time Temp Pulse Resp B/P (MAP) Pulse Ox O2 Delivery O2 Flow Rate FiO2 08/06/24 13:00 98.5 73 20 120/64 (82) 94 98.5 08/05/24 20:00 Nasal Cannula* 4 36 Intake/Output Intake and Output 08/06/24 07:00 Intake Total 1980 ml Output Total 4650 ml Balance -2670 ml Intake Oral 1280 ml IV Total 700 ml Output Urine Total 4650 ml General Appearance: Alert, Cooperative HEENT: Atraumatic, PERRLA Cardiovascular: Normal S1, Normal S2 Abdomen: Normal bowel sounds, Soft Neuro: Other (garble speech) Skin: Dry, Intact Psych/Mental Status: Mental status NL Medications Current Medications Medications Dose Ordered Sig/Camelia Route Start Time Stop Time Status Last Admin Dose Admin Ceftriaxone Sodium 50 ml @ 100 mls/hr DAILY@09 IV 08/01/24 09:00 08/06/24 08:00 100 MLS/HR Azithromycin 250 ml @ 125 mls/hr DAILY IV 08/01/24 10:00 08/05/24 11:20 125 MLS/HR Levetiracetam 750 mg BID PO 08/01/24 10:00 08/06/24 08:58 750 MG Memantine 5 mg Q12HR PO 08/01/24 10:00 08/06/24 08:57 5 MG Nifedipine 60 mg DAILY PO 08/01/24 10:00 08/06/24 08:57 60 MG Ondansetron HCl 4 mg Q4HP PRN IV 08/01/24 01:45 08/01/24 11:32 4 MG Acetaminophen 650 mg Q6HP PRN PO 08/01/24 01:45 Nitroglycerin 0.4 mg Q5MINP PRN SL 08/01/24 01:45 Morphine Sulfate 2 mg Q30M PRN IV 08/01/24 01:45 Methylprednisolone Sodium Succinate 40 mg BID IV 08/02/24 10:00 08/06/24 08:53 40 MG Guaifenesin/ Dextromethorphan 10 ml Q4HP PRN PO 08/01/24 05:00 Metoprolol Tartrate 12.5 mg BID PO 08/03/24 22:00 08/06/24 08:59 12.5 MG Carbidopa/Levodopa 1 tab QID PO 08/06/24 12:00 Laboratory Results Laboratory Tests 08/05/24 05:10 Urinalysis Test 08/01/24 01:50 Urine Color Light-yellow (Yellow) Urine Clarity Turbid (Clear) H Urine pH 5.5 (5.0-9.0) Urine Specific [place] 1.023 (1.001-1.035) Urine Protein 1+ (Negative) H Urine Ketones Trace (Negative) Urine Blood 3+ /uL (Negative) H Urine Nitrite Negative (Negative) Urine Bilirubin Negative (Negative) Urine Urobilinogen Normal mg/dL (Negative) Urine Leukocyte Esterase Negative /uL (Negative) Urine RBC 361 /hpf (0 - 3) Urine Microscopic WBC 8 /HPF (0-3) H Urine Squamous Epithelial Cells Few /hpf (<5) Urine Bacteria Few /hpf (None Seen) H Urine Mucus Few (None Seen) Urine Glucose Normal mg/dL (Normal) Microbiology Microbiology Date/Time Source Procedure Growth Status 08/01/24 00:41 Blood Blood Culture - Final NO GROWTH AFTER 5 DAYS OF INCUBATION. Complete Labs and/or images reviewed: Labs reviewed by me, Image(s) reviewed by me Assessment/Plan Assessment/Plan Impression: -acute hypoxic respiratory failure -right middle lobe atelectasis versus opacity, questionable aspiration pneumonia -history of left frontal alone craniectomy -? Traumatic brain injury -COPD -GI bleed with acute anemia from blood loss -? Alzheimer's/Parkinson's -acute kidney injury -tachycardia, multifocal PVCs Plan: -now overseeing patient for Dr. Munoz. Apparently, [facility]. Discussion was made with case management regarding which facility the patient was going to and under which service, including? Hospice. -given patient's CT angiogram of the chest, start EzPAP with bronchodilators and Mucomyst for possible right middle lobe atelectasis versus opacity. Patient high-risk for aspiration pneumonia -continue current antibiotic therapy -neurology consultation -pulmonology consultation -stop amiodarone drip given patient was now sinus rhythm with occasional unifocal PVCs -gastroenterology consultation: Patient underwent EGD. Currently on PPI. Unable to find etiology for why patient was on Plavix. Stop Plavix at this time -continue rate control with beta-gerri therapy -social service consultation for discharge planning. We will plan for DC tomorrow. Total time spent with patient discussing and formulating plan of care: 35 minutes. This medical document was created using an electronic medical record system with [employer] dictation system. Although this document has been carefully reviewed, there may still be some phonetic and typographical errors. These areas are purely typographical due to imperfections of the software programs, and do not reflect any compromise in the patient's medical care. Plan discussed with: Patient, Other (RN) My Orders Orders - RONNIE CHAMBERS NP Procedure Category Date Status Time Basic Metabolic Panel LAB 08/06/24 Logged 12:01 Date of Service: Aug 06, 2024 Billing Provider: RONNIE CHAMBERS NP Common Visit Codes: [id number] INP/OBS CARE(HIGH) RONNIE CHAMBERS NP Aug 06, 2024 13:32
[2024-08-06 13:50] LABS: Anion Gap 9 (5-15); Carbon Dioxide 25 mmol/L (20-31); Chloride 104 mmol/L (98-107); Potassium 4.4 mmol/L (3.5-5.1); Sodium 138 mmol/L (136-145)
[2024-08-06 13:51] LABS: Calcium 9.5 mg/dL (8.7-10.4)
[2024-08-06 13:56] LABS: BUN/Creatinine Ratio 18.3 (10.0-20.0)
--- NOTE | 2024-08-06 13:57 | DVH ---
CHEST RADIOGRAPH Indication: RML PNA Technique: Single frontal view of the chest was obtained Comparison: XY CHEST PORTABLE on DOS: 08/01/24 FINDINGS: Lines and Tubes: None Lungs: Elevation of the right diaphragm suggesting infiltrate and atelectasis in the right middle lob e and lower lobe. This is unchanged from 08/01/2024. There are no older films for comparison determin e chronic change versus subacute change. Pleura: No effusion. No pneumothorax. Cardiomediastinal contours: Unremarkable Bones: No acute osseous abnormality. IMPRESSION: 1. No change from 08/01/2024
[2024-08-06 14:00] LABS: Blood Urea Nitrogen 31 mg/dL (9-23); Glucose 128 mg/dL (74-106)
[2024-08-06] MEDS: CARBIDOPA W LEVODOPA 25/250mg TABLET PO SCH (14:02)
--- NOTE | 2024-08-06 15:12 | DVHPN2 ---
Progress Note - Dictate Date Seen: Aug 06, 2024 Medical Necessity Reason Pt with a Central, PICC or Fol: Yes The following are medically ne: Tate Catheter Reason for tate catheter: Strict I&O Subjective Patient was seen and evaluated in follow up. No overnight events. Patient denies any symptoms. Patient is on 2 LPM NC. BUN 31, Cause Analyst 1.69. Final blood cultures are negative. Chest x-ray is unchanged from previous. Telemetry reviewed. vital signs Vital Sign Date Time Temp Pulse Resp B/P (MAP) Pulse Ox O2 Delivery O2 Flow Rate FiO2 08/06/24 14:01 72 20 120/64 92 4.0 36 08/06/24 13:00 98.5 98.5 08/06/24 10:00 Nasal Cannula Total Intake and Output 08/05/24 08/05/24 08/06/24 15:00 23:00 07:00 Intake Total 500 ml 480 ml 1000 ml Output Total 1650 ml 3000 ml Balance 500 ml -1170 ml -2000 ml medications Current Medications Medications Dose Ordered Sig/Camelia Route Start Time Stop Time Status Last Admin Dose Admin Ceftriaxone Sodium 50 ml @ 100 mls/hr DAILY@09 IV 08/01/24 09:00 08/06/24 08:00 100 MLS/HR Azithromycin 250 ml @ 125 mls/hr DAILY IV 08/01/24 10:00 08/06/24 10:00 125 MLS/HR Levetiracetam 750 mg BID PO 08/01/24 10:00 08/06/24 08:58 750 MG Memantine 5 mg Q12HR PO 08/01/24 10:00 08/06/24 08:57 5 MG Nifedipine 60 mg DAILY PO 08/01/24 10:00 08/06/24 08:57 60 MG Ondansetron HCl 4 mg Q4HP PRN IV 08/01/24 01:45 08/01/24 11:32 4 MG Acetaminophen 650 mg Q6HP PRN PO 08/01/24 01:45 Nitroglycerin 0.4 mg Q5MINP PRN SL 08/01/24 01:45 Morphine Sulfate 2 mg Q30M PRN IV 08/01/24 01:45 Methylprednisolone Sodium Succinate 40 mg BID IV 08/02/24 10:00 08/06/24 08:53 40 MG Guaifenesin/ Dextromethorphan 10 ml Q4HP PRN PO 08/01/24 05:00 Metoprolol Tartrate 12.5 mg BID PO 08/03/24 22:00 08/06/24 08:59 12.5 MG Carbidopa/Levodopa 1 tab QID PO 08/06/24 12:00 08/06/24 14:02 1 TAB Pantoprazole Sodium 40 mg DAILY@0600 PO 08/07/24 06:00 Levalbuterol HCl 0.625 mg Q6HR NEB 08/06/24 18:00 Acetylcysteine 100 mg Q6HR NEB 08/06/24 18:00 objective GENERAL: Awake, alert, oriented. LUNGS: Decreased breath sounds. CARDIOVASCULAR: Heart sounds are good. ABDOMEN: Soft. laboratory and microbiology Laboratory Tests 08/06/24 13:09 08/05/24 05:10 Test 08/06/24 13:09 Range/Units Serum Glucose 128 H 74-106 mg/dL Problem List Community-acquired pneumonia. Acute hypoxic respiratory failure. COPD exacerbation. Obesity. Tachycardia. Assessment/Plan Continued all current supportive medical care. IV antibiotics as ordered. Sinemet, Nifedipine. Metoprolol, Plavix. Morphine for pain management. GI prophylactics. Additional plan as per the hospital course. Dietary Evaluation Review Comments: 1) Advance to 2g Na diet when medically feasible, pending MASTER OF CEREMONIES approval 2) Refer to outpatient RD for weight management 3) F/u with content development manager and engineering group leader Expected Outcomes/Goals: 1) appetite and labs to improve 2) diet to advance 3) f/u in 3-5 days Plan discussed with: Patient SIGIFREDO ISBELL MD Aug 06, 2024 15:12
--- NOTE | 2024-08-06 16:05 | DVHPN2 ---
Progress Note Date Seen: Aug 06, 2024 Resident Creating Document: AYUSH KILPATRICK RESIDENT Medical Necessity Reason Pt with a Central, PICC or Fol: Yes The following are medically ne: Tate Catheter Reason for tate catheter: Strict I&O Subjective Review of Systems Patient seen and examined at bedside. He is alert, oriented x3 . No new complaints. Patient underwent EGD two days ago. Showed hiatal hernia, mild antral gastritis, likely hemoptysis related to pneumonia not active GI bleed. Objective vital signs Vital Sign Date Time Temp Pulse Resp B/P (MAP) Pulse Ox O2 Delivery O2 Flow Rate FiO2 08/06/24 14:01 72 20 120/64 92 4.0 36 08/06/24 13:00 98.5 98.5 08/06/24 10:00 Nasal Cannula Total Intake and Output 08/05/24 08/05/24 08/06/24 15:00 23:00 07:00 Intake Total 500 ml 480 ml 1000 ml Output Total 1650 ml 3000 ml Balance 500 ml -1170 ml -2000 ml medications Current Medications Medications Dose Ordered Sig/Camelia Route Start Time Stop Time Status Last Admin Dose Admin Ceftriaxone Sodium 50 ml @ 100 mls/hr DAILY@09 IV 08/01/24 09:00 08/06/24 08:00 100 MLS/HR Azithromycin 250 ml @ 125 mls/hr DAILY IV 08/01/24 10:00 08/06/24 10:00 125 MLS/HR Levetiracetam 750 mg BID PO 08/01/24 10:00 08/06/24 08:58 750 MG Memantine 5 mg Q12HR PO 08/01/24 10:00 08/06/24 08:57 5 MG Nifedipine 60 mg DAILY PO 08/01/24 10:00 08/06/24 08:57 60 MG Ondansetron HCl 4 mg Q4HP PRN IV 08/01/24 01:45 08/01/24 11:32 4 MG Acetaminophen 650 mg Q6HP PRN PO 08/01/24 01:45 Nitroglycerin 0.4 mg Q5MINP PRN SL 08/01/24 01:45 Morphine Sulfate 2 mg Q30M PRN IV 08/01/24 01:45 Methylprednisolone Sodium Succinate 40 mg BID IV 08/02/24 10:00 08/06/24 08:53 40 MG Guaifenesin/ Dextromethorphan 10 ml Q4HP PRN PO 08/01/24 05:00 Metoprolol Tartrate 12.5 mg BID PO 08/03/24 22:00 08/06/24 08:59 12.5 MG Carbidopa/Levodopa 1 tab QID PO 08/06/24 12:00 08/06/24 14:02 1 TAB Pantoprazole Sodium 40 mg DAILY@0600 PO 08/07/24 06:00 Levalbuterol HCl 0.625 mg Q6HR NEB 08/06/24 18:00 Acetylcysteine 100 mg Q6HR NEB 08/06/24 18:00 Examination Physical examination: General Appearance: Alert, Oriented X3, Cooperative, No acute distress HEENT: Atraumatic, PERRLA, EOMI, Mucous membrane moist/pink Respiratory: Clear to auscultation, Normal air movement Cardiovascular: Regular rate, Normal S1, Normal S2, No murmurs, no chest wall tenderness Abdominal: Normal bowel sounds, Soft, No tenderness, No hepatospenomegaly, No masses Extremities: No clubbing, No cyanosis, No edema, Normal pulses, No tenderness/swelling Skin: No rashes, No breakdown, No significant lesion Neuro: Normal gait, Normal speech, Strength at 5/5 X4 ext, Normal tone, Sensation intact,grossly intact cranial nerves Psych/Mental Status: Mental status NL, Mood NL laboratory and microbiology Laboratory Tests 08/06/24 13:09 08/05/24 05:10 Test 08/06/24 13:09 Range/Units Serum Glucose 128 H 74-106 mg/dL Microbiology Date/Time Source Procedure Growth Status 08/01/24 00:41 Blood Blood Culture - Final NO GROWTH AFTER 5 DAYS OF INCUBATION. Complete Labs and/or images reviewed: Labs reviewed by me, Image(s) reviewed by me Problem List/Assessment/Plan Problem List/Assessment/Plan Assessment Hemoptysis likely related to pneumonia Ruled out GI bleeding Acute hypoxic respiratory failure Pneumonia History of hypertension History of seizure Possible Parkinson's disease Possible dementia EGD on 08/03/24 revealed 0.5-1 cm sliding-type hiatal hernia with no significant erosive esophagitis and minimal antral gastritis otherwise normal examination up to the 2nd and 3rd part of the duodenum. Plan/recommendation - Pureed diet and advance as tolerated. - continue with Protonix 40 mg po daily. - H &H stable. - Occult blood positive - Continue IV antibiotic and other management as per Hospitalist - Recommended outpatient elective colonoscopy - Patient is stable from GI standpoint and will sign off for now. Plan discussed with Dr. Calvo Plan discussed with: Patient, Other Dietary Evaluation Review Comments: 1) Advance to 2g Na diet when medically feasible, pending HAND I TUBE BENDER approval 2) Refer to outpatient RD for weight management 3) F/u with plastics spreading machine operator and inspecting and testing lead hand Expected Outcomes/Goals: 1) appetite and labs to improve 2) diet to advance 3) f/u in 3-5 days AYUSH KILPATRICK RESIDENT Aug 06, 2024 16:05
[2024-08-06] MEDS: LEVALBUTEROL HCL 1.25 MG/3 ML NEB NEB SCH (19:35)
[2024-08-06] MEDS: ACETYLCYSTEINE 10 %(100MG/ML) SOL 4ML NEB SCH (19:35)
--- NOTE | 2024-08-06 20:30 | DVHPN2 ---
Progress Note - Dictate Date Seen: Aug 06, 2024 Medical Necessity Reason Pt with a Central, PICC or Fol: Yes The following are medically ne: Tate Catheter Reason for tate catheter: Strict I&O Subjective Patient seen and examined at bedside. Remains on supplemental oxygen Overnight events reviewed. vital signs Vital Sign Date Time Temp Pulse Resp B/P (MAP) Pulse Ox O2 Delivery O2 Flow Rate FiO2 08/06/24 19:45 75 20 100 08/06/24 19:35 Nasal Cannula 4.0 08/06/24 19:35 36 08/06/24 17:00 98.2 123/68 (86) 98.2 Total Intake and Output 08/05/24 08/05/24 08/06/24 15:00 23:00 07:00 Intake Total 500 ml 480 ml 1000 ml Output Total 1650 ml 3000 ml Balance 500 ml -1170 ml -2000 ml medications Current Medications Medications Dose Ordered Sig/Camelia Route Start Time Stop Time Status Last Admin Dose Admin Ceftriaxone Sodium 50 ml @ 100 mls/hr DAILY@09 IV 08/01/24 09:00 08/06/24 08:00 100 MLS/HR Azithromycin 250 ml @ 125 mls/hr DAILY IV 08/01/24 10:00 08/06/24 10:00 125 MLS/HR Levetiracetam 750 mg BID PO 08/01/24 10:00 08/06/24 08:58 750 MG Memantine 5 mg Q12HR PO 08/01/24 10:00 08/06/24 08:57 5 MG Nifedipine 60 mg DAILY PO 08/01/24 10:00 08/06/24 08:57 60 MG Ondansetron HCl 4 mg Q4HP PRN IV 08/01/24 01:45 08/01/24 11:32 4 MG Acetaminophen 650 mg Q6HP PRN PO 08/01/24 01:45 Nitroglycerin 0.4 mg Q5MINP PRN SL 08/01/24 01:45 Morphine Sulfate 2 mg Q30M PRN IV 08/01/24 01:45 Methylprednisolone Sodium Succinate 40 mg BID IV 08/02/24 10:00 08/06/24 08:53 40 MG Guaifenesin/ Dextromethorphan 10 ml Q4HP PRN PO 08/01/24 05:00 Metoprolol Tartrate 12.5 mg BID PO 08/03/24 22:00 08/06/24 08:59 12.5 MG Carbidopa/Levodopa 1 tab QID PO 08/06/24 12:00 08/06/24 18:31 1 TAB Pantoprazole Sodium 40 mg DAILY@0600 PO 08/07/24 06:00 Levalbuterol HCl 0.625 mg Q6HR NEB 08/06/24 18:00 08/06/24 19:35 0.625 MG Acetylcysteine 100 mg Q6HR NEB 08/06/24 18:00 08/06/24 19:35 100 MG objective Gen.: Patient lying in bed in no apparent distress. On supplemental oxygen. Head: Normocephalic, atraumatic. Eyes: EOMI/PERRLA. Ears: Normal hearing. Normal anatomy. Neck/trachea: Trachea midline, supple. Nose: Normal external anatomy. Mouth: Moist mucous membranes. Chest: Improved air entry bilaterally. No wheezing or rhonchi. Cardiovascular: Positive S1, positive S2. Regular rate and rhythm. Abdomen: Positive bowel sounds in all 4 quadrants. Soft, non-tender, non- distended. : Deferred. Rectal: Deferred. Skin: Warm, dry. Intact. Extremities: 2+ radial pulses bilaterally. No lower extremity edema. Neuro: Awake, alert, oriented x3. No gross motor or sensory deficits. Cranial nerves II through XII intact. Gait not assessed. laboratory and microbiology Laboratory Tests 08/06/24 13:09 08/05/24 05:10 Test 08/06/24 13:09 Range/Units Serum Glucose 128 H 74-106 mg/dL Assessment/Plan Impression: Acute hypoxic respiratory failure Dependence on supplemental oxygen Community-acquired pneumonia Acute COPD exacerbation Obesity BMI 31 Atelectasis Events: Remains on supplemental oxygen, 2 LPM NC Taper O2 as tolerated CXR reviewed, shows elevation of the right diaphragm suggesting infiltrate and atelectasis in the right middle lobe and lower lobe, unchanged from 08/01/2024. Continue bronchodilators IV steroids Continue antibiotics Head CT demonstrated no acute intracranial process. CTA revealed no pulmonary embolism. Labs and imaging reviewed. Rest of plan as noted below. Plan: Supplemental oxygen Titrate to keep O2 sats above 92%. Continue bronchodilators. IV steroids Continue antibiotics Incentive spirometry Antiepileptic medication - Keppra Monitor renal function. Monitor electrolytes. Supplement as necessary. Monitor ins and outs. Diet and lifestyle modifications for weight reduction Obesity - complicates all care DVT prophylaxis. Prognosis: Guarded given patient's multiple co-morbidities. Rest of plan per hospitalist and other consultants. Thank you Dr. Munoz, for allowing me to participate in this patient's care. Further recommendations will depend on the patient's clinical course. Please do not hesitate to contact me if you have any questions or concerns. This medical document was created using an electronic medical record system with [employer] dictation system. Although these documentations are being carefully reviewed, there may still be some phonetic and typographical changes. The errors are purely typographical, due to imperfection on the software program, and do not reflect any compromise in the patient's medical care. Dietary Evaluation Review Comments: 1) Advance to 2g Na diet when medically feasible, pending INDUCTION COORDINATION ENGINEER approval 2) Refer to outpatient RD for weight management 3) F/u with b2b sales manager and forest fire management officer Expected Outcomes/Goals: 1) appetite and labs to improve 2) diet to advance 3) f/u in 3-5 days Plan discussed with: Other (RN) JOVANA FOREMAN MD Aug 06, 2024 20:30
[2024-08-07] VITALS (13 sets, daily range): BP systolic 113–142; BP diastolic 62–74; PULSE 64–82; RESP 16–20; TEMP 98–98.2; O2SAT 95–100
[2024-08-07] MEDS: PANTOPRAZOLE 40 MG TAB PO SCH (05:48)
[2024-08-07] MEDS: AMOXICILLIN/CLAVUL 875 MG TAB PO SCH (12:19)
--- NOTE | 2024-08-07 17:33 | DVHPN2 ---
Progress Note Date Seen: Aug 07, 2024 Resident Creating Document: AYUSH KILPATRICK RESIDENT Medical Necessity Reason Pt with a Central, PICC or Fol: Yes The following are medically ne: Tate Catheter Reason for tate catheter: Strict I&O Subjective Review of Systems Patient was seen and examined on the bedside. He is alert oriented x3. Complaint of chest pain and cough. No other active complaint. Objective vital signs Vital Sign Date Time Temp Pulse Resp B/P (MAP) Pulse Ox O2 Delivery O2 Flow Rate FiO2 08/07/24 16:36 98.0 65 16 118/72 (87) 98 98.0 08/07/24 11:39 Nasal Cannula 4.0 08/07/24 11:39 36 Total Intake and Output 08/06/24 08/06/24 08/07/24 15:00 23:00 07:00 Intake Total 250 ml 860 ml 450 ml Output Total 1600 ml 800 ml Balance 250 ml -740 ml -350 ml medications Current Medications Medications Dose Ordered Sig/Camelia Route Start Time Stop Time Status Last Admin Dose Admin Levetiracetam 750 mg BID PO 08/01/24 10:00 08/07/24 12:19 750 MG Memantine 5 mg Q12HR PO 08/01/24 10:00 08/07/24 12:20 5 MG Nifedipine 60 mg DAILY PO 08/01/24 10:00 08/07/24 12:21 60 MG Ondansetron HCl 4 mg Q4HP PRN IV 08/01/24 01:45 08/01/24 11:32 4 MG Acetaminophen 650 mg Q6HP PRN PO 08/01/24 01:45 Nitroglycerin 0.4 mg Q5MINP PRN SL 08/01/24 01:45 Morphine Sulfate 2 mg Q30M PRN IV 08/01/24 01:45 Methylprednisolone Sodium Succinate 40 mg BID IV 08/02/24 10:00 08/07/24 12:21 40 MG Guaifenesin/ Dextromethorphan 10 ml Q4HP PRN PO 08/01/24 05:00 Metoprolol Tartrate 12.5 mg BID PO 08/03/24 22:00 08/07/24 12:20 12.5 MG Carbidopa/Levodopa 1 tab QID PO 08/06/24 12:00 08/07/24 12:20 1 TAB Pantoprazole Sodium 40 mg DAILY@0600 PO 08/07/24 06:00 08/07/24 05:48 40 MG Levalbuterol HCl 0.625 mg Q6HR NEB 08/06/24 18:00 08/07/24 11:34 0.625 MG Acetylcysteine 100 mg Q6HR NEB 08/06/24 18:00 08/07/24 11:34 100 MG Amoxicillin/ Clavulanate Potassium 875 mg Q12HR PO 08/07/24 10:00 08/07/24 12:19 875 MG Examination Physical examination: General Appearance: Alert, Oriented X3, Cooperative, No acute distress HEENT: Atraumatic, PERRLA, EOMI, Mucous membrane moist/pink Respiratory: Clear to auscultation, Normal air movement Cardiovascular: Regular rate, Normal S1, Normal S2, No murmurs, no chest wall tenderness Abdominal: Normal bowel sounds, Soft, No tenderness, No hepatospenomegaly, No masses Extremities: No clubbing, No cyanosis, No edema, Normal pulses, No tenderness/swelling Skin: No rashes, No breakdown, No significant lesion Neuro: Normal gait, Normal speech, Strength at 5/5 X4 ext, Normal tone, Sensation intact, Cranial nerves 3-12 NL, Reflexes 2+ Psych/Mental Status: Mental status NL, Mood NL laboratory and microbiology Laboratory Tests 08/06/24 13:09 08/05/24 05:10 Test 08/06/24 13:09 Range/Units Serum Glucose 128 H 74-106 mg/dL Microbiology Date/Time Source Procedure Growth Status 08/01/24 00:41 Blood Blood Culture - Final NO GROWTH AFTER 5 DAYS OF INCUBATION. Complete Labs and/or images reviewed: Labs reviewed by me, Image(s) reviewed by me Problem List/Assessment/Plan Problem List/Assessment/Plan Assessment Hemoptysis likely related to pneumonia Ruled out GI bleeding Acute hypoxic respiratory failure Pneumonia History of hypertension History of seizure Possible Parkinson's disease Possible dementia EGD on 08/03/24 revealed 0.5-1 cm sliding-type hiatal hernia with no significant erosive esophagitis and minimal antral gastritis otherwise normal examination up to the 2nd and 3rd part of the duodenum. Plan/recommendation - Pureed diet and advance as tolerated. - continue with Protonix 40 mg po daily. - H &H stable. - Occult blood positive - Continue IV antibiotic and other management as per Hospitalist - Recommended outpatient elective colonoscopy - Patient is stable from GI stand point Plan discussed with Dr. Calvo Plan discussed with: Patient, Other Dietary Evaluation Review Comments: 1) Advance to 2g Na diet when medically feasible, pending COLLEGE ADMINISTRATOR approval 2) Refer to outpatient RD for weight management 3) F/u with admission nurse and liner worker Expected Outcomes/Goals: 1) appetite and labs to improve 2) diet to advance 3) f/u in 3-5 days AYUSH KILPATRICK RESIDENT Aug 07, 2024 17:33
--- NOTE | 2024-08-07 21:33 | DVHPN2 ---
Progress Note - Dictate Date Seen: Aug 07, 2024 Medical Necessity Reason Pt with a Central, PICC or Fol: Yes The following are medically ne: Tate Catheter Reason for tate catheter: Strict I&O Subjective Patient was seen and evaluated in follow up. Patient has no new complaints at this time. Patient denies any cardiac symptoms. Patient is cardiac stable for discharge. vital signs Vital Sign Date Time Temp Pulse Resp B/P (MAP) Pulse Ox O2 Delivery O2 Flow Rate FiO2 08/07/24 16:36 98.0 65 16 118/72 (87) 98 98.0 08/07/24 11:39 Nasal Cannula 4.0 08/07/24 11:39 36 Total Intake and Output 08/06/24 08/06/24 08/07/24 15:00 23:00 07:00 Intake Total 300 ml 860 ml 450 ml Output Total 1600 ml 800 ml Balance 300 ml -740 ml -350 ml objective GENERAL: Awake, alert, oriented. LUNGS: Decreased breath sounds. CARDIOVASCULAR: Heart sounds are good. ABDOMEN: Soft. laboratory and microbiology Laboratory Tests 08/06/24 13:09 08/05/24 05:10 Test 08/06/24 13:09 Range/Units Serum Glucose 128 H 74-106 mg/dL Problem List Community-acquired pneumonia. Acute hypoxic respiratory failure. COPD exacerbation. Obesity. Tachycardia. Assessment/Plan Continued all current supportive medical care. IV antibiotics as ordered. Sinemet, Nifedipine. Metoprolol, Plavix. Morphine for pain management. GI prophylactics. Additional plan as per the hospital course. Dietary Evaluation Review Comments: 1) Advance to 2g Na diet when medically feasible, pending TELEPHONE ORDER CLERK ROOM SERVICE approval 2) Refer to outpatient RD for weight management 3) F/u with collar turner operator and forensic social worker Expected Outcomes/Goals: 1) appetite and labs to improve 2) diet to advance 3) f/u in 3-5 days Plan discussed with: Patient SIGIFREDO ISBELL MD Aug 07, 2024 21:33
--- NOTE | 2024-08-07 23:06 | DVHPN2 ---
Progress Note - Dictate Date Seen: Aug 07, 2024 Medical Necessity Reason Pt with a Central, PICC or Fol: Yes The following are medically ne: Tate Catheter Reason for tate catheter: Strict I&O Subjective Patient seen and examined at bedside. Remains on supplemental oxygen Overnight events reviewed. vital signs Vital Sign Date Time Temp Pulse Resp B/P (MAP) Pulse Ox O2 Delivery O2 Flow Rate FiO2 08/07/24 16:36 98.0 65 16 118/72 (87) 98 98.0 08/07/24 11:39 Nasal Cannula 4.0 08/07/24 11:39 36 Total Intake and Output 08/06/24 08/06/24 08/07/24 15:00 23:00 07:00 Intake Total 300 ml 860 ml 450 ml Output Total 1600 ml 800 ml Balance 300 ml -740 ml -350 ml objective Gen.: Patient lying in bed in no apparent distress. On supplemental oxygen. Head: Normocephalic, atraumatic. Eyes: EOMI/PERRLA. Ears: Normal hearing. Normal anatomy. Neck/trachea: Trachea midline, supple. Nose: Normal external anatomy. Mouth: Moist mucous membranes. Chest: Improved air entry bilaterally. No wheezing or rhonchi. Cardiovascular: Positive S1, positive S2. Regular rate and rhythm. Abdomen: Positive bowel sounds in all 4 quadrants. Soft, non-tender, non- distended. : Deferred. Rectal: Deferred. Skin: Warm, dry. Intact. Extremities: 2+ radial pulses bilaterally. No lower extremity edema. Neuro: Awake, alert, oriented x3. No gross motor or sensory deficits. Cranial nerves II through XII intact. Gait not assessed. laboratory and microbiology Laboratory Tests 08/06/24 13:09 08/05/24 05:10 Test 08/06/24 13:09 Range/Units Serum Glucose 128 H 74-106 mg/dL Assessment/Plan Impression: Acute hypoxic respiratory failure Dependence on supplemental oxygen Community-acquired pneumonia Acute COPD exacerbation Obesity BMI 31 Atelectasis Events: Remains on supplemental oxygen, 4 LPM NC Taper O2 as tolerated Continue bronchodilators IV steroids - taper as tolerated Continue PO antibiotics Antitussive as needed. Protonix for GI prophylaxis CXR on 08/06 showed elevation of the right diaphragm suggesting infiltrate and atelectasis in the right middle lobe and lower lobe, unchanged from 08/01/2024. Head CT demonstrated no acute intracranial process. CTA revealed no pulmonary embolism. Labs and imaging reviewed. Rest of plan as noted below. Plan: Supplemental oxygen Titrate to keep O2 sats above 92%. Continue bronchodilators. IV steroids Continue antibiotics Incentive spirometry Antiepileptic medication - Keppra Monitor renal function. Monitor electrolytes. Supplement as necessary. Monitor ins and outs. Diet and lifestyle modifications for weight reduction Obesity - complicates all care DVT prophylaxis. Prognosis: Guarded given patient's multiple co-morbidities. Rest of plan per hospitalist and other consultants. Thank you Dr. Munoz, for allowing me to participate in this patient's care. Further recommendations will depend on the patient's clinical course. Please do not hesitate to contact me if you have any questions or concerns. This medical document was created using an electronic medical record system with [employer] dictation system. Although these documentations are being carefully reviewed, there may still be some phonetic and typographical changes. The errors are purely typographical, due to imperfection on the software program, and do not reflect any compromise in the patient's medical care. Dietary Evaluation Review Comments: 1) Advance to 2g Na diet when medically feasible, pending CHEMICAL ETCHING PROCESSOR approval 2) Refer to outpatient RD for weight management 3) F/u with lens coater and analytics director Expected Outcomes/Goals: 1) appetite and labs to improve 2) diet to advance 3) f/u in 3-5 days Plan discussed with: Patient, Other (RN) JOVANA FOREMAN MD Aug 07, 2024 23:06
== END 2024-08-07 19:47 | DRG 871 ==
LOC: EDBD 23:29 → ER 23:29 → OVERFLOW 08-01 01:37 → TELE-EAST 08-01 23:45 → TELE-WESTW 08-05 07:45
PROVIDERS: ADMIT Nurse Practitioner Acute Care; ATTEND Nurse Practitioner Acute Care
PROC: 0DB68ZX Excision of Stomach, Via Natural or Artificial Opening Endoscopic, Diagnostic (ICD-10-PCS; 2024-08-03)
PROC: 0DB98ZX Excision of Duodenum, Via Natural or Artificial Opening Endoscopic, Diagnostic (ICD-10-PCS; principal; 2024-08-03 09:10)
PROC: 30233N1 Transfusion of Nonautologous Red Blood Cells into Peripheral Vein, Percutaneous Approach (ICD-10-PCS; 2024-08-04)
DX: A41.50 Gram-negative sepsis, unspecified (principal); J15.69 Pneumonia due to other Gram-negative bacteria; J96.01 Acute respiratory failure with hypoxia; J15.9 Unspecified bacterial pneumonia; J44.1 Chronic obstructive pulmonary disease with (acute) exacerbation; D62 Acute posthemorrhagic anemia; J44.0 Chronic obstructive pulmonary disease with (acute) lower respiratory infection; N17.9 Acute kidney failure, unspecified; K29.70 Gastritis, unspecified, without bleeding; E66.9 Obesity, unspecified; Z20.822 Contact with and (suspected) exposure to COVID-19; G20.A1 Parkinson's disease without dyskinesia, without mention of fluctuations; K44.9 Diaphragmatic hernia without obstruction or gangrene; G30.9 Alzheimer's disease, unspecified; F02.80 Dementia in other diseases classified elsewhere, unspecified severity, without behavioral disturbance, psychotic disturbance, mood disturbance, and anxiety; I49.3 Ventricular premature depolarization; G40.909 Epilepsy, unspecified, not intractable, without status epilepticus; I10 Essential (primary) hypertension; Z99.81 Dependence on supplemental oxygen; Z79.899 Other long term (current) drug therapy; Z68.31 Body mass index [BMI] 31.0-31.9, adult; Z87.820 Personal history of traumatic brain injury
CPT/HCPCS: 36415; 70450; 71045; 71275; 80048; 80053; 80061; 81001; 82270; 82607; 82746; 83605; 83880; 84439; 84443; 84484; 85007; 85025; 85027; 85379; 85610; 86850; 86870; 86900; 86901; 86922; 87040; 87426; 87804; 93005; 94640; 95819; 96374; 97163; 99291; G0378; J2003; J2250; J2405; J2470; J2543; J2704

== ENCOUNTER 2024-10-01 13:24 | Inpatient (IN) | payer OTHER, MEDICAID ==
[~2024-10-01] VITALS: Ht 185.4 cm; Wt 115.5 kg
[~2024-10-01 13:24] MED LIST: ATOR10TA52 PO; CLOP75TA70 PO; EZET-10 PO; HYDR1TAB97 PO; KEP500T PO; MEGE40TA4 PO; MEMA1TAB3 PO; MET25T PO; NIFE1TAB31 PO; QUET50TA27 PO
--- NOTE | 2024-10-01 14:00 | ECG ---
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
[2024-10-01] MEDS: ALBUTEROL SULF 2.5 MG/0.5ML(0.5%) NEB SOLN NEB ONE (14:18)
[2024-10-01] MEDS: IPRATROPIUM BROM 0.5 MG/2.5ML INH SOL NEB ONE (14:18)
--- NOTE | 2024-10-01 14:21 | ED.PDOC ---
History of Present Illness HPI Comments Mr. Jane, a 68-year-old gentleman with past medical history significant for sliding-type hiatal hernia, upper GI bleed, blood loss anemia, COPD, CAD, hypertension, seizures, questionable dementia, right basilar atelectasis, chronic hypoxic respiratory failure on 2 L of nasal cannula oxygen, obesity, deconditioning, and recent hospitalization at [facility] in July, with COPD exacerbation, hemoptysis and CAP comes with chief complaints of low grade fever, shortness of breath, possible signs of pneumonia, tachypnea and mouth breathing. Patient was discharged to [facility], now patient is coming from a facility with a facility business banking representative who mainly provided the history as patient is extremely poor historian. Past medical history: As above Past surgical history: Unknown except left frontal craniotomy. Family history: Noncontributory Social history: Denies any previous history of smoking, alcohol or drugs. Medications: Memantine, Seroquel, aspirin, clopidogrel, cranberry, megestrol, nifedipine, multivitamins, senna, Keppra. Allergies: NKDA or diet. Chief Complaint: Fever Time Seen by MD: 13:40 Primary Care Provider: unknown Reviewed Notes: Medications, Allergies Allergies: Coded Allergies: NO KNOWN ALLERGIES (Unverified , 07/31/24) Home Meds Active Scripts Metoprolol Tartrate (Lopressor) 25 Mg Tb, 12.5 MG PO BID for 30 Days, #30 TAB 2 Refills Prov:VENTURASAIRA EngelMY Candelario DO 08/05/24 Nifedipine (Nifedipine Er) 30 Mg Tab, 60 MG PO DAILY for 30 Days, #60 TAB 2 Refills Prov:VENTURAJOHN Engel DO 08/05/24 Levetiracetam (KEPPRA TABLET) 500 Mg Tb, 750 MG PO BID for 30 Days, #90 TAB 2 Refills Prov:VENTURASAIRA EngelMY Candelario DO 08/05/24 Information Source: Tabular Typist Mode of Arrival: stretcher Severity: Moderate Timing: Days Duration: Since onset Prehospital treatment: None Past Medical History PAST MEDICAL HISTORY: Alzheimer, CAD, COPD, HTN, Seizures Past Medical History (Other): as per HPI Surgical History: Unknown Surgical History (Other): as per HPI Family History Family History: Unknown Family History (Other): as per HPI Social History Smoker: Non-Smoker Alcohol: Denies ETOH Use Drugs: Denies Drug Use Lives In: Assisted Care Constitutional: reports: chills, fever, malaise; denies: diaphoresis, fatigue, sweats, weakness, others EENTM: denies: blurred vision, double vision, ear bleeding, ear discharge, ear drainage, ear pain, ear ringing, eye pain, eye redness, hearing loss, mouth pain, mouth swelling, nasal discharge, nose bleeding, nose congestion, nose pain, photophobia, tearing, throat pain, throat swelling, voice changes, others Respiratory: reports: cough, SOB at rest; denies: hemoptysis, orthopnea, SOB with excertion, stridor, wheezing, others Cardiovascular: denies: chest pain, dizzy spells, diaphoresis, Dyspnea on exertion, edema, irregular heart beat, left arm pain, lightheadedness, palpitations, PND, syncope, others Gastrointestinal: denies: abdomen distended, abdominal pain, blood streaked bowels, constipated, diarrhea, dysphagia, difficulty swallowing, hematemesis, melena, nausea, poor appetite, poor fluid intake, rectal bleeding, rectal pain, vomiting, others Genitourinary: denies: burning, dysuria, flank pain, frequency, hematuria, incontinence, penile discharge, penile sore, pain, testicle pain, testicle swelling, urgency, others Neurological: denies: dizziness, fainting, headache, left sided numbness, left sided weakness, numbness, paresthesia, pre-existing deficit, right sided numbness, right sided weakness, seizure, speech problems, tingling, tremors, weakness, others Musculoskeletal: denies: back pain, gout, joint pain, joint swelling, muscle pain, muscle stiffness, neck pain, others Integumetry: denies: bruises, change in color, change in hair/nails, dryness, laceration, lesions, lumps, rash, wounds, others Allergic/Immunocompromised: denies: Difficulty Healing, Frequent Infections, Hives, Itching, others Hematologic/Lymphatic: denies: anemia, blood clots, easy bleeding, easy bruising, swollen glands, others Endocrine: denies: excessive hunger, excessive sweating, excessive thirst, excessive urination, flushing, intolerance to cold, intolerance to heat, unexplained weight gain, unexplained weight loss, others Psychiatric: denies: anxiety, bipolar disorder, depression, hopeless, panic disorder, schizophrenia, sleepless, suicidal, others Unable to Obtain due to: Dementia, Other (poor historian, history obtained by the care fecility business banking representative) All Other Systems: Reviewed and Negative Physical Exam General Appearance: Mild Distress, Obese HEENT: Normal ENT Inspection, TMs Normal Neck: None, Normal Inspection Respiratory: Accessory Muscle Use, Decreased Breath Sounds Cardiovascular: Normal Peripheral Pulses, Regular Rate/Rhythm, Tachycardia Breast Exam: None Gastrointestinal: No Organomegaly, Non Tender, Normal Bowel Sounds Genitalia: Deferred Pelvic: Deferred Rectal: Deferred Extremities: Leg edema, Pedal edema, Other (mild redness, non tender ) Neurologic: Alert, No Motor Deficits, No Sensory Deficits, Speech Problem, Other (likely baseline as per caregiver ) Cerebellar Function: Unable to Test, NOT DONE Reflexes: NOT DONE Skin: Warm Lymphatic: None Was a procedure done? Was a procedure done?: No EKG EKG : Cardiac Rhythm: PVC's Comments irregular sinus rhythm, frequent PVCs, p waves preceeding qrs complexes visible, no baseline ekg to compare found in the file, tachycardia in 120s. Differential Dx Considerations may include: COPD exacerbation, CAP gram +ve / gram -ve/ Atypicals, Aspiration pneumonia, Viral pneumonia, CHF exacerbation, PE/DVT (comparatively less likely) X-Ray, Labs, Meds, VS Vital Signs Date Time Temp Pulse Resp B/P (MAP) Pulse Ox O2 Delivery O2 Flow Rate FiO2 10/01/24 14:18 28 99 Nasal Cannula* 2 28 10/01/24 13:55 99.3 102 24 120/58 (78) 97 99.3 10/01/24 13:38 125 Lab Test 10/01/24 14:13 10/01/24 14:12 Range/Units B-Type Natriuretic Peptide 74.26 0-100 pg/mL White Blood Count 15.4 H 4.4-10.8 10^3/uL Red Blood Count 3.71 L 4.5-5.90 10^6/uL Hemoglobin 10.2 L 13.5-17.5 g/dL Hematocrit 30.4 L 41.0-53.0 % Mean Corpuscular Volume 82.0 80.0-100.0 fL Mean Corpuscular Hemoglobin 27.5 L 28.0-32.0 pg Mean Corpuscular Hemoglobin Concent 33.5 32.0-36.0 g/dL Red Cell Distribution Width 16.8 H 11.8-14.3 % Platelet Count 185 140-450 10^3/uL Mean Platelet Volume 10.2 6.9-10.8 fL Neutrophils (%) (Auto) 93.5 H 37.0-80.0 % Lymphocytes (%) (Auto) 1.2 L 10.0-50.0 % Monocytes (%) (Auto) 5.2 0.0-12.0 % Eosinophils (%) (Auto) 0.0 0.0-7.0 % Basophils (%) (Auto) 0.1 0.0-2.0 % Neutrophils # (Auto) 14.4 H 1.6-8.6 10 ^3/uL Lymphocytes # (Auto) 0.2 L 0.4-5.4 10 ^3/uL Monocytes # (Auto) 0.8 0-1.3 10 ^3/uL Eosinophils # (Auto) 0 0-0.8 10 ^3/uL Basophils # (Auto) 0 0-0.2 10 ^3/uL Nucleated Red Blood Cells 0.0 % Sodium Level Pending Potassium Level Pending Chloride Level Pending Carbon Dioxide Level Pending Anion Gap Pending Blood Urea Nitrogen Pending Creatinine Pending Glomerular Filtration Rate Calc Pending BUN/Creatinine Ratio Pending Serum Glucose Pending Lactic Acid Level Pending Calcium Level Pending Total Bilirubin Pending Aspartate Amino Transferase (AST) Pending Alanine Aminotransferase (ALT) Pending Alkaline Phosphatase Pending Troponin I High Sensitivity 16 </=54 ng/L Total Protein Pending Albumin Pending Current Medications Medications (Trade) Dose Ordered Sig/Camelia Route Start Time Stop Time Status Last Admin Albuterol (Ventolin Medneb) 1.25 mg ONCE ONCE NEB 10/01/24 13:45 10/01/24 13:46 DC 10/01/24 14:18 Ipratropium [place] (Atrovent Medneb) 0.5 mg ONCE ONCE NEB 10/01/24 13:45 10/01/24 13:46 DC 10/01/24 14:18 Time of 1ST Reevaluation: 15:10 Reevaluation 1ST: Improved (Patient meets the SIRS/sepsis criteria, elevated WBC, tachypnea, tachycardia with possible source of infection thoracic. CURB 65 + 3 points with severe risk group needing inpatient admission. IV fluid 1 L, cefepime and vancomycin given. Caregiver updated. As per caregiver patient's next kin is a daughter who lives out of state. Presumptive full code. ) Patient Education/Counseling: Diagnosis, Treatment Family Education/Counseling: No Family Present Comments Case discussed with ED Attending Dr. Wheeler. Seen with PA/CLERICAL ASSISTANT: Directly Evaluated Sepsis focused exam: focus exam completed, time: (15: 07) Sepsis Sepsis Reasesment Focused Exam Sepsis focused exam: focus exam completed, time: (1510) Departure 1 Departure Time of Disposition: 15:10 Impression: Primary Impression: Sepsis Additional Impressions: COPD exacerbation Pneumonia Altered level of consciousness Disposition: ADMITTED INPATIENT Admit to: Tele Condition: Serious Additional Instructions: Admit to Hospital with hospitalist service for further management. Comments as discussed Critical Care Note Critical Care Time?: No Stability Stability form required: No Heart Score Heart Score: Heart Score Response (Comments) Value History N/A 0 EKG N/A 0 Age N/A 0 Risk Factors N/A 0 Troponin N/A 0 Total 0 LILLIAM ABRAHAM RESIDENT Oct 01, 2024 14:21
[2024-10-01 14:36] LABS: Basophils # (auto) 0 10 ^3/uL (0-0.2); Basophils % (auto) 0.1 % (0.0-2.0); Eosinophils # (auto) 0 10 ^3/uL (0-0.8); Hematocrit 30.4 % (41.0-53.0); Hemoglobin 10.2 g/dL (13.5-17.5); Lymphocytes # (auto) 0.2 10 ^3/uL (0.4-5.4); Lymphocytes % (auto) 1.2 % (10.0-50.0); Mean Corpuscular Hemoglobin 27.5 pg (28.0-32.0); Mean Corpuscular Hgb Conc. 33.5 g/dL (32.0-36.0); Monocytes # (auto) 0.8 10 ^3/uL (0-1.3); Monocytes % (auto) 5.2 % (0.0-12.0); Neutrophils # (auto) 14.4 10 ^3/uL (1.6-8.6); Neutrophils % (auto) 93.5 % (37.0-80.0); Platelet Count (auto) 185 10^3/uL (140-450); Red Blood Cells 3.71 10^6/uL (4.5-5.90); Red Cell Distribution Width 16.8 % (11.8-14.3); White Blood Cell 15.4 10^3/uL (4.4-10.8)
--- NOTE | 2024-10-01 14:52 | DVH ---
EXAM: XY CHEST PORTABLE Indication: sob Technique: Single frontal view of the chest was obtained Comparison: XY CHEST XRAY 1 VIEW on DOS: 08/06/24, XY CHEST PORTABLE on DOS: 08/01/24 FINDINGS: Lines and Tubes: None Lungs: Bibasilar opacities Pleura: No effusion. No pneumothorax. Cardiomediastinal contours: Cardiomegaly Bones: No acute osseous abnormality. IMPRESSION: Cardiomegaly with bibasilar opacities
[2024-10-01 15:11] LABS: Alanine Aminotransferase 17 U/L (7-40); Albumin 3.8 g/dL (3.2-4.8); Alkaline Phosphatase 52 U/L (46-116); Anion Gap 9 (5-15); BUN/Creatinine Ratio 17.3 (10.0-20.0); Calcium 9.1 mg/dL (8.7-10.4); Carbon Dioxide 22 mmol/L (20-31); Chloride 101 mmol/L (98-107); Lactic Acid w/Reflex 2.1 mmol/L (0.4-2.0); Potassium 4.1 mmol/L (3.5-5.1); Total Protein 6.8 g/dL (5.7-8.2)
[2024-10-01 15:12] LABS: Bilirubin, Total 0.6 mg/dL (0.2-1.0)
[2024-10-01 15:13] LABS: Aspartate Aminotransferase 10 U/L (13-40); Blood Urea Nitrogen 44 mg/dL (9-23); Glucose 160 mg/dL (74-106); Sodium 132 mmol/L (136-145)
[2024-10-01] MEDS: SODIUM CHLORIDE 0.9% 1,000 ML IV ONE (15:15)
[2024-10-01] MEDS: VANCOMYCIN 1GM/200ML PM 200 ML IV ONE ×2 (15:15→19:39)
--- NOTE | 2024-10-01 15:39 | CONS ---
Pharmacy Clinical Information: QTc = 499, consider repeat EKG while pt on Azithromycin BETTINA FABIAN PHARMACIST Oct 01, 2024 15:39
[2024-10-01] MEDS: CEFEPIME 2GM/50ML NS 50 ML IV ONE (15:44)
[2024-10-01] MEDS: AZITHROMYCIN 500MG/ 250ML 250 ML IV ONE (16:30)
[2024-10-01] MEDS ORDERED: ACETAMINOPHEN 325 MG TAB PO PRN (16:45)
[2024-10-01] MEDS ORDERED: ONDANSETRON HCL 4 MG/2 ML VIAL IV PRN (16:45)
[2024-10-01] MEDS ORDERED: IPRATROPIUM BROM 0.5 MG/2.5ML INH SOL NEB SCH (16:45)
[2024-10-01] MEDS ORDERED: VANCOMYCIN PER PHARMACY 0 MG IV SCH (16:45)
[2024-10-01] MEDS ORDERED: ALBUTEROL SULF 2.5 MG/0.5ML(0.5%) NEB SOLN NEB SCH (16:45)
[2024-10-01 16:46] VITALS: PULSE 108; RESP 28; O2SAT 99
--- NOTE | 2024-10-01 16:53 | DVHHP2 ---
History of Present Illness Mr. Jane, a 68-year-old gentleman with past medical history significant for s liding-type hiatal hernia, upper GI bleed, blood loss anemia, COPD, CAD, hypertension, seizures, questionable dementia, right basilar atelectasis, chronic hypoxic respiratory failure on 2 L of nasal cannula oxygen, obesity, deconditioning, and recent hospitalization at [facility] in July, with COPD exacerbation, hemoptysis and CAP comes with chief complaints of low grade fever, shortness of breath, possible signs of pneumonia, tachypnea and mouth breathing. Patient was discharged to [facility], now patient is coming from a facility with a facility cash applications representative who mainly provided the history as patient is extremely poor historian. Past medical history: As above Past surgical history: Unknown except left frontal craniotomy. Family history: Noncontributory Social history: Denies any previous history of smoking, alcohol or drugs. Medications: Memantine, Seroquel, aspirin, clopidogrel, cranberry, megestrol, nifedipine, multivitamins, senna, Keppra. Allergies: NKDA or diet. PAST MEDICAL HISTORY: Alzheimer, CAD, COPD, HTN, Seizures Past Medical History (Other): as per HPI Surgical History: Unknown Surgical History (Other): as per HPI Family History Family History: Unknown Family History (Other): as per HPI Social History Smoker: Non-Smoker Alcohol: Denies ETOH Use Drugs: Denies Drug Use Lives In: Assisted Care Allergies: Coded Allergies: NO KNOWN ALLERGIES (Unverified , 07/31/24) Home Meds Active Scripts Metoprolol Tartrate (Lopressor) 25 Mg Tb, 12.5 MG PO BID for 30 Days, #30 TAB 2 Refills Prov:VENTURAJOHN Candelario DO 08/05/24 Nifedipine (Nifedipine Er) 30 Mg Tab, 60 MG PO DAILY for 30 Days, #60 TAB 2 Refills Prov:VENTURASAIRA EngelMY Candelario DO 08/05/24 Levetiracetam (KEPPRA TABLET) 500 Mg Tb, 750 MG PO BID for 30 Days, #90 TAB 2 Refills Prov:VENTURAJOHN Candelario DO 08/05/24 Current Medications Current Medications Medications (Trade) Dose Ordered Sig/Camelia Route PRN Reason Start Time Stop Time Status Last Admin Diagnostic Test (Pha) (Accu-Chek Comfort Curve T) 1 strip Q4HR 10/01/24 18:00 Vancomycin HCl 0 ml @ 0 mls/hr UD IV 10/01/24 16:45 UNV Piperacillin Sod/ Tazobactam Sod 100 ml @ 100 mls/hr BID IV 10/01/24 22:00 UNV Azithromycin 250 ml @ 125 mls/hr DAILY IV 10/02/24 10:00 UNV Albuterol (Ventolin Medneb) 2.5 mg Q6H NEB 10/01/24 16:45 UNV Ipratropium [place] (Atrovent Medneb) 0.5 mg Q6H NEB 10/01/24 16:45 UNV Sodium Chloride (Saline Lock Ns) 10 ml Q8HR IV 10/01/24 22:00 UNV Docusate Sodium (Colace Capsule) 100 mg BIDPRN PRN PO FOR CONSTIPATION 10/01/24 16:45 UNV Acetaminophen (Tylenol Tablet) 650 mg Q6HP PRN PO PAIN SCALE 1-3 OR TEMP>100.4 10/01/24 16:45 UNV Acetaminophen/ Hydrocodone Bitart ([place] 5/325MG Tab) 1 tab Q4HP PRN PO MODERATE PAIN (4-6 PAIN SCALE) 10/01/24 16:45 UNV Ondansetron HCl (Zofran) 4 mg Q4HP PRN IV NAUSEA / VOMITING 10/01/24 16:45 UNV Vital Signs Vital Signs Date Time Temp Pulse Resp B/P (MAP) Pulse Ox O2 Delivery O2 Flow Rate FiO2 10/01/24 14:18 28 99 Nasal Cannula* 2 28 10/01/24 13:55 99.3 102 120/58 (78) 99.3 Physical Exam Generally-68 years old man lying in bed. On nasal cannula no apparent distress HEENT-atraumatic normocephalic Heart-sinus tachycardic Lungs Decreased breath sounds bilaterally lower lung lux Abdomen soft nontender nondistended Musculoskeletal-no edema cyanosis Neuro-asleep, difficult to understand verbal, not follow commands, spontaneously moving male of upper and lower extremity Results Labs Test 10/01/24 15:17 10/01/24 14:13 10/01/24 14:12 Range/Units Magnesium Level 1.8 1.6-2.6 mg/dL Troponin I High Sensitivity 15 </=54 ng/L B-Type Natriuretic Peptide 74.26 0-100 pg/mL White Blood Count 15.4 H 4.4-10.8 10^3/uL Red Blood Count 3.71 L 4.5-5.90 10^6/uL Hemoglobin 10.2 L 13.5-17.5 g/dL Hematocrit 30.4 L 41.0-53.0 % Mean Corpuscular Volume 82.0 80.0-100.0 fL Mean Corpuscular Hemoglobin 27.5 L 28.0-32.0 pg Mean Corpuscular Hemoglobin Concent 33.5 32.0-36.0 g/dL Red Cell Distribution Width 16.8 H 11.8-14.3 % Platelet Count 185 140-450 10^3/uL Mean Platelet Volume 10.2 6.9-10.8 fL Neutrophils (%) (Auto) 93.5 H 37.0-80.0 % Lymphocytes (%) (Auto) 1.2 L 10.0-50.0 % Monocytes (%) (Auto) 5.2 0.0-12.0 % Eosinophils (%) (Auto) 0.0 0.0-7.0 % Basophils (%) (Auto) 0.1 0.0-2.0 % Neutrophils # (Auto) 14.4 H 1.6-8.6 10 ^3/uL Lymphocytes # (Auto) 0.2 L 0.4-5.4 10 ^3/uL Monocytes # (Auto) 0.8 0-1.3 10 ^3/uL Eosinophils # (Auto) 0 0-0.8 10 ^3/uL Basophils # (Auto) 0 0-0.2 10 ^3/uL Nucleated Red Blood Cells 0.0 % Sodium Level 132 L 136-145 mmol/L Potassium Level 4.1 3.5-5.1 mmol/L Chloride Level 101 98-107 mmol/L Carbon Dioxide Level 22 20-31 mmol/L Anion Gap 9 5-15 Blood Urea Nitrogen 44 H 9-23 mg/dL Creatinine 2.55 H 0.700-1.30 mg/dL Glomerular Filtration Rate Calc 27 >90 mL/min BUN/Creatinine Ratio 17.3 10.0-20.0 Serum Glucose 160 H 74-106 mg/dL Lactic Acid Level 2.1 *H 0.4-2.0 mmol/L Calcium Level 9.1 8.7-10.4 mg/dL Total Bilirubin 0.6 0.2-1.0 mg/dL Aspartate Amino Transferase (AST) 10 L 13-40 U/L Alanine Aminotransferase (ALT) 17 7-40 U/L Alkaline Phosphatase 52 46-116 U/L Total Protein 6.8 5.7-8.2 g/dL Albumin 3.8 3.2-4.8 g/dL Primary Diagnosis Bilateral lower lung pneumonia ZAN on CKD Acute hypoxic likely due to pneumonia Plan Vanco, Zosyn, doxycycline for broad-spectrum antibiotics for pneumonia Check sputum culture, blood culture Chest x-ray shows bilateral lung infiltrate Check CT of chest to assess for pneumonia. if no signs of infection, suspect copd check vbg duo nebs q.6 hours standing Check CRP, procalcitonin Urine sodium, urine creatinine, kidney ultrasound Nephrology consult Resume home meds Full code Heparin for DVT prophylaxis PPI for GI prophylaxis Regular diet Plan discussed with: Patient Problems List: (1) Acute kidney injury superimposed on CKD (2) Pneumonia Status: Acute (3) Respiratory failure Status: Acute (4) Altered level of consciousness Status: Acute (5) Sepsis Status: Acute Date of Service: Oct 01, 2024 Billing Provider: TUNDE HARLEY MD Common Visit Codes: 97677-[id number] INP/OBS CARE (HIGH) TUNDE HARLEY MD Oct 01, 2024 16:53
--- NOTE | 2024-10-01 17:33 | DVH ---
INDICATION: ZAN on CKD TECHNIQUE: Multiple real-time sonographic images of the kidneys and bladder were obtained. COMPARISON: None FINDINGS: Right kidney has normal corticomedullary differentiation and measures 13.13 cm in length which is lar louise than normal for adult male. Maximum normal adult male renal length is 13 cm. There are no stones cysts or hydronephrosis involving the right kidney. Bladder is contracted and grossly thickened bladder has a volume of 26.5 mL in the mucosa measures 7 mm in thickness which is abnormal. There is hyperdense material probably inspissation or early stone formation involving the inferior bladder. Measures approximately 10 x 13 mm. Left kidney has very irregular cortex is enlarged measuring 13.31 cm in length cortex appears to be t hinned measuring no more than 13 mm which is borderline. There round shadowing nodule in the interpol ar region of the left kidney measuring approximately 2 cm in size. There are no stones or hydronephro sis involving either kidney. IMPRESSION: 1. Possible soft tissue mass measuring 2 cm in size involving the interpolar region of the left kidne y. Both kidneys are enlarged beyond normal limits. Follow-up MRI examination may be helpful. Also possib le bladder stone or calcified nodule developing in the inferior bladder. Bladder mucosa is also thick ened beyond normal limits. Any follow-up MRI should also include the pelvis
[2024-10-01 17:34] LABS: Rapid Influenza A Negative (Negative); Rapid Influenza B Negative (Negative)
[2024-10-01 17:35] LABS: COVID19 ANTIGEN SOFIA FIA NEGATIVE (NEGATIVE)
[2024-10-01] MEDS: IPRATROPIUM BROM 0.5 MG/2.5ML INH SOL NEB SCH (18:00)
[2024-10-01] MEDS: ALBUTEROL SULF 2.5 MG/0.5ML(0.5%) NEB SOLN NEB SCH (18:00)
[2024-10-01] MEDS: ACCU-CHEK COMFORT CURVE STRIP VI SCH (18:01)
--- NOTE | 2024-10-01 18:04 | DVH ---
Procedure: CT CHEST WITHOUT CONTRAST Study Date and Requested Time: 10/01 05:20 PM History: Assess severity of pneumonia Comparison: CT angio chest of 08/01/2024 Dose: CTDI: 29.2 mGy DLP: 996.1 mGycm Technique: Multiplanar images obtained through the chest without contrast. Findings: The thyroid gland is unremarkable. Mild cardiomegaly. Ectatic ascending aorta measuring up to 4.5 cm. Dilatation of the pulmonary trunk up to 4.2 cm. Shotty mediastinal lymph nodes. There is significant elevation of the right hemidiaphragm with right lower lobe consolidation. Left u pper and lower lobe linear atelectasis. No pneumothorax or pleural effusion. Partial view of the upper abdomen is unremarkable. The soft tissues unremarkable. Impression: Redemonstration of significant elevation of the right hemidiaphragm with associated right lower lobe opacity which most likely represent atelectasis. Pneumonia can not be excluded. Finding is unchanged from prior imaging.
[2024-10-01 18:40] VITALS: PULSE 82; RESP 16; O2SAT 95
[2024-10-01 18:48] VITALS: PULSE 85; RESP 16; O2SAT 96
[2024-10-01] MEDS: PIPERACILLIN-TAZOB 3.375GM 100 ML IV ONE (18:49)
[2024-10-01 19:43] VITALS: PULSE 99; RESP 18; O2SAT 98
[2024-10-01 20:57] LABS: Urine Bacteria None Seen /hpf (None Seen)
[2024-10-01 21:16] LABS: Urine Amorphous Crystal FEW /hpf (None Seen); Urine Blood 1+ /uL (Negative); Urine Clarity Turbid (Clear); Urine Color Light-Yellow (Yellow); Urine Protein, UAD 1+ (Negative); Urine Specific Gravity 1.021 (1.001-1.035); Urine Squamous Epithelial Cell FEW /hpf (<5); Urine Urobilinogen Normal (Negative); Urine WBC 108 /HPF (0-3); Urine pH 5.5 (5.0-9.0)
[2024-10-01] MEDS: DOXYCYCLINE 100MG/100ML 100 ML IV SCH (21:17)
[2024-10-01 21:35] VITALS: RESP 18; O2SAT 98
[2024-10-01 21:42] LABS: Creatinine, Urine 88.61 mg/dL (30.0-125.0)
[2024-10-01] MEDS: SODIUM CHLOR 0.9% PF (SALINE LOCK) 10ML VIAL/SYR IV SCH (22:09)
[2024-10-01 23:00] VITALS: RESP 18; O2SAT 98
[2024-10-02] VITALS (14 sets, daily range): BP systolic 114–149; BP diastolic 66–76; PULSE 48–136; RESP 16–28; TEMP 98–98.8; O2SAT 91–98
[2024-10-02] MEDS: PIPERACILLIN-TAZOB 3.375GM 100 ML IV SCH (01:00)
[2024-10-02 05:04] LABS: Basophils # (auto) 0 10 ^3/uL (0-0.2); Basophils % (auto) 0.2 % (0.0-2.0); Eosinophils # (auto) 0 10 ^3/uL (0-0.8); Hematocrit 28.8 % (41.0-53.0); Hemoglobin 9.5 g/dL (13.5-17.5); Lymphocytes # (auto) 0.3 10 ^3/uL (0.4-5.4); Mean Corpuscular Volume 81.9 fL (80.0-100.0); Monocytes % (auto) 6.9 % (0.0-12.0); Neutrophils # (auto) 12.9 10 ^3/uL (1.6-8.6); Neutrophils % (auto) 90.9 % (37.0-80.0); Platelet Count (auto) 181 10^3/uL (140-450); Red Blood Cells 3.51 10^6/uL (4.5-5.90); Red Cell Distribution Width 17.1 % (11.8-14.3); White Blood Cell 14.2 10^3/uL (4.4-10.8)
[2024-10-02 05:33] LABS: Alanine Aminotransferase 19 U/L (7-40); Alkaline Phosphatase 50 U/L (46-116); Anion Gap 9 (5-15); Aspartate Aminotransferase 14 U/L (13-40); BUN/Creatinine Ratio 18.1 (10.0-20.0); Carbon Dioxide 22 mmol/L (20-31); Chloride 101 mmol/L (98-107); Potassium 4.2 mmol/L (3.5-5.1); Total Protein 6.5 g/dL (5.7-8.2)
[2024-10-02 05:34] LABS: Albumin 3.5 g/dL (3.2-4.8); Bilirubin, Total 0.7 mg/dL (0.2-1.0)
[2024-10-02 05:43] LABS: Blood Urea Nitrogen 44 mg/dL (9-23); Glucose 118 mg/dL (74-106); Sodium 132 mmol/L (136-145)
[2024-10-02] MEDS ORDERED: ACETAMINOPHEN 650 MG RECT SUPP PR PRN (08:00)
[2024-10-02] MEDS: levETIRAcetam INJ 750 MG in SODIUM CHL 0.9% 100 ML IV SCH (09:56)
[2024-10-02] MEDS ORDERED: AZITHROMYCIN 500MG/ 250ML 250 ML IV SCH (10:00)
--- NOTE | 2024-10-02 10:48 | DVHCONRES ---
Date Seen: Oct 02, 2024 Resident Creating Document: KENZIE IVY RESIDENT Referring Physician Reason for Consultation mandie History of Present Illness 68 year old male patient with past medical history including sliding hiatal hernia, COPD, atrial fibrillation, coronary artery disease, hypertension, seizures, obesity, chronic hypoxia, possible dementia) Alzheimer, post stroke cognitive decline, chronic brain injury ) presents from [facility] with a chief complaint of low-grade fever, shortness of breaths and tachypnea and tachycardia. These symptoms are concerning for a lower respiratory tract infection particularly in the context of unknown history of COPD, deconditioning on chronic respiratory failure on baseline 2 L nasal cannula. Patient was previously hospitalized in July 2024 for COPD exacerbation with hemoptysis and community-acquired pneumonia. He was treated and discharged to the nursing facility. At baseline the patient is bedridden and nonverbal or minimally communicative, making him a poor historian. Today facility motor vehicle representative provided most of the history. Based on the concern for sepsis d to pneumonia current treatment includes broad- spectrum antibiotics. There is noted acute kidney injury likely secondary to sepsis related hypoperfusion. Allergies: Coded Allergies: NO KNOWN ALLERGIES (Unverified , 07/31/24) Home Meds Active Scripts Metoprolol Tartrate (Lopressor) 25 Mg Tb, 12.5 MG PO BID for 30 Days, #30 TAB 2 Refills Prov:JOHN VENTURA DO 08/05/24 Nifedipine (Nifedipine Er) 30 Mg Tab, 60 MG PO DAILY for 30 Days, #60 TAB 2 Refills Prov:JOHN VENTURA DO 08/05/24 Levetiracetam (KEPPRA TABLET) 500 Mg Tb, 750 MG PO BID for 30 Days, #90 TAB 2 Refills Prov:JOHN VENTURA DO 08/05/24 Current Medications Current Medications Medications (Trade) Dose Ordered Sig/Camelia Route PRN Reason Start Time Stop Time Status Last Admin Diagnostic Test (Pha) (Accu-Chek Comfort Curve T) 1 strip Q4HR 10/01/24 18:00 10/02/24 06:00 Vancomycin HCl 0 ml @ 0 mls/hr UD IV 10/01/24 16:45 Piperacillin Sod/ Tazobactam Sod 100 ml @ 25 mls/hr BID IV 10/02/24 01:00 10/02/24 01:00 Azithromycin 250 ml @ 125 mls/hr DAILY IV 10/02/24 10:00 10/01/24 16:42 DC Albuterol (Ventolin Medneb) 2.5 mg Q6H NEB 10/01/24 16:45 10/01/24 17:17 DC Ipratropium [place] (Atrovent Medneb) 0.5 mg Q6H NEB 10/01/24 16:45 10/01/24 17:17 DC Sodium Chloride (Saline Lock Ns) 10 ml Q8HR IV 10/01/24 22:00 10/02/24 06:00 Docusate Sodium (Colace Capsule) 100 mg BIDPRN PRN PO FOR CONSTIPATION 10/01/24 16:45 Acetaminophen (Tylenol Tablet) 650 mg Q6HP PRN PO PAIN SCALE 1-3 OR TEMP>100.4 10/01/24 16:45 Acetaminophen/ Hydrocodone Bitart ([place] 5/325MG Tab) 1 tab Q4HP PRN PO MODERATE PAIN (4-6 PAIN SCALE) 10/01/24 16:45 Ondansetron HCl (Zofran) 4 mg Q4HP PRN IV NAUSEA / VOMITING 10/01/24 16:45 Doxycycline Hyclate 100 ml @ 50 mls/hr BID IV 10/01/24 19:00 10/02/24 10:26 Albuterol (Ventolin Medneb) 2.5 mg Q6H NEB 10/01/24 18:00 10/02/24 06:09 Ipratropium [place] (Atrovent Medneb) 0.5 mg Q6H NEB 10/01/24 18:00 10/02/24 06:09 Levetiracetam 750 mg/Sodium Chloride 107.5 ml @ 107.5 mls/ hr BID IV 10/02/24 10:00 10/02/24 09:56 Acetaminophen (Tylenol Suppository) 650 mg Q6HP PRN CO PAIN SCALE 1-3 OR TEMP>100.4 10/02/24 08:00 Review of Systems Limited due to patient's mental status. Vital Signs Vital Signs Date Time Temp Pulse Resp B/P (MAP) Pulse Ox O2 Delivery O2 Flow Rate FiO2 10/02/24 09:01 101 16 127/64 (85) 95 10/02/24 07:36 Nasal Cannula* 2 28 10/02/24 07:36 100.2 100.2 Physical Exam General: Lying in bed, chronically ill-appearing, no acute distress. Cardiovascular: Tachycardic, irregular rate and rhythm, no murmurs. Respiratory: Tachypnea, decreased breath sounds and bilateral lower lung lux, no rales Extremities: Bilateral lower extremity swelling, no erythema or warmth, dark discoloration in the lower extremities. Skin: No rash, wounds, or ecchymosis noted. Neuro: Limited exam due to altered mental status. Moves all extremities spontaneously and follows some commands inconsistently. Labs/Diagnostic Data Labs Test 10/02/24 05:13 10/02/24 04:50 10/01/24 20:55 10/01/24 19:01 Range/Units POC Glucose 112 H 70-106 mg/dl White Blood Count 14.2 H 4.4-10.8 10^3/uL Red Blood Count 3.51 L 4.5-5.90 10^6/uL Hemoglobin 9.5 L 13.5-17.5 g/dL Hematocrit 28.8 L 41.0-53.0 % Mean Corpuscular Volume 81.9 80.0-100.0 fL Mean Corpuscular Hemoglobin 27.0 L 28.0-32.0 pg Mean Corpuscular Hemoglobin Concent 33.0 32.0-36.0 g/dL Red Cell Distribution Width 17.1 H 11.8-14.3 % Platelet Count 181 140-450 10^3/uL Mean Platelet Volume 10.1 6.9-10.8 fL Neutrophils (%) (Auto) 90.9 H 37.0-80.0 % Lymphocytes (%) (Auto) 2.0 L 10.0-50.0 % Monocytes (%) (Auto) 6.9 0.0-12.0 % Eosinophils (%) (Auto) 0.0 0.0-7.0 % Basophils (%) (Auto) 0.2 0.0-2.0 % Neutrophils # (Auto) 12.9 H 1.6-8.6 10 ^3/uL Lymphocytes # (Auto) 0.3 L 0.4-5.4 10 ^3/uL Monocytes # (Auto) 1.0 0-1.3 10 ^3/uL Eosinophils # (Auto) 0 0-0.8 10 ^3/uL Basophils # (Auto) 0 0-0.2 10 ^3/uL Nucleated Red Blood Cells 0.0 % Sodium Level 132 L 136-145 mmol/L Potassium Level 4.2 3.5-5.1 mmol/L Chloride Level 101 98-107 mmol/L Carbon Dioxide Level 22 20-31 mmol/L Anion Gap 9 5-15 Blood Urea Nitrogen 44 H 9-23 mg/dL Creatinine 2.43 H 0.700-1.30 mg/dL Glomerular Filtration Rate Calc 28 >90 mL/min BUN/Creatinine Ratio 18.1 10.0-20.0 Serum Glucose 118 H 74-106 mg/dL Calcium Level 9.0 8.7-10.4 mg/dL Total Bilirubin 0.7 0.2-1.0 mg/dL Aspartate Amino Transferase (AST) 14 13-40 U/L Alanine Aminotransferase (ALT) 19 7-40 U/L Alkaline Phosphatase 50 46-116 U/L Total Protein 6.5 5.7-8.2 g/dL Albumin 3.5 3.2-4.8 g/dL Random Vancomycin Level 10.5 H 5-10 ug/mL Urine Color Light-yellow Yellow Urine Clarity Turbid H Clear Urine pH 5.5 5.0-9.0 Urine Specific [place] 1.021 1.001-1.035 Urine Protein 1+ H Negative Urine Ketones Negative Negative Urine Blood 1+ H Negative /uL Urine Nitrite Negative Negative Urine Bilirubin Negative Negative Urine Urobilinogen Normal Negative mg/dL Urine Leukocyte Esterase 2+ Negative /uL Urine RBC 81 0 - 3 /hpf Urine Microscopic WBC 108 H 0-3 /HPF Urine Squamous Epithelial Cells Few <5 /hpf Urine Amorphous Crystals Few None Seen /hpf Urine Bacteria None seen None Seen /hpf Urine Creatinine 88.61 30.0-125.0 mg/dL Urine Sodium 31 L 40-220 mmol/L Urine Glucose Normal Normal mg/dL C-Reactive Protein High Sensitivity > 20.00 H <1.0 mg/dL Test 10/01/24 18:15 10/01/24 16:55 10/01/24 15:17 10/01/24 14:15 Range/Units Lactic Acid Level 1.7 0.4-2.0 mmol/L Troponin I High Sensitivity 15 </=54 ng/L Blood Gas Specimen Type Venous Blood Gas Sample Site Vbg - n/a Blood Gas Patient Temperature 37.0 Arterial Blood Date Drawn [id number] Jr Test N/a Venous Blood pH 7.401 7.320-7.430 Venous Blood pCO2 at Patient Temp 34.7 L 38.0-54.0 mmHg Venous Blood pO2 at Patient Temp 44.4 23.0-48.0 mmHg Venous Blood HCO3 21.1 L 22.0-29.0 mmol/L Venous Blood Base Excess -2.9 L -2.0-3.0 mmol/L Blood Gas Liter Flow 2.00 Blood Gas Modality Nasal cannula FiO2 % 28.0 Magnesium Level 1.8 1.6-2.6 mg/dL Influenza Type A Antigen Negative Negative Influenza Type B Antigen Negative Negative SARS-CoV-2 Antigen (Rapid) Negative NEGATIVE Test 10/01/24 14:13 Range/Units B-Type Natriuretic Peptide 74.26 0-100 pg/mL Microbiology Date/Time Source Procedure Growth Status 10/01/24 14:11 Blood Blood Culture - Preliminary Resulted Assessment Sepsis likely due to community-acquired pneumonia Acute kidney injury secondary due to sepsis and hypotension COPD Cognitive impairment likely multifactorial due to vascular dementia, post stroke state, Alzheimer disease Seizure disorder Atrial fibrillation with RVR Mild hyponatremia Multiple PVCs Possible soft tissue mass measuring 2 cm in the left kidney. right hemidiaphragm elevation with associated right lower lobe opacity which most likely represent atelectasis Plan: Continue antibiotic treatment Continue fluid resuscitation with normal saline 0.9% Monitor electrolytes and replace as needed Consider cardiology consult EKGs Maintain IV fluid normal saline 0.9% 75 mL Case discussed with Dr. Schroeder Code status: Full code Plan discussed with: Patient, Other KENZIE IVY RESIDENT Oct 02, 2024 10:48 ALBERTO SCHROEDER MD Oct 02, 2024 16:13
--- NOTE | 2024-10-02 12:19 | ECG ---
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
--- NOTE | 2024-10-02 12:57 | DVHPN2 ---
Reviewed: Care Plan, H&P, Labs, Medications, Previous Orders, Radiology Changes from previous H/P or p: No Changes Objective Vitals Vital Signs Date Time Temp Pulse Resp B/P (MAP) Pulse Ox O2 Delivery O2 Flow Rate FiO2 10/02/24 11:40 107 18 98 10/02/24 11:35 Nasal Cannula* 2 28 10/02/24 11:00 99.5 128/74 (92) 99.5 Intake/Output Intake and Output 10/02/24 07:00 Intake Total 1750 ml Balance 1750 ml Intake IV Total 1750 ml Medications Current Medications Medications Dose Ordered Sig/Camelia Route Start Time Stop Time Status Last Admin Dose Admin Diagnostic Test (Pha) 1 strip Q4HR 10/01/24 18:00 10/02/24 10:55 1 STRIP Vancomycin HCl 0 ml @ 0 mls/hr UD IV 10/01/24 16:45 Piperacillin Sod/ Tazobactam Sod 100 ml @ 25 mls/hr BID IV 10/02/24 01:00 10/02/24 11:55 25 MLS/HR Sodium Chloride 10 ml Q8HR IV 10/01/24 22:00 10/02/24 06:00 10 ML Docusate Sodium 100 mg BIDPRN PRN PO 10/01/24 16:45 Acetaminophen 650 mg Q6HP PRN PO 10/01/24 16:45 Acetaminophen/ Hydrocodone Bitart 1 tab Q4HP PRN PO 10/01/24 16:45 Ondansetron HCl 4 mg Q4HP PRN IV 10/01/24 16:45 Doxycycline Hyclate 100 ml @ 50 mls/hr BID IV 10/01/24 19:00 10/02/24 10:26 50 MLS/HR Albuterol 2.5 mg Q6H NEB 10/01/24 18:00 10/02/24 11:35 2.5 MG Ipratropium [place] 0.5 mg Q6H NEB 10/01/24 18:00 10/02/24 11:35 0.5 MG Levetiracetam 750 mg/Sodium Chloride 107.5 ml @ 107.5 mls/ hr BID IV 10/02/24 10:00 10/02/24 09:56 107.5 MLS/HR Acetaminophen 650 mg Q6HP PRN RI 10/02/24 08:00 Sodium Chloride 1,000 ml @ 75 mls/hr [id number] IV 10/02/24 12:30 UNV Laboratory Results Laboratory Tests 10/02/24 04:50 Chemistry Test 10/01/24 14:12 10/01/24 15:17 10/02/24 04:50 Albumin 3.8 g/dL (3.2-4.8) 3.5 g/dL (3.2-4.8) Calcium Level 9.1 mg/dL (8.7-10.4) 9.0 mg/dL (8.7-10.4) Total Protein 6.8 g/dL (5.7-8.2) 6.5 g/dL (5.7-8.2) Magnesium Level 1.8 mg/dL (1.6-2.6) Phosphorus Level 3.4 mg/dL (2.4-5.1) Cardiac Markers Test 10/01/24 14:13 B-Type Natriuretic Peptide 74.26 pg/mL (0-100) LFT Test 10/01/24 14:12 10/02/24 04:50 Alanine Aminotransferase (ALT) 17 U/L (7-40) 19 U/L (7-40) Alkaline Phosphatase 52 U/L (46-116) 50 U/L (46-116) Aspartate Amino Transferase (AST) 10 U/L (13-40) L 14 U/L (13-40) Total Bilirubin 0.6 mg/dL (0.2-1.0) 0.7 mg/dL (0.2-1.0) HgA1c, TSH Test 10/02/24 04:50 Hemoglobin A1c 4.8 % A1C (<5.7) Urinalysis Test 10/01/24 20:55 Urine Color Light-yellow (Yellow) Urine Clarity Turbid (Clear) H Urine pH 5.5 (5.0-9.0) Urine Specific [place] 1.021 (1.001-1.035) Urine Protein 1+ (Negative) H Urine Ketones Negative (Negative) Urine Blood 1+ /uL (Negative) H Urine Nitrite Negative (Negative) Urine Bilirubin Negative (Negative) Urine Urobilinogen Normal mg/dL (Negative) Urine Leukocyte Esterase 2+ /uL (Negative) Urine RBC 81 /hpf (0 - 3) Urine Microscopic WBC 108 /HPF (0-3) H Urine Squamous Epithelial Cells Few /hpf (<5) Urine Amorphous Crystals Few /hpf (None Seen) Urine Bacteria None seen /hpf (None Seen) Urine Creatinine 88.61 mg/dL (30.0-125.0) Urine Sodium 31 mmol/L (40-220) L Urine Glucose Normal mg/dL (Normal) Blood Gas Results Test 10/01/24 16:55 FiO2 % 28.0 Microbiology Microbiology Date/Time Source Procedure Growth Status 10/01/24 14:11 Blood Blood Culture - Preliminary Resulted Labs and/or images reviewed: Labs reviewed by me, Image(s) reviewed by me Assessment/Plan Assessment/Plan Sepsis secondary to community-acquired pneumonia: Blood cultures sputum cultures continue vancomycin Zosyn doxycycline Acute on chronic hypoxic respiratory failure: Oxygen by nasal cannula Briana test negative Flu test negative Use of home oxygen Acute urinary tract infection: Urine cultures Rocephin History of GI bleed History of blood loss anemia Acute on chronic COPD exacerbation Coronary artery disease Hypertension Seizures: Keppra Dementia Acute lactic acidosis Acute kidney injury with BUN creatinine 44/2.55: Nephrology consult Patient is hospice revoked Patient was transferred from [facility] Time spent 70 minutes Advanced care time 20 minutes Prognosis is grave Plan discussed with: Patient Date of Service: Oct 02, 2024 Billing Provider: JEANIE VERMA MD Common Visit Codes: [id number] CARE 30-74 MIN JEANIE VERMA MD Oct 02, 2024 12:57
[2024-10-02] MEDS: SODIUM CHLORIDE 0.9% 1,000 ML IV SCH (14:56)
[2024-10-02 18:33] LABS: Protein, Urine 204.5 mg/dL (1-14)
[2024-10-02 18:36] LABS: Creatinine, Urine 85.4 mg/dL (30.0-125.0); Urine Protein/Creatinine Ratio 2.39
--- NOTE | 2024-10-02 18:46 | ECG ---
[facility] Test Date: 2024-10-02 Test Time: 18:44:03 Pat Name: BRODY CHOWDHURY Department: Respiratoy Room: 0246T Gender: M Planning Management It Specialist: MADAI : 1955 Requested By: KENZIE DE OLIVEIRA Order Number: [id number] Reading MD: Balta Barry Measurements Intervals [place] Rate: 118 P: 0 IA: 0 QRS: -21 QRSD: 107 T: 97 QT: 318 QTc: 446 Interpretive Statements sinus rhythm with premature atrial contractions and unifocal PVCs Paired ventricular premature complexes Inferior infarct, old Consider anterior infarct Lateral leads are also involved Electronically Signed On 10-03-2024 20:36:31 PDT by Balta Barry Please click the below link to view image of tracing.
[2024-10-02] MEDS: HYDROcodone-ACET 5/325MG TAB PO PRN (22:51)
[2024-10-02 23:55] LABS: Eosinophils # (auto) 0 10 ^3/uL (0-0.8); Eosinophils % (auto) 0.1 % (0.0-7.0); Hemoglobin 9.2 g/dL (13.5-17.5); Lymphocytes # (auto) 0.3 10 ^3/uL (0.4-5.4); Monocytes # (auto) 0.9 10 ^3/uL (0-1.3); White Blood Cell 12.4 10^3/uL (4.4-10.8)
[2024-10-02 23:56] LABS: Basophils # (auto) 0.1 10 ^3/uL (0-0.2); Basophils % (auto) 0.4 % (0.0-2.0); Hematocrit 28.1 % (41.0-53.0); Lymphocytes % (auto) 2.5 % (10.0-50.0); Mean Corpuscular Hemoglobin 27.1 pg (28.0-32.0); Mean Corpuscular Hgb Conc. 32.7 g/dL (32.0-36.0); Mean Corpuscular Volume 82.9 fL (80.0-100.0); Monocytes % (auto) 7.3 % (0.0-12.0); Neutrophils # (auto) 11.1 10 ^3/uL (1.6-8.6); Neutrophils % (auto) 89.7 % (37.0-80.0); Nucleated Red Blood Cells % 0.1 %; Platelet Count (auto) 209 10^3/uL (140-450); Red Blood Cells 3.39 10^6/uL (4.5-5.90); Red Cell Distribution Width 17.5 % (11.8-14.3)
[2024-10-03] VITALS (16 sets, daily range): BP systolic 97–142; BP diastolic 53–82; PULSE 44–121; RESP 16–26; TEMP 97.6–98.9; O2SAT 91–100
[2024-10-03 00:18] LABS: Alanine Aminotransferase 22 U/L (7-40); Albumin 3.6 g/dL (3.2-4.8); Alkaline Phosphatase 57 U/L (46-116); Anion Gap 10 (5-15); Aspartate Aminotransferase 27 U/L (13-40); BUN/Creatinine Ratio 20.2 (10.0-20.0); Calcium 9.1 mg/dL (8.7-10.4); Carbon Dioxide 21 mmol/L (20-31); Chloride 104 mmol/L (98-107); Magnesium 2.1 mg/dL (1.6-2.6); Potassium 3.9 mmol/L (3.5-5.1); Total Protein 6.5 g/dL (5.7-8.2)
[2024-10-03 00:19] LABS: Bilirubin, Total 0.8 mg/dL (0.2-1.0)
[2024-10-03 00:35] LABS: Blood Urea Nitrogen 45 mg/dL (9-23); Glucose 116 mg/dL (74-106); Sodium 135 mmol/L (136-145)
[2024-10-03 00:40] LABS: Base Excess -3.1 mmol/L (-2.0-3.0)
[2024-10-03 06:06] LABS: Basophils # (auto) 0 10 ^3/uL (0-0.2); Basophils % (auto) 0.4 % (0.0-2.0); Eosinophils # (auto) 0 10 ^3/uL (0-0.8); Eosinophils % (auto) 0.3 % (0.0-7.0); Hematocrit 27.5 % (41.0-53.0); Lymphocytes # (auto) 0.3 10 ^3/uL (0.4-5.4); Lymphocytes % (auto) 2.6 % (10.0-50.0); Mean Corpuscular Hemoglobin 27.1 pg (28.0-32.0); Mean Corpuscular Hgb Conc. 32.6 g/dL (32.0-36.0); Mean Corpuscular Volume 82.9 fL (80.0-100.0); Monocytes % (auto) 8.6 % (0.0-12.0); Neutrophils # (auto) 10.3 10 ^3/uL (1.6-8.6); Neutrophils % (auto) 88.1 % (37.0-80.0); Platelet Count (auto) 215 10^3/uL (140-450); Red Blood Cells 3.31 10^6/uL (4.5-5.90); Red Cell Distribution Width 17.5 % (11.8-14.3); White Blood Cell 11.7 10^3/uL (4.4-10.8)
[2024-10-03 06:23] LABS: Alanine Aminotransferase 26 U/L (7-40); Albumin 3.5 g/dL (3.2-4.8); Alkaline Phosphatase 65 U/L (46-116); Anion Gap 9 (5-15); Aspartate Aminotransferase 31 U/L (13-40); Calcium 9.1 mg/dL (8.7-10.4); Carbon Dioxide 22 mmol/L (20-31); Chloride 105 mmol/L (98-107); Potassium 3.8 mmol/L (3.5-5.1)
[2024-10-03 06:24] LABS: BUN/Creatinine Ratio 20.8 (10.0-20.0); Glucose 97 mg/dL (74-106)
[2024-10-03 06:25] LABS: Total Protein 6.4 g/dL (5.7-8.2)
[2024-10-03 06:26] LABS: Bilirubin, Total 0.9 mg/dL (0.2-1.0)
[2024-10-03 06:40] LABS: Blood Urea Nitrogen 45 mg/dL (9-23); Sodium 136 mmol/L (136-145)
[2024-10-03] MEDS: DOCUSATE SOD 100 MG CAP PO PRN (09:00)
--- NOTE | 2024-10-03 10:09 | DVHPN2 ---
Reviewed: Care Plan, H&P, Labs, Medications, Previous Orders, Radiology Changes from previous H/P or p: No Changes Objective Vitals Vital Signs Date Time Temp Pulse Resp B/P (MAP) Pulse Ox O2 Delivery O2 Flow Rate FiO2 10/03/24 07:30 26 Nasal Cannula* 2 28 10/03/24 07:06 61 98 10/03/24 05:00 98.2 141/67 (91) 98.2 Intake/Output Intake and Output 10/03/24 07:00 Intake Total 755.0 ml Output Total 2200 ml Balance -1445.0 ml Intake Oral 240 ml IV Total 515.0 ml Output Urine Total 2200 ml Medications Current Medications Medications Dose Ordered Sig/Camelia Route Start Time Stop Time Status Last Admin Dose Admin Diagnostic Test (Pha) 1 strip Q4HR 10/01/24 18:00 10/03/24 06:36 1 STRIP Piperacillin Sod/ Tazobactam Sod 100 ml @ 25 mls/hr BID IV 10/02/24 01:00 10/02/24 21:22 25 MLS/HR Sodium Chloride 10 ml Q8HR IV 10/01/24 22:00 10/03/24 06:36 10 ML Docusate Sodium 100 mg BIDPRN PRN PO 10/01/24 16:45 10/03/24 09:00 100 MG Acetaminophen 650 mg Q6HP PRN PO 10/01/24 16:45 Acetaminophen/ Hydrocodone Bitart 1 tab Q4HP PRN PO 10/01/24 16:45 10/03/24 08:59 1 TAB Ondansetron HCl 4 mg Q4HP PRN IV 10/01/24 16:45 Albuterol 2.5 mg Q6H NEB 10/01/24 18:00 10/03/24 07:00 2.5 MG Ipratropium [place] 0.5 mg Q6H NEB 10/01/24 18:00 10/03/24 07:00 0.5 MG Levetiracetam 750 mg/Sodium Chloride 107.5 ml @ 107.5 mls/ hr BID IV 10/02/24 10:00 10/02/24 22:45 107.5 MLS/HR Acetaminophen 650 mg Q6HP PRN MA 10/02/24 08:00 Sodium Chloride 1,000 ml @ 75 mls/hr [id number] IV 10/02/24 12:30 10/02/24 19:45 75 MLS/HR Laboratory Results Laboratory Tests 10/03/24 05:41 Chemistry Test 10/02/24 23:47 10/03/24 05:41 Albumin 3.6 g/dL (3.2-4.8) 3.5 g/dL (3.2-4.8) Calcium Level 9.1 mg/dL (8.7-10.4) 9.1 mg/dL (8.7-10.4) Magnesium Level 2.1 mg/dL (1.6-2.6) Total Protein 6.5 g/dL (5.7-8.2) 6.4 g/dL (5.7-8.2) LFT Test 10/02/24 23:47 10/03/24 05:41 Alanine Aminotransferase (ALT) 22 U/L (7-40) 26 U/L (7-40) Alkaline Phosphatase 57 U/L (46-116) 65 U/L (46-116) Aspartate Amino Transferase (AST) 27 U/L (13-40) 31 U/L (13-40) Total Bilirubin 0.8 mg/dL (0.2-1.0) 0.9 mg/dL (0.2-1.0) Urinalysis Test 10/01/24 20:55 10/02/24 17:35 Urine Color Light-yellow (Yellow) Urine Clarity Turbid (Clear) H Urine pH 5.5 (5.0-9.0) Urine Specific [place] 1.021 (1.001-1.035) Urine Protein 1+ (Negative) H Urine Ketones Negative (Negative) Urine Blood 1+ /uL (Negative) H Urine Nitrite Negative (Negative) Urine Bilirubin Negative (Negative) Urine Urobilinogen Normal mg/dL (Negative) Urine Leukocyte Esterase 2+ /uL (Negative) Urine RBC 81 /hpf (0 - 3) Urine Microscopic WBC 108 /HPF (0-3) H Urine Squamous Epithelial Cells Few /hpf (<5) Urine Amorphous Crystals Few /hpf (None Seen) Urine Bacteria None seen /hpf (None Seen) Urine Sodium 31 mmol/L (40-220) L Urine Glucose Normal mg/dL (Normal) Urine Osmolality 507 mOsm/kg Urine Creatinine 85.40 mg/dL (30.0-125.0) Urine Protein/Creatinine Ratio 2.39 Urine Total Protein 204.5 mg/dL (1-14) H Blood Gas Results Test 10/03/24 00:32 Arterial Blood pH 7.443 (7.350-7.450) FiO2 % 28.0 Microbiology Microbiology Date/Time Source Procedure Growth Status 10/01/24 14:11 Blood Blood Culture - Preliminary Resulted Labs and/or images reviewed: Labs reviewed by me, Image(s) reviewed by me Assessment/Plan Assessment/Plan Sepsis secondary to community-acquired pneumonia: Blood cultures sputum cultures continue Zosyn, DC vancomycin and doxycycline Bacteremic Gram-negative rods: Continue Zosyn until final result Acute metabolic encephalopathy Acute on chronic hypoxic respiratory failure: Oxygen by nasal cannula Briana test negative Flu test negative Use of home oxygen Acute urinary tract infection: Urine cultures Rocephin History of GI bleed History of blood loss anemia History of traumatic brain injury Possible AFib: Consult for Dr. Barry Acute on chronic COPD exacerbation Coronary artery disease Hypertension Seizures: Keppra Dementia Acute lactic acidosis Acute kidney injury with BUN creatinine 44/2.55: Nephrology consult Patient is hospice revoked : Social service consult Patient was transferred from [facility] Time spent 50 minutes Prognosis is grave Plan discussed with: Patient My Orders Orders - JEANIE VERMA MD Procedure Category Date Status Time Urine Bacterial DEMETRIUS 10/02/24 In Process Culture 12:58 Mrsa Screen DEMETRIUS 10/02/24 In Process 17:27 * Wound Consult CONS 10/02/24 Transmitted * Dietary Consult CONS 10/03/24 Transmitted 02:18 Date of Service: Oct 03, 2024 Billing Provider: JEANIE VERMA MD Common Visit Codes: [id number] CARE 30-74 MIN JEANIE VERMA MD Oct 03, 2024 10:09
--- NOTE | 2024-10-03 10:53 | DVH ---
EXAM: CT HEAD WITHOUT CONTRAST INDICATION: Altered mental status TECHNIQUE: CT of the head without intravenous contrast. Coronal and sagittal reformatted images are s ubmitted. Radiation Dose : 1. Head: CT Dose: CTDI volume is 69.8 mGy. Dose-length product is 1374.3 mGy*cm The dose indicators for CT are the volume Computed Tomography (CT) Dose Index (CTDIvol) and the Dose Length Product (DLP), and are measured in units of mGy and mGy-cm, respectively. These indicators are not patient dose, but values generated from the CT scanner acquisition factors. The report includes radiation exposure data for exposures received during this examination. All CT scans at this medical facility are performed using dose modulation techniques as appropriate to a performed exam including the following: Automated exposure control was utilized; adjustment of the MA and/or KV according to patient size; and use of iterative reconstruction technique. COMPARISON: CT HEAD WITHOUT CONTRAST on DOS: 08/02/24 FINDINGS: There is no evidence of acute intracranial hemorrhage, extra-axial collection, mass effect, midline s hift, herniation or hydrocephalus. Encephalomalacia in the left frontal lobe. There are periventricular and subcortical hypodensities, nonspecific, but likely reflecting sequelae of chronic microvascular ischemic changes. The ventricles, sulci and cisterns are age appropriate. The low-white differentiation is intact. The visualized paranasal sinuses and mastoid air cells are clear. No depressed calvarial fracture. The surrounding soft tissues are unremarkable. Left frontal cranioto my postsurgical change. IMPRESSION: 1. No evidence of acute intracranial abnormality.
--- NOTE | 2024-10-03 11:06 | DVHINCON2 ---
Date Seen: Oct 03, 2024 Referring Physician MD Dmitry Reason for Consultation New onset Afib History of Present Illness This is a 68-year-old male patient who presents to the emergency room with chief complaint of generalized weakness, shortness of breath, and pyrexia for one day prior to emergency room arrival. The patient comes from a half-way facility. 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 History obtained from past medical records and bedside RN. The patient was recently seen at this facility and transferred to a half-way facility on 08/07/24. Cardiology has been consulted at this time for new onset atrial fibrillation. Initial twelve lead electrocardiogram reveals sinus tachycardia with frequent PVCs (machine reading atrial fibrillation). Patient noted to have episodes of paroxysmal atrial fibrillation after reviewing market development trainer. Initial troponin level of 16ng/L with flat trend thereafter. Significant past medical history includes hypertension, dyslipidemia, COPD on home oxygen, trau matic brain injury status post craniotomy, seizure disorder, and dementia. The patient also has questionable history of coronary artery disease. Medication reconciliation shows patient takes clopidogrel. Patient unable to verify if he has any history of coronary stents. Of note, patient also taking low-dose Eliquis. Patient unable to verify if he has any known history of atrial fibrillation. Past Medical History Past medical history reviewed. No other significant than mentioned above. Past Surgical History Craniotomy Family History Family history reviewed. Social History Unable to obtain Allergies: Coded Allergies: NO KNOWN ALLERGIES (Unverified , 07/31/24) Home Meds Active Scripts Metoprolol Tartrate (Lopressor) 25 Mg Tb, 12.5 MG PO BID for 30 Days, #30 TAB 2 Refills Prov:VENTURAJOHN Engel Candelario DO 08/05/24 Nifedipine (Nifedipine Er) 30 Mg Tab, 60 MG PO DAILY for 30 Days, #60 TAB 2 Refills Prov:SAIRA VENTURAMY Candelario DO 08/05/24 Levetiracetam (KEPPRA TABLET) 500 Mg Tb, 750 MG PO BID for 30 Days, #90 TAB 2 Refills Prov:AUDREYJOHN Candelario DO 08/05/24 Reported Medications Clopidogrel Bisulfate (CLOPIDOGREL) 75 Mg Tab, 1 TAB PO DAILY for 30 Days, #30 10/03/24 Memantine Hydrochloride (Memantine HCl) 5 Mg Tab, 1 TAB PO BID for 30 Days, #60 10/03/24 Quetiapine Fumerate (QUETIAPINE FUMARATE) 50 Mg Tab, 1 TAB PO DAILY for 30 Days, #30 10/03/24 Atorvastatin Calcium (ATORVASTATIN CALCIUM) 10 Mg Tab, 1 TAB PO DAILY for 30 Days, #30 10/03/24 Ezetimibe (Ezetimibe) 10 Mg Tab, 1 TAB PO DAILY for 30 Days, #30 10/03/24 Megestrol Acetate (Megestrol Acetate) 40 Mg Tab, 1 TAB PO DAILY for 30 Days, #30 10/03/24 Hydrocodone-Acetaminophen (Hydrocodone/Acetaminophen 5-325 mg) 1 Tab Tab, 1 TAB PO BID for 31 Days, #62 10/03/24 Home Meds Home medications reviewed. Current Medications Current Medications Medications (Trade) Dose Ordered Sig/Camelia Route PRN Reason Start Time Stop Time Status Last Admin Sodium Chloride 1,000 ml @ 75 mls/hr [id number] IV 10/02/24 12:30 10/02/24 19:45 Review of Systems Constitutional: Generalized weakness, pyrexia Ears, Nose, & Throat: No symptom reported Eyes: No symptom reported Neurological: No symptoms reported Pulmonary/Respiratory: Shortness of breath Cardiovascular: No symptom reported Gastrointestinal: No symptom reported Genitourinary: No symptom reported Musculoskeletal: No symptom reported Skin: No symptom reported Psychiatric: No symptom reported Endocrine: No symptom reported Hematologic/Lymphatic: No symptom reported Vital Signs Vital Signs Date Time Temp Pulse Resp B/P (MAP) Pulse Ox O2 Delivery O2 Flow Rate FiO2 10/03/24 07:30 26 Nasal Cannula* 2 28 10/03/24 07:06 61 98 10/03/24 05:00 98.2 141/67 (91) 98.2 Physical Exam General Appearance: Cooperative. Well-developed. Well-nourished. No acute distress. Pulmonary/Respiratory: Clear, bilateral breaths sounds. Cardiovascular/Chest: Diminished bilateral lower lobes Peripheral Pulses: 2+ Radial (R). 2+ Radial (L). 1+ Pedal (R). 1+ Pedal (L) Abdominal Exam: Normal bowel sounds. Ankle Exam: Negative ankle edema Lower extremities: Negative lower extremity edema Neuro/Mental Status: Aphasia Thoughts/Psych: Deferred Appearance: No acute distress. Skin Exam: Normal inspection. Normal color. Warm and dry. Labs/Diagnostic Data Labs Test 10/03/24 05:41 10/03/24 00:32 10/02/24 23:47 10/02/24 22:36 Range/Units White Blood Count 11.7 H 4.4-10.8 10^3/uL Red Blood Count 3.31 L 4.5-5.90 10^6/uL Hemoglobin 9.0 L 13.5-17.5 g/dL Hematocrit 27.5 L 41.0-53.0 % Mean Corpuscular Volume 82.9 80.0-100.0 fL Mean Corpuscular Hemoglobin 27.1 L 28.0-32.0 pg Mean Corpuscular Hemoglobin Concent 32.6 32.0-36.0 g/dL Red Cell Distribution Width 17.5 H 11.8-14.3 % Platelet Count 215 140-450 10^3/uL Mean Platelet Volume 10.1 6.9-10.8 fL Neutrophils (%) (Auto) 88.1 H 37.0-80.0 % Lymphocytes (%) (Auto) 2.6 L 10.0-50.0 % Monocytes (%) (Auto) 8.6 0.0-12.0 % Eosinophils (%) (Auto) 0.3 0.0-7.0 % Basophils (%) (Auto) 0.4 0.0-2.0 % Neutrophils # (Auto) 10.3 H 1.6-8.6 10 ^3/uL Lymphocytes # (Auto) 0.3 L 0.4-5.4 10 ^3/uL Monocytes # (Auto) 1.0 0-1.3 10 ^3/uL Eosinophils # (Auto) 0 0-0.8 10 ^3/uL Basophils # (Auto) 0 0-0.2 10 ^3/uL Nucleated Red Blood Cells 0.0 % Sodium Level 136 136-145 mmol/L Potassium Level 3.8 3.5-5.1 mmol/L Chloride Level 105 98-107 mmol/L Carbon Dioxide Level 22 20-31 mmol/L Anion Gap 9 5-15 Blood Urea Nitrogen 45 H 9-23 mg/dL Creatinine 2.16 H 0.700-1.30 mg/dL Glomerular Filtration Rate Calc 33 >90 mL/min BUN/Creatinine Ratio 20.8 H 10.0-20.0 Serum Glucose 97 74-106 mg/dL Calcium Level 9.1 8.7-10.4 mg/dL Total Bilirubin 0.9 0.2-1.0 mg/dL Aspartate Amino Transferase (AST) 31 13-40 U/L Alanine Aminotransferase (ALT) 26 7-40 U/L Alkaline Phosphatase 65 46-116 U/L Total Protein 6.4 5.7-8.2 g/dL Albumin 3.5 3.2-4.8 g/dL Blood Gas Specimen Type Arterial Blood Gas Sample Site Right radial Blood Gas Patient Temperature 37.0 Arterial Blood Date Drawn [id number] Arterial Blood pH 7.443 7.350-7.450 Arterial Blood Partial Pressure CO2 30.3 L 35.0-48.0 mmHg Arterial Blood Partial Pressure O2 65.7 L 83.0-108.0 mmHg Arterial Blood HCO3 20.3 L 21.0-28.0 mmol/L Arterial Blood Oxygen Saturation 92.0 L 94.0-98.0 % Arterial Blood Base Excess -3.1 L -2.0-3.0 mmol/L Arterial Blood Oxyhemoglobin 91.5 L 94.0-98.0 % Arterial Blood Carboxyhemoglobin 0.1 L 0.5-1.5 % Arterial Blood Methemoglobin 0.4 0.0-1.5 % Jr Test Yes Blood Gas Total Hemoglobin 10.20 L 13.5-17.5 g/dL Blood Gas Liter Flow 2.00 Blood Gas Modality Nasal cannula FiO2 % 28.0 Magnesium Level 2.1 1.6-2.6 mg/dL POC Glucose 125 H 70-106 mg/dl Test 10/02/24 17:35 10/02/24 04:50 10/01/24 20:55 10/01/24 19:01 Range/Units Urine Osmolality 507 mOsm/kg Urine Creatinine 85.40 30.0-125.0 mg/dL Urine Protein/Creatinine Ratio 2.39 Urine Total Protein 204.5 H 1-14 mg/dL Hemoglobin A1c 4.8 <5.7 % A1C Phosphorus Level 3.4 2.4-5.1 mg/dL Parathyroid Hormone (Intact) 82.4 H 18.4-80.1 pg/mL Random Vancomycin Level 10.5 H 5-10 ug/mL Urine Color Light-yellow Yellow Urine Clarity Turbid H Clear Urine pH 5.5 5.0-9.0 Urine Specific [place] 1.021 1.001-1.035 Urine Protein 1+ H Negative Urine Ketones Negative Negative Urine Blood 1+ H Negative /uL Urine Nitrite Negative Negative Urine Bilirubin Negative Negative Urine Urobilinogen Normal Negative mg/dL Urine Leukocyte Esterase 2+ Negative /uL Urine RBC 81 0 - 3 /hpf Urine Microscopic WBC 108 H 0-3 /HPF Urine Squamous Epithelial Cells Few <5 /hpf Urine Amorphous Crystals Few None Seen /hpf Urine Bacteria None seen None Seen /hpf Urine Sodium 31 L 40-220 mmol/L Urine Glucose Normal Normal mg/dL C-Reactive Protein High Sensitivity > 20.00 H <1.0 mg/dL Test 10/01/24 18:15 10/01/24 16:55 10/01/24 14:15 10/01/24 14:13 Range/Units Lactic Acid Level 1.7 0.4-2.0 mmol/L Troponin I High Sensitivity 15 </=54 ng/L Venous Blood pH 7.401 7.320-7.430 Venous Blood pCO2 at Patient Temp 34.7 L 38.0-54.0 mmHg Venous Blood pO2 at Patient Temp 44.4 23.0-48.0 mmHg Venous Blood HCO3 21.1 L 22.0-29.0 mmol/L Venous Blood Base Excess -2.9 L -2.0-3.0 mmol/L Influenza Type A Antigen Negative Negative Influenza Type B Antigen Negative Negative SARS-CoV-2 Antigen (Rapid) Negative NEGATIVE B-Type Natriuretic Peptide 74.26 0-100 pg/mL Microbiology Date/Time Source Procedure Growth Status 10/01/24 14:11 Blood Blood Culture - Preliminary Resulted Assessment Paroxysmal atrial fibrillation, stage 3A Rule out structural heart disease Hypertension Dyslipidemia Questionable history of coronary artery disease (on clopidogrel) Sepsis with pneumonia COPD with home oxygen dependence Seizure disorder History of traumatic brain injury status post craniotomy Dementia Plan/Recommendation We will continue with the following plan/recommendations (): * Transthoracic echocardiogram to evaluate cardiac function * ?[id number] VASc score: 3 points, HAS-BLED score: 2 points * Therapeutic Lovenox (renal dose), transition to NOAC when appropriate. Closely monitor H&H, plt count * Beta-gerri for rate control * Monitor and replete electrolytes as needed, keep potassium greater than four and magnesium greater than two * Continue lipid-lowering agent * Close Cardiac surveillance Thank you for allowing us to care for this patient. Please call with any questions or concerns. Critical care time spent: 44 minutes This medical document was created using an electronic medical record system with voice recognition software and computerized dictation system. Although this document has been carefully reviewed, there might still be some phonetic and typographical errors. Occasional wrong-word or ``sound-alike substitutions may have occurred due to the inherent limitations of voice recognition software. These areas are purely typographical due to imperfections of the software programs and do not reflect any compromise in the patient's medical care. Please read the chart carefully and recognize, using context, where these substitutions have occurred. Plan discussed with: Patient NYHA Physical activity limitations: NA Date of Service: Oct 03, 2024 Billing Provider: ANNAMARIA BROWN Cardiology Common Codes: [id number] INP/OBS CARE (High) Cardiology Consultation Codes: [id number] CONSULT <45MIN ANNAMARIA BROWN Oct 03, 2024 11:06
[2024-10-03] MEDS: METOPROLOL TARTRATE 25 MG TAB PO ONE (11:46)
--- NOTE | 2024-10-03 17:38 | DVHPN2 ---
Progress Note Date Seen: Oct 03, 2024 Resident Creating Document: KENZIE IVY RESIDENT Has the PT tested + for MRSA If YES, has PT been informed?: No Medical Necessity Reason Pt with a Central, PICC or Fol: Yes The following are medically ne: Adan Catheter Subjective Review of Systems Patient was examined at bedside, he is still on oxygen supplementation through nasal cannula. Serum sodium was corrected currently on 136. Renal functions slightly improving. Objective vital signs Vital Sign Date Time Temp Pulse Resp B/P (MAP) Pulse Ox O2 Delivery O2 Flow Rate FiO2 10/03/24 17:00 98.9 94 22 110/68 (82) 96 98.9 10/03/24 11:31 Nasal Cannula 2.0 10/03/24 11:31 28 Total Intake and Output 10/02/24 10/02/24 10/03/24 15:00 23:00 07:00 Intake Total 207.5 ml 340 ml 207.5 ml Output Total 700 ml 1500 ml Balance 207.5 ml -360 ml -1292.5 ml medications Current Medications Medications Dose Ordered Sig/Camelia Route Start Time Stop Time Status Last Admin Dose Admin Piperacillin Sod/ Tazobactam Sod 100 ml @ 25 mls/hr BID IV 10/02/24 01:00 10/03/24 11:45 25 MLS/HR Sodium Chloride 10 ml Q8HR IV 10/01/24 22:00 10/03/24 11:47 10 ML Docusate Sodium 100 mg BIDPRN PRN PO 10/01/24 16:45 10/03/24 09:00 100 MG Acetaminophen 650 mg Q6HP PRN PO 10/01/24 16:45 Acetaminophen/ Hydrocodone Bitart 1 tab Q4HP PRN PO 10/01/24 16:45 10/03/24 08:59 1 TAB Ondansetron HCl 4 mg Q4HP PRN IV 10/01/24 16:45 Albuterol 2.5 mg Q6H NEB 10/01/24 18:00 10/03/24 11:31 2.5 MG Ipratropium [place] 0.5 mg Q6H NEB 10/01/24 18:00 10/03/24 11:31 0.5 MG Levetiracetam 750 mg/Sodium Chloride 107.5 ml @ 107.5 mls/ hr BID IV 10/02/24 10:00 10/03/24 10:57 107.5 MLS/HR Acetaminophen 650 mg Q6HP PRN [place] 10/02/24 08:00 Sodium Chloride 1,000 ml @ 75 mls/hr [id number] IV 10/02/24 12:30 10/02/24 19:45 75 MLS/HR Enoxaparin Sodium 100 mg DAILY SC 10/04/24 10:00 Metoprolol Tartrate 12.5 mg BID PO 10/03/24 22:00 Atorvastatin Calcium 20 mg HS PO 10/03/24 22:00 Mupirocin 1 applic BID EACHNOSTRI 10/03/24 22:00 10/08/24 21:59 Examination: GENERAL:Normal, HEENT:Normal, NECK:Normal, LUNGS:Normal, CVS:Normal, ABDOMEN:Normal, MSK:Normal, SKIN:Normal, NEURO:Abnormal, :Normal laboratory and microbiology Laboratory Tests 10/03/24 05:41 Test 10/03/24 05:41 Range/Units Serum Glucose 97 74-106 mg/dL Microbiology Date/Time Source Procedure Growth Status 10/02/24 17:35 Nose MRSA Screen - Final Methicillin Resistant S.aureus Complete 10/02/24 17:35 Urine - Midstream Clean Catch Urine Culture - Preliminary Resulted 10/01/24 14:11 Blood Blood Culture - Preliminary Resulted Problem List/Assessment/Plan Problem List/Assessment/Plan Sepsis likely due to community-acquired pneumonia Acute kidney injury secondary due to sepsis and hypotension, improving COPD Cognitive impairment likely multifactorial due to vascular dementia, post stroke state, Alzheimer disease Seizure disorder Atrial fibrillation with RVR Mild hyponatremia, corrected Multiple PVCs Possible soft tissue mass measuring 2 cm in the left kidney. right hemidiaphragm elevation with associated right lower lobe opacity which most likely represent atelectasis Plan: Continue antibiotic treatment Continue fluid resuscitation with normal saline 0.9% Monitor electrolytes and replace as needed Consider cardiology consult EKGs Maintain IV fluid normal saline 0.9% 75 mL Case discussed with Dr. Schroeder Code status: Full code Plan discussed with: Other (Dr. schroeder) Dietary Evaluation Review Comments: 1. Continue Mechnical Soft diet per SALES REPRESENTATIVE [employer]IFORMS discretion 2. Will add Ensure Enlive TID to enhance PO (provides 350 kcal, 20 gm pro per carton) 3. High risk for malnutrition, continue to document PO intakes 4. If PO does not improve, would implement noctunral TF via NGT w/ Jevity 1.2 @ 140 ml/hr x 12 hrs (2000 hrs - 0800 hrs) until pt able to maintain oral intakes >60% Expected Outcomes/Goals: Improved oral intake vs. supplemental nutrition support, weight maintenance. KENZIE IVY RESIDENT Oct 03, 2024 17:38
[2024-10-03] MEDS: ENOXAPARIN SOD 100 MG/1 ML SYRINGE SC ONE (17:48)
[2024-10-03] MEDS: ATORVASTATIN 20 MG TAB PO SCH (23:00)
[2024-10-03] MEDS: METOPROLOL TARTRATE 25 MG TAB PO SCH (23:06)
[2024-10-03] MEDS: MUPIROCIN 2% OINT 15gm or 22gm FOR MRSA NARES EACHNOSTRI SCH (23:19)
[2024-10-04] VITALS (16 sets, daily range): BP systolic 112–135; BP diastolic 57–95; PULSE 56–98; RESP 16–24; TEMP 97.9–100; O2SAT 95–100
[2024-10-04 06:02] LABS: Basophils # (auto) 0 10 ^3/uL (0-0.2); Basophils % (auto) 0.4 % (0.0-2.0); Eosinophils # (auto) 0.1 10 ^3/uL (0-0.8); Lymphocytes # (auto) 0.4 10 ^3/uL (0.4-5.4); Neutrophils # (auto) 6.9 10 ^3/uL (1.6-8.6); Red Blood Cells 2.85 10^6/uL (4.5-5.90); White Blood Cell 8.4 10^3/uL (4.4-10.8)
[2024-10-04 06:04] LABS: Eosinophils % (auto) 0.8 % (0.0-7.0); Hematocrit 23.6 % (41.0-53.0); Hemoglobin 7.7 g/dL (13.5-17.5); Lymphocytes % (auto) 4.9 % (10.0-50.0); Mean Corpuscular Hemoglobin 27.2 pg (28.0-32.0); Mean Corpuscular Hgb Conc. 32.9 g/dL (32.0-36.0); Mean Corpuscular Volume 82.8 fL (80.0-100.0); Monocytes # (auto) 0.9 10 ^3/uL (0-1.3); Monocytes % (auto) 11.3 % (0.0-12.0); Neutrophils % (auto) 82.6 % (37.0-80.0); Platelet Count (auto) 241 10^3/uL (140-450); Red Cell Distribution Width 17.5 % (11.8-14.3)
[2024-10-04 06:22] LABS: Alanine Aminotransferase 35 U/L (7-40); Albumin 3.3 g/dL (3.2-4.8); Alkaline Phosphatase 70 U/L (46-116); Anion Gap 9 (5-15); Bilirubin, Total 0.6 mg/dL (0.2-1.0); Calcium 8.9 mg/dL (8.7-10.4); Carbon Dioxide 22 mmol/L (20-31); Sodium 138 mmol/L (136-145)
[2024-10-04 06:29] LABS: Aspartate Aminotransferase 42 U/L (13-40); Blood Urea Nitrogen 51 mg/dL (9-23); Chloride 107 mmol/L (98-107); Glucose 110 mg/dL (74-106)
--- NOTE | 2024-10-04 08:44 | DVHPN2 ---
Reviewed: Care Plan, H&P, Labs, Medications, Previous Orders, Radiology Changes from previous H/P or p: No Changes Objective Vitals Vital Signs Date Time Temp Pulse Resp B/P (MAP) Pulse Ox O2 Delivery O2 Flow Rate FiO2 10/04/24 05:49 57 20 100 10/04/24 05:41 Nasal Cannula* 2 28 10/04/24 05:00 98.0 135/79 (97) 98.0 Intake/Output Intake and Output 10/04/24 07:00 Intake Total 1422.5 ml Output Total 900 ml Balance 522.5 ml Intake Oral 400 ml IV Total 322.5 ml Tube Feeding 700 ml Output Urine Total 900 ml Medications Current Medications Medications Dose Ordered Sig/Camelia Route Start Time Stop Time Status Last Admin Dose Admin Piperacillin Sod/ Tazobactam Sod 100 ml @ 25 mls/hr BID IV 10/02/24 01:00 10/03/24 23:09 25 MLS/HR Sodium Chloride 10 ml Q8HR IV 10/01/24 22:00 10/04/24 06:06 10 ML Docusate Sodium 100 mg BIDPRN PRN PO 10/01/24 16:45 10/03/24 09:00 100 MG Acetaminophen 650 mg Q6HP PRN PO 10/01/24 16:45 Acetaminophen/ Hydrocodone Bitart 1 tab Q4HP PRN PO 10/01/24 16:45 10/03/24 08:59 1 TAB Ondansetron HCl 4 mg Q4HP PRN IV 10/01/24 16:45 Albuterol 2.5 mg Q6H NEB 10/01/24 18:00 10/04/24 05:41 2.5 MG Ipratropium [place] 0.5 mg Q6H NEB 10/01/24 18:00 10/04/24 05:41 0.5 MG Levetiracetam 750 mg/Sodium Chloride 107.5 ml @ 107.5 mls/ hr BID IV 10/02/24 10:00 10/03/24 23:00 107.5 MLS/HR Acetaminophen 650 mg Q6HP PRN [place] 10/02/24 08:00 Sodium Chloride 1,000 ml @ 75 mls/hr [id number] IV 10/02/24 12:30 10/03/24 15:10 75 MLS/HR Enoxaparin Sodium 100 mg DAILY SC 10/04/24 10:00 Metoprolol Tartrate 12.5 mg BID PO 10/03/24 22:00 10/03/24 23:06 12.5 MG Atorvastatin Calcium 20 mg HS PO 10/03/24 22:00 10/03/24 23:00 20 MG Mupirocin 1 applic BID EACHNOSTRI 10/03/24 22:00 10/08/24 21:59 10/03/24 23:19 1 APPLIC Laboratory Results Laboratory Tests 10/04/24 05:33 Chemistry Test 10/04/24 05:33 Albumin 3.3 g/dL (3.2-4.8) Calcium Level 8.9 mg/dL (8.7-10.4) Total Protein 6.0 g/dL (5.7-8.2) LFT Test 10/04/24 05:33 Alanine Aminotransferase (ALT) 35 U/L (7-40) Alkaline Phosphatase 70 U/L (46-116) Aspartate Amino Transferase (AST) 42 U/L (13-40) H Total Bilirubin 0.6 mg/dL (0.2-1.0) Urinalysis Test 10/01/24 20:55 10/02/24 17:35 Urine Color Light-yellow (Yellow) Urine Clarity Turbid (Clear) H Urine pH 5.5 (5.0-9.0) Urine Specific [place] 1.021 (1.001-1.035) Urine Protein 1+ (Negative) H Urine Ketones Negative (Negative) Urine Blood 1+ /uL (Negative) H Urine Nitrite Negative (Negative) Urine Bilirubin Negative (Negative) Urine Urobilinogen Normal mg/dL (Negative) Urine Leukocyte Esterase 2+ /uL (Negative) Urine RBC 81 /hpf (0 - 3) Urine Microscopic WBC 108 /HPF (0-3) H Urine Squamous Epithelial Cells Few /hpf (<5) Urine Amorphous Crystals Few /hpf (None Seen) Urine Bacteria None seen /hpf (None Seen) Urine Sodium 31 mmol/L (40-220) L Urine Glucose Normal mg/dL (Normal) Urine Osmolality 507 mOsm/kg Urine Creatinine 85.40 mg/dL (30.0-125.0) Urine Protein/Creatinine Ratio 2.39 Urine Total Protein 204.5 mg/dL (1-14) H Microbiology Microbiology Date/Time Source Procedure Growth Status 10/02/24 17:35 Nose MRSA Screen - Final Methicillin Resistant S.aureus Complete 10/02/24 17:35 Urine - Midstream Clean Catch Urine Culture - Preliminary Resulted 10/01/24 14:11 Blood Blood Culture - Preliminary Resulted Labs and/or images reviewed: Labs reviewed by me, Image(s) reviewed by me Assessment/Plan Assessment/Plan Sepsis secondary to community-acquired pneumonia: Blood cultures growing Gram- negative rods sputum cultures pending continue Zosyn, Bacteremic Gram-negative rods: Continue Zosyn until final result Acute metabolic encephalopathy Acute on chronic hypoxic respiratory failure: Oxygen by nasal cannula Briana test negative Flu test negative Use of home oxygen Acute urinary tract infection: Urine cultures negative, continue Rocephin History of GI bleed History of blood loss anemia History of traumatic brain injury status post craniotomy Hypercholesterolemia: Lipitor Paroxysmal AFib, consult by Dr. Jhonny girard, started on Lovenox therapeutic dose metoprolol Acute on chronic COPD exacerbation Coronary artery disease Hypertension Seizures: Keppra Dementia Acute lactic acidosis Acute kidney injury with BUN creatinine 44/2.55: Nephrology consult appreciated Patient is hospice revoked : Social service consult Patient was transferred from [facility] Time spent 70 minutes Pt lives in a assisted living facility; no family members, caregiver Mallika [phone] at bedside Prognosis is grave Plan discussed with: Patient My Orders Orders - JEANIE VERMA MD Procedure Category Date Status Time Head Without Contrast CT 10/03/24 Resulted 10:00 * Cardiology Consult CONS 10/03/24 Transmitted 10:07 * Measurement Supervisor CONS 10/03/24 Transmitted Consult Comprehensive LAB 10/07/24 Verified Metabolic Panel 05:00 Comprehensive LAB 10/08/24 Verified Metabolic Panel 05:00 Complete Blood Count LAB 10/07/24 Verified 05:00 Complete Blood Count LAB 10/08/24 Verified 05:00 Apply Z-Guard LEANA 10/03/24 In Process 09:50 Mupirocin 2% Oint PHA 10/03/24 In Process Mrsa Nares (Bactroban 22:00 Date of Service: Oct 04, 2024 Billing Provider: JEANIE VERMA MD Common Visit Codes: [id number] CARE 30-74 MIN JEANIE VERMA MD Oct 04, 2024 08:44
[2024-10-04] MEDS: ENOXAPARIN SOD 100 MG/1 ML SYRINGE SC SCH (10:59)
[2024-10-04] MEDS: ERTAPENEM SOD INJ 1 GM in SODIUM CHL 0.9% 50 ML IV ONE (11:01)
--- NOTE | 2024-10-04 13:47 | DVHPN2 ---
Progress Note Date Seen: Oct 04, 2024 Has the PT tested + for MRSA If YES, has PT been informed?: No Medical Necessity Reason Pt with a Central, PICC or Fol: Yes The following are medically ne: Adan Catheter Objective vital signs Vital Sign Date Time Temp Pulse Resp B/P (MAP) Pulse Ox O2 Delivery O2 Flow Rate FiO2 10/04/24 11:08 98 Nasal Cannula 2.0 10/04/24 11:08 28 10/04/24 11:08 75 24 10/04/24 10:59 127/71 10/04/24 09:00 100.0 100.0 Total Intake and Output 10/03/24 10/03/24 10/04/24 15:00 23:00 07:00 Intake Total 207.5 ml 215 ml 1000 ml Output Total 900 ml Balance 207.5 ml -685 ml 1000 ml medications Current Medications Medications Dose Ordered Sig/Camelia Route Start Time Stop Time Status Last Admin Dose Admin Sodium Chloride 10 ml Q8HR IV 10/01/24 22:00 10/04/24 06:06 10 ML Docusate Sodium 100 mg BIDPRN PRN PO 10/01/24 16:45 10/03/24 09:00 100 MG Acetaminophen 650 mg Q6HP PRN PO 10/01/24 16:45 Acetaminophen/ Hydrocodone Bitart 1 tab Q4HP PRN PO 10/01/24 16:45 10/03/24 08:59 1 TAB Ondansetron HCl 4 mg Q4HP PRN IV 10/01/24 16:45 Albuterol 2.5 mg Q6H NEB 10/01/24 18:00 10/04/24 11:07 2.5 MG Ipratropium [place] 0.5 mg Q6H NEB 10/01/24 18:00 10/04/24 11:08 0.5 MG Levetiracetam 750 mg/Sodium Chloride 107.5 ml @ 107.5 mls/ hr BID IV 10/02/24 10:00 10/04/24 12:10 107.5 MLS/HR Acetaminophen 650 mg Q6HP PRN [place] 10/02/24 08:00 Sodium Chloride 1,000 ml @ 75 mls/hr [id number] IV 10/02/24 12:30 10/03/24 15:10 75 MLS/HR Enoxaparin Sodium 100 mg DAILY SC 10/04/24 10:00 10/04/24 10:59 100 MG Metoprolol Tartrate 12.5 mg BID PO 10/03/24 22:00 10/04/24 10:59 12.5 MG Atorvastatin Calcium 20 mg HS PO 10/03/24 22:00 10/03/24 23:00 20 MG Mupirocin 1 applic BID EACHNOSTRI 10/03/24 22:00 10/08/24 21:59 10/04/24 12:10 1 APPLIC Ertapenem 1 gm/ Sodium Chloride 50 ml @ 100 mls/hr DAILY IV 10/05/24 10:00 Examination: GENERAL:Normal laboratory and microbiology Laboratory Tests 10/04/24 05:33 Test 10/04/24 05:33 Range/Units Serum Glucose 110 H 74-106 mg/dL Microbiology Date/Time Source Procedure Growth Status 10/02/24 17:35 Nose MRSA Screen - Final Methicillin Resistant S.aureus Complete 10/02/24 17:35 Urine - Midstream Clean Catch Urine Culture - Preliminary Resulted 10/01/24 14:11 Blood Blood Culture - Final Klebsiella pneumoniae - ESBL Complete Problem List/Assessment/Plan Problem List/Assessment/Plan Sepsis likely due to community-acquired pneumonia Acute kidney injury secondary due to sepsis and hypotension, improving COPD Cognitive impairment likely multifactorial due to vascular dementia, post stroke state, Alzheimer disease Seizure disorder Atrial fibrillation with RVR Mild hyponatremia, corrected Multiple PVCs Possible soft tissue mass measuring 2 cm in the left kidney.--> this will require further imaging in the outpatient when function improves either CT or MRI with contrast right hemidiaphragm elevation with associated right lower lobe opacity which most likely represent atelectasis Renal function improving with IV fluid Conservative management Avoid hypotension goes to chronic care facility will sign off Plan discussed with: Patient Dietary Evaluation Review Comments: 1. Continue Mechnical Soft diet per TRANSPLANT CASE MANAGER discretion 2. Will add Ensure Enlive TID to enhance PO (provides 350 kcal, 20 gm pro per carton) 3. High risk for malnutrition, continue to document PO intakes 4. If PO does not improve, would implement noctunral TF via NGT w/ Jevity 1.2 @ 140 ml/hr x 12 hrs (2000 hrs - 0800 hrs) until pt able to maintain oral intakes >60% Expected Outcomes/Goals: Improved oral intake vs. supplemental nutrition support, weight maintenance. ALBERTO ELLIOTT MD Oct 04, 2024 13:47
--- NOTE | 2024-10-04 15:33 | DVHPN2 ---
Consult Progress Note Subjective Other Systems: Patient remains in normal sinus rhythm with frequent PVCs on media professional Objective vital signs Vital Sign Date Time Temp Pulse Resp B/P (MAP) Pulse Ox O2 Delivery O2 Flow Rate FiO2 10/04/24 15:05 57 16 95 2.0 10/04/24 13:00 97.9 128/95 (106) 97.9 10/04/24 11:08 Nasal Cannula 10/04/24 11:08 28 Total Intake and Output 10/03/24 10/03/24 10/04/24 15:00 23:00 07:00 Intake Total 207.5 ml 215 ml 1000 ml Output Total 900 ml Balance 207.5 ml -685 ml 1000 ml medications Current Medications Medications Dose Ordered Sig/Camelia Route Start Time Stop Time Status Last Admin Dose Admin Sodium Chloride 10 ml Q8HR IV 10/01/24 22:00 10/04/24 06:06 10 ML Docusate Sodium 100 mg BIDPRN PRN PO 10/01/24 16:45 10/03/24 09:00 100 MG Acetaminophen 650 mg Q6HP PRN PO 10/01/24 16:45 Acetaminophen/ Hydrocodone Bitart 1 tab Q4HP PRN PO 10/01/24 16:45 10/03/24 08:59 1 TAB Ondansetron HCl 4 mg Q4HP PRN IV 10/01/24 16:45 Albuterol 2.5 mg Q6H NEB 10/01/24 18:00 10/04/24 11:07 2.5 MG Ipratropium [place] 0.5 mg Q6H NEB 10/01/24 18:00 10/04/24 11:08 0.5 MG Levetiracetam 750 mg/Sodium Chloride 107.5 ml @ 107.5 mls/ hr BID IV 10/02/24 10:00 10/04/24 12:10 107.5 MLS/HR Acetaminophen 650 mg Q6HP PRN [place] 10/02/24 08:00 Sodium Chloride 1,000 ml @ 75 mls/hr [id number] IV 10/02/24 12:30 10/03/24 15:10 75 MLS/HR Enoxaparin Sodium 100 mg DAILY SC 10/04/24 10:00 10/04/24 10:59 100 MG Metoprolol Tartrate 12.5 mg BID PO 10/03/24 22:00 10/04/24 10:59 12.5 MG Atorvastatin Calcium 20 mg HS PO 10/03/24 22:00 10/03/24 23:00 20 MG Mupirocin 1 applic BID EACHNOSTRI 10/03/24 22:00 10/08/24 21:59 10/04/24 12:10 1 APPLIC Ertapenem 1 gm/ Sodium Chloride 50 ml @ 100 mls/hr DAILY IV 10/05/24 10:00 Examination: GENERAL:Abnormal (Generalized weakness), LUNGS:Normal, CVS:Normal laboratory and microbiology Laboratory Tests 10/04/24 05:33 Test 10/04/24 05:33 Range/Units Serum Glucose 110 H 74-106 mg/dL Problem List/Assessment/Plan Problem List/Assessment/Plan Paroxysmal atrial fibrillation, stage 3A Rule out structural heart disease Hypertension Dyslipidemia Questionable history of coronary artery disease (on clopidogrel) Sepsis with pneumonia COPD with home oxygen dependence Seizure disorder Acute kidney injury History of traumatic brain injury status post craniotomy Dementia Plan/Recommendation (): * Transthoracic echocardiogram to evaluate cardiac function * ?[id number] VASc score: 3 points, HAS-BLED score: 2 points * Therapeutic Lovenox (renal dose), transition to NOAC when appropriate. Closely monitor H&H, plt count * Beta-gerri for rate control; up-titrate as tolerated * Monitor and replete electrolytes as needed, keep potassium greater than four and magnesium greater than two * Continue lipid-lowering agent * Close Cardiac surveillance Thank you for allowing us to care for this patient. Please call with any questions or concerns. This medical document was created using an electronic medical record system with voice recognition software and computerized dictation system. Although this document has been carefully reviewed, there might still be some phonetic and typographical errors. Occasional wrong-word or ``sound-alike substitutions may have occurred due to the inherent limitations of voice recognition software. These areas are purely typographical due to imperfections of the software programs and do not reflect any compromise in the patient's medical care. Please read the chart carefully and recognize, using context, where these substitutions have occurred. Plan discussed with: Patient Dietary Evaluation Review Comments: 1. Continue Mechnical Soft diet per BANQUET PREP COOK discretion 2. Will add Ensure Enlive TID to enhance PO (provides 350 kcal, 20 gm pro per carton) 3. High risk for malnutrition, continue to document PO intakes 4. If PO does not improve, would implement noctunral TF via NGT w/ Jevity 1.2 @ 140 ml/hr x 12 hrs (2000 hrs - 0800 hrs) until pt able to maintain oral intakes >60% Expected Outcomes/Goals: Improved oral intake vs. supplemental nutrition support, weight maintenance. Date of Service: Oct 04, 2024 Billing Provider: ANNAMARIA BROWN Common Visit Codes: [id number] INP/OBS CARE(HIGH) ANNAMARIA BROWN Oct 04, 2024 15:33
[2024-10-04] MEDS: METOPROLOL TARTRATE 25 MG TAB PO SCH (21:47)
[2024-10-05] VITALS (17 sets, daily range): BP systolic 113–137; BP diastolic 59–78; PULSE 44–97; RESP 17–22; TEMP 97.2–99.5; O2SAT 95–100
[2024-10-05 07:59] LABS: Eosinophils # (auto) 0.2 10 ^3/uL (0-0.8); Hemoglobin 7.3 g/dL (13.5-17.5); Lymphocytes # (auto) 0.7 10 ^3/uL (0.4-5.4); Neutrophils # (auto) 7.2 10 ^3/uL (1.6-8.6)
[2024-10-05 08:01] LABS: Basophils # (auto) 0.1 10 ^3/uL (0-0.2); Basophils % (auto) 0.6 % (0.0-2.0); Eosinophils % (auto) 1.9 % (0.0-7.0); Hematocrit 22.9 % (41.0-53.0); Lymphocytes % (auto) 7.4 % (10.0-50.0); Mean Corpuscular Hemoglobin 26.9 pg (28.0-32.0); Mean Corpuscular Volume 84.1 fL (80.0-100.0); Monocytes % (auto) 10.6 % (0.0-12.0); Neutrophils % (auto) 79.5 % (37.0-80.0); Platelet Count (auto) 263 10^3/uL (140-450); Red Blood Cells 2.72 10^6/uL (4.5-5.90); Red Cell Distribution Width 18.2 % (11.8-14.3); White Blood Cell 9.1 10^3/uL (4.4-10.8)
[2024-10-05 08:16] LABS: Alanine Aminotransferase 33 U/L (7-40); Albumin 3.3 g/dL (3.2-4.8); Alkaline Phosphatase 72 U/L (46-116); Anion Gap 8 (5-15); Aspartate Aminotransferase 19 U/L (13-40); Carbon Dioxide 24 mmol/L (20-31); Magnesium 2.3 mg/dL (1.6-2.6); Potassium 4.1 mmol/L (3.5-5.1); Sodium 141 mmol/L (136-145); Total Protein 6.1 g/dL (5.7-8.2)
[2024-10-05 08:17] LABS: Bilirubin, Total 0.3 mg/dL (0.2-1.0)
[2024-10-05 08:19] LABS: Blood Urea Nitrogen 42 mg/dL (9-23); Chloride 109 mmol/L (98-107); Glucose 126 mg/dL (74-106)
[2024-10-05 08:26] LABS: BUN/Creatinine Ratio 23.3 (10.0-20.0)
--- NOTE | 2024-10-05 08:56 | ECG ---
[facility] Test Date: 2024-10-05 Test Time: 02:20:47 Pat Name: BRODY CHOWDHURY Department: Respiratoy Room: 0246T B Gender: M Planning Analyst: BARBARA : 1955 Requested By: MADELEINE COBB Order Number: [id number] Reading MD: Balta Barry Measurements Intervals [place] Rate: 82 P: -9 AL: 176 QRS: -23 QRSD: 99 T: 29 QT: 425 QTc: 497 Interpretive Statements Sinus rhythm Multiple premature complexes, vent & supraven Inferior infarct, old Consider anterior infarct Electronically Signed On 10-05-2024 13:29:34 PDT by Balta Barry Please click the below link to view image of tracing.
[2024-10-05] MEDS: ERTAPENEM SOD INJ 1 GM in SODIUM CHL 0.9% 50 ML IV SCH (10:00)
--- NOTE | 2024-10-05 11:15 | DVHPN2 ---
Reviewed: Care Plan, H&P, Labs, Medications, Previous Orders, Radiology Changes from previous H/P or p: No Changes Objective Vitals Vital Signs Date Time Temp Pulse Resp B/P (MAP) Pulse Ox O2 Delivery O2 Flow Rate FiO2 10/05/24 11:00 74 122/72 10/05/24 09:00 98.8 21 100 98.8 10/05/24 06:03 Nasal Cannula 3.0 10/05/24 06:03 32 Intake/Output Intake and Output 10/05/24 07:00 Intake Total 2107.5 ml Output Total 2550 ml Balance -442.5 ml Intake Oral 1300 ml IV Total 807.5 ml Output Urine Total 2550 ml Medications Current Medications Medications Dose Ordered Sig/Camelia Route Start Time Stop Time Status Last Admin Dose Admin Sodium Chloride 10 ml Q8HR IV 10/01/24 22:00 10/05/24 05:05 10 ML Docusate Sodium 100 mg BIDPRN PRN PO 10/01/24 16:45 10/03/24 09:00 100 MG Acetaminophen 650 mg Q6HP PRN PO 10/01/24 16:45 Acetaminophen/ Hydrocodone Bitart 1 tab Q4HP PRN PO 10/01/24 16:45 10/03/24 08:59 1 TAB Ondansetron HCl 4 mg Q4HP PRN IV 10/01/24 16:45 Albuterol 2.5 mg Q6H NEB 10/01/24 18:00 10/05/24 06:03 2.5 MG Ipratropium [place] 0.5 mg Q6H NEB 10/01/24 18:00 10/05/24 06:03 0.5 MG Levetiracetam 750 mg/Sodium Chloride 107.5 ml @ 107.5 mls/ hr BID IV 10/02/24 10:00 10/04/24 22:13 107.5 MLS/HR Acetaminophen 650 mg Q6HP PRN [place] 10/02/24 08:00 Sodium Chloride 1,000 ml @ 75 mls/hr [id number] IV 10/02/24 12:30 10/04/24 22:15 75 MLS/HR Enoxaparin Sodium 100 mg DAILY SC 10/04/24 10:00 10/05/24 10:59 100 MG Atorvastatin Calcium 20 mg HS PO 10/03/24 22:00 10/04/24 21:45 20 MG Mupirocin 1 applic BID EACHNOSTRI 10/03/24 22:00 10/08/24 21:59 10/04/24 21:33 1 APPLIC Ertapenem 1 gm/ Sodium Chloride 50 ml @ 100 mls/hr DAILY IV 10/05/24 10:00 Metoprolol Tartrate 25 mg BID PO 10/04/24 22:00 10/05/24 11:00 25 MG Laboratory Results Laboratory Tests 10/05/24 06:37 Chemistry Test 10/05/24 06:37 Albumin 3.3 g/dL (3.2-4.8) Calcium Level 9.0 mg/dL (8.7-10.4) Magnesium Level 2.3 mg/dL (1.6-2.6) Total Protein 6.1 g/dL (5.7-8.2) LFT Test 10/05/24 06:37 Alanine Aminotransferase (ALT) 33 U/L (7-40) Alkaline Phosphatase 72 U/L (46-116) Aspartate Amino Transferase (AST) 19 U/L (13-40) Total Bilirubin 0.3 mg/dL (0.2-1.0) Urinalysis Test 10/01/24 20:55 10/02/24 17:35 Urine Color Light-yellow (Yellow) Urine Clarity Turbid (Clear) H Urine pH 5.5 (5.0-9.0) Urine Specific [place] 1.021 (1.001-1.035) Urine Protein 1+ (Negative) H Urine Ketones Negative (Negative) Urine Blood 1+ /uL (Negative) H Urine Nitrite Negative (Negative) Urine Bilirubin Negative (Negative) Urine Urobilinogen Normal mg/dL (Negative) Urine Leukocyte Esterase 2+ /uL (Negative) Urine RBC 81 /hpf (0 - 3) Urine Microscopic WBC 108 /HPF (0-3) H Urine Squamous Epithelial Cells Few /hpf (<5) Urine Amorphous Crystals Few /hpf (None Seen) Urine Bacteria None seen /hpf (None Seen) Urine Sodium 31 mmol/L (40-220) L Urine Glucose Normal mg/dL (Normal) Urine Osmolality 507 mOsm/kg Urine Creatinine 85.40 mg/dL (30.0-125.0) Urine Protein/Creatinine Ratio 2.39 Urine Total Protein 204.5 mg/dL (1-14) H Microbiology Microbiology Date/Time Source Procedure Growth Status 10/02/24 17:35 Nose MRSA Screen - Final Methicillin Resistant S.aureus Complete 10/02/24 17:35 Urine - Midstream Clean Catch Urine Culture - Final Complete 10/01/24 14:11 Blood Blood Culture - Final Klebsiella pneumoniae - ESBL Complete Labs and/or images reviewed: Labs reviewed by me, Image(s) reviewed by me Assessment/Plan Assessment/Plan Sepsis secondary to community-acquired pneumonia: Blood cultures growing ESBL Klebsiella pneumoniae: Started on Invanz Bacteremia with ESBL Klebsiella on Invanz Acute metabolic encephalopathy Acute on chronic hypoxic respiratory failure: Oxygen by nasal cannula Briana test negative Flu test negative Use of home oxygen Acute urinary tract infection: Urine cultures negative, continue Rocephin History of GI bleed History of blood loss anemia History of traumatic brain injury status post craniotomy Hypercholesterolemia: Lipitor Paroxysmal AFib, consult by Dr. Jhonny girard, started on Lovenox therapeutic dose and metoprolol Acute on chronic COPD exacerbation Coronary artery disease Hypertension Seizures: Keppra MRSA in the nose: Bactroban nasal ointment Dementia Acute lactic acidosis Acute kidney injury with BUN creatinine 44/2.55: Nephrology consult appreciated Patient is hospice revoked : Social service consult Patient was transferred from [facility] nursing [facility] Time spent 50 minutes Pt lives in a assisted living facility; no family members, caregiver Mallika [phone] at bedside Prognosis is grave Midline ordered Discussed with the caregiver about IV antibiotics for three weeks bacteremia and longterm placement she agrees Plan discussed with: Patient Date of Service: Oct 05, 2024 Billing Provider: JEANIE VERMA MD Common Visit Codes: [id number] INP/OBS CARE(HIGH) JEANIE VERMA MD Oct 05, 2024 11:15
--- NOTE | 2024-10-05 11:32 | DVHDS2 ---
Discharge Summary Date of Admission Oct 01, 2024 at 16:31 Date of Discharge: Oct 05, 2024 Admitting Diagnosis Altered mental status and confusion Wounds: None Labs/Diagnostic Data: Laboratory Results Test 10/05/24 06:37 10/03/24 00:32 10/02/24 22:36 10/02/24 17:35 White Blood Count 9.1 10^3/uL (4.4-10.8) Red Blood Count 2.72 10^6/uL (4.5-5.90) Hemoglobin 7.3 g/dL (13.5-17.5) Hematocrit 22.9 % (41.0-53.0) Mean Corpuscular Volume 84.1 fL (80.0-100.0) Mean Corpuscular Hemoglobin 26.9 pg (28.0-32.0) Mean Corpuscular Hemoglobin Concent 32.0 g/dL (32.0-36.0) Red Cell Distribution Width 18.2 % (11.8-14.3) Platelet Count 263 10^3/uL (140-450) Mean Platelet Volume 10.1 fL (6.9-10.8) Neutrophils (%) (Auto) 79.5 % (37.0-80.0) Lymphocytes (%) (Auto) 7.4 % (10.0-50.0) Monocytes (%) (Auto) 10.6 % (0.0-12.0) Eosinophils (%) (Auto) 1.9 % (0.0-7.0) Basophils (%) (Auto) 0.6 % (0.0-2.0) Neutrophils # (Auto) 7.2 10 ^3/uL (1.6-8.6) Lymphocytes # (Auto) 0.7 10 ^3/uL (0.4-5.4) Monocytes # (Auto) 1.0 10 ^3/uL (0-1.3) Eosinophils # (Auto) 0.2 10 ^3/uL (0-0.8) Basophils # (Auto) 0.1 10 ^3/uL (0-0.2) Nucleated Red Blood Cells 0.0 % Sodium Level 141 mmol/L (136-145) Potassium Level 4.1 mmol/L (3.5-5.1) Chloride Level 109 mmol/L (98-107) Carbon Dioxide Level 24 mmol/L (20-31) Anion Gap 8 (5-15) Blood Urea Nitrogen 42 mg/dL (9-23) Creatinine 1.80 mg/dL (0.700-1.30) Glomerular Filtration Rate Calc 40 mL/min (>90) BUN/Creatinine Ratio 23.3 (10.0-20.0) Serum Glucose 126 mg/dL (74-106) Calcium Level 9.0 mg/dL (8.7-10.4) Magnesium Level 2.3 mg/dL (1.6-2.6) Total Bilirubin 0.3 mg/dL (0.2-1.0) Aspartate Amino Transferase (AST) 19 U/L (13-40) Alanine Aminotransferase (ALT) 33 U/L (7-40) Alkaline Phosphatase 72 U/L (46-116) Total Protein 6.1 g/dL (5.7-8.2) Albumin 3.3 g/dL (3.2-4.8) Blood Gas Specimen Type Arterial Blood Gas Sample Site Right radial Blood Gas Patient Temperature 37.0 Arterial Blood Date Drawn [id number] Arterial Blood pH 7.443 (7.350-7.450) Arterial Blood Partial Pressure CO2 30.3 mmHg (35.0-48.0) Arterial Blood Partial Pressure O2 65.7 mmHg (83.0-108.0) Arterial Blood HCO3 20.3 mmol/L (21.0-28.0) Arterial Blood Oxygen Saturation 92.0 % (94.0-98.0) Arterial Blood Base Excess -3.1 mmol/L (-2.0-3.0) Arterial Blood Oxyhemoglobin 91.5 % (94.0-98.0) Arterial Blood Carboxyhemoglobin 0.1 % (0.5-1.5) Arterial Blood Methemoglobin 0.4 % (0.0-1.5) Jr Test Yes Blood Gas Total Hemoglobin 10.20 g/dL (13.5-17.5) Blood Gas Liter Flow 2.00 Blood Gas Modality Nasal cannula FiO2 % 28.0 POC Glucose 125 mg/dl (70-106) Urine Osmolality 507 mOsm/kg Urine Creatinine 85.40 mg/dL (30.0-125.0) Urine Protein/Creatinine Ratio 2.39 Urine Total Protein 204.5 mg/dL (1-14) Test 10/02/24 04:50 10/01/24 20:55 10/01/24 19:01 10/01/24 18:15 Hemoglobin A1c 4.8 % A1C (<5.7) Phosphorus Level 3.4 mg/dL (2.4-5.1) Parathyroid Hormone (Intact) 82.4 pg/mL (18.4-80.1) Random Vancomycin Level 10.5 ug/mL (5-10) Urine Color Light-yellow (Yellow) Urine Clarity Turbid (Clear) Urine pH 5.5 (5.0-9.0) Urine Specific [place] 1.021 (1.001-1.035) Urine Protein 1+ (Negative) Urine Ketones Negative (Negative) Urine Blood 1+ /uL (Negative) Urine Nitrite Negative (Negative) Urine Bilirubin Negative (Negative) Urine Urobilinogen Normal mg/dL (Negative) Urine Leukocyte Esterase 2+ /uL (Negative) Urine RBC 81 /hpf (0 - 3) Urine Microscopic WBC 108 /HPF (0-3) Urine Squamous Epithelial Cells Few /hpf (<5) Urine Amorphous Crystals Few /hpf (None Seen) Urine Bacteria None seen /hpf (None Seen) Urine Sodium 31 mmol/L (40-220) Urine Glucose Normal mg/dL (Normal) C-Reactive Protein High Sensitivity > 20.00 mg/dL (<1.0) Lactic Acid Level 1.7 mmol/L (0.4-2.0) Troponin I High Sensitivity 15 ng/L (</=54) Test 10/01/24 16:55 10/01/24 14:15 10/01/24 14:13 Venous Blood pH 7.401 (7.320-7.430) Venous Blood pCO2 at Patient Temp 34.7 mmHg (38.0-54.0) Venous Blood pO2 at Patient Temp 44.4 mmHg (23.0-48.0) Venous Blood HCO3 21.1 mmol/L (22.0-29.0) Venous Blood Base Excess -2.9 mmol/L (-2.0-3.0) Influenza Type A Antigen Negative (Negative) Influenza Type B Antigen Negative (Negative) SARS-CoV-2 Antigen (Rapid) Negative (NEGATIVE) B-Type Natriuretic Peptide 74.26 pg/mL (0-100) Other Laboratory Tests 10/05/24 06:37 Brief Hx & Hospital Course: 68-year-old male hospice revoked admitted for altered mental status confusion and generalized weakness. Found to have community-acquired pneumonia with the bacteremia with the ESBL Klebsiella pneumoniae antibiotics changed to Invanz patient had AFib started on Lovenox therapeutic dose by lead generation specialist converted to Eliquis. Patient has COPD coronary artery disease hypertension seizures. Flu test negative Briana test negative MRSA nose positive treated with a Bactroban nasal ointment patient being discharged to care home facility for Invanz 1 g IV daily for three weeks for bacteremia . Patient lives in a assisted living facility . No family members. Discussed with the caregiver Pietro who is agreeable with the plan. General condition stable but poor at the time of discharge Consults/Reason for consult Cardiology Dr. Barry Operations or Procedures Echocardiogram Condition at Discharge: Poor Final Diagnosis/Problems List Sepsis secondary to community-acquired pneumonia: Blood cultures growing ESBL Klebsiella pneumoniae: Started on Invanz Bacteremia with ESBL Klebsiella on Invanz Acute metabolic encephalopathy Acute on chronic hypoxic respiratory failure: Oxygen by nasal cannula Briana test negative Flu test negative Use of home oxygen Acute urinary tract infection: Urine cultures negative, continue Rocephin History of GI bleed History of blood loss anemia History of traumatic brain injury status post craniotomy Hypercholesterolemia: Lipitor Paroxysmal AFib, consult by Dr. Barry appreciated, started on Lovenox therapeutic dose and metoprolol Acute on chronic COPD exacerbation Coronary artery disease Hypertension Seizures: Keppra MRSA in the nose: Bactroban nasal ointment Dementia Acute lactic acidosis Acute kidney injury with BUN creatinine 44/2.55: Nephrology consult appreciated Patient is hospice revoked : Social service consult Patient was transferred from [facility] nursing [facility] Time spent 50 minutes Pt lives in a assisted living facility; no family members, caregiver Mallika [phone] at bedside Prognosis is grave Midline ordered Discussed with the caregiver about IV antibiotics for three weeks bacteremia and custodial placement she agrees Discharge Disposition: Residential Facility Discharge Instruct/Medications Diet: Cardiac 2g Na,low cholest Activity: Bed rest Follow Up/Referral: Follow up with the custodial Medications: Invanz 1 g IV daily for three weeks See list for other meds 39 (Time taken for discharge summary 39 minutes) Discharge Statement: "Patient was advised to return to the ER or call 911 if any headaches, dizziness, shortness of breath, chest pain, abdominal pain, bleeding, fevers, or worsening of medical condition. Patient was counseled about treatment plan, medications, possible side effects, patientverbalized understanding. All questions were answered to the best of my ability. This discharge took greater then 30 minutes in planning, reviewing documentation, counseling the patient, and discussing with other team members." ASSESSMENT ASSESSMENT Hospital Course Improving Assessment Sepsis secondary to community-acquired pneumonia: Blood cultures growing ESBL Klebsiella pneumoniae: Started on Invanz Bacteremia with ESBL Klebsiella on Invanz Acute metabolic encephalopathy Acute on chronic hypoxic respiratory failure: Oxygen by nasal cannula Briana test negative Flu test negative Use of home oxygen Acute urinary tract infection: Urine cultures negative, continue Rocephin History of GI bleed History of blood loss anemia History of traumatic brain injury status post craniotomy Hypercholesterolemia: Lipitor Paroxysmal AFib, consult by Dr. Jhonny girard, started on Lovenox therapeutic dose and metoprolol Acute on chronic COPD exacerbation Coronary artery disease Hypertension Seizures: Keppra MRSA in the nose: Bactroban nasal ointment Dementia Acute lactic acidosis Acute kidney injury with BUN creatinine 44/2.55: Nephrology consult appreciated Patient is hospice revoked : Social service consult Patient was transferred from [facility] nursing [facility] Time spent 50 minutes Pt lives in a assisted living facility; no family members, caregiver Mallika [phone] at bedside Prognosis is grave Midline ordered Discussed with the caregiver about IV antibiotics for three weeks bacteremia and custodial placement she agrees Date of Service: Oct 05, 2024 Billing Provider: JEANIE VERMA MD Common Visit Codes: [id number] DISCH DAY >30min JEANIE VERMA MD Oct 05, 2024 11:32
[2024-10-05] MEDS: APIXABAN 2.5 MG TAB PO SCH (23:32)
[2024-10-05] MEDS: levETIRAcetam 500 MG/5ML INJ IV ONE (23:37)
--- NOTE | 2024-10-05 23:54 | DVHPN2 ---
Consult Progress Note Subjective Other Systems: Patient was seen and evaluated in follow up. Patient remains in normal sinus rhythm with frequent PVCs on child center assistant. HGB 7.3, HCT 22.9, CL 109, BUN 42, STUDY COORDINATOR 1.80. Telemetry reviewed. Objective vital signs Vital Sign Date Time Temp Pulse Resp B/P (MAP) Pulse Ox O2 Delivery O2 Flow Rate FiO2 10/05/24 21:00 99.5 97 22 137/78 (97) 100 99.5 10/05/24 18:37 Nasal Cannula 3.0 10/05/24 18:37 28 Total Intake and Output 10/04/24 10/04/24 10/05/24 14:59 22:59 06:59 Intake Total 157.5 ml 1650 ml 300 ml Output Total 950 ml 1600 ml Balance 157.5 ml 700 ml -1300 ml medications Current Medications Medications Dose Ordered Sig/Camelia Route Start Time Stop Time Status Last Admin Dose Admin Sodium Chloride 10 ml Q8HR IV 10/01/24 22:00 10/05/24 14:00 10 ML Docusate Sodium 100 mg BIDPRN PRN PO 10/01/24 16:45 10/03/24 09:00 100 MG Acetaminophen 650 mg Q6HP PRN PO 10/01/24 16:45 Acetaminophen/ Hydrocodone Bitart 1 tab Q4HP PRN PO 10/01/24 16:45 10/03/24 08:59 1 TAB Ondansetron HCl 4 mg Q4HP PRN IV 10/01/24 16:45 Albuterol 2.5 mg Q6H NEB 10/01/24 18:00 10/05/24 18:36 2.5 MG Ipratropium [place] 0.5 mg Q6H NEB 10/01/24 18:00 10/05/24 18:36 0.5 MG Levetiracetam 750 mg/Sodium Chloride 107.5 ml @ 107.5 mls/ hr BID IV 10/02/24 10:00 10/05/24 10:00 107.5 MLS/HR Acetaminophen 650 mg Q6HP PRN [place] 10/02/24 08:00 Sodium Chloride 1,000 ml @ 75 mls/hr [id number] IV 10/02/24 12:30 10/04/24 22:15 75 MLS/HR Atorvastatin Calcium 20 mg HS PO 10/03/24 22:00 10/04/24 21:45 20 MG Mupirocin 1 applic BID EACHNOSTRI 10/03/24 22:00 10/08/24 21:59 10/05/24 10:00 1 APPLIC Ertapenem 1 gm/ Sodium Chloride 50 ml @ 100 mls/hr DAILY IV 10/05/24 10:00 10/05/24 10:00 100 MLS/HR Metoprolol Tartrate 25 mg BID PO 10/04/24 22:00 10/05/24 11:00 25 MG Apixaban 2.5 mg BID PO 10/05/24 22:00 Examination: GENERAL:Abnormal (Generalized weakness), NECK:Normal, LUNGS:Normal, CVS:Normal, ABDOMEN:Normal laboratory and microbiology Laboratory Tests 10/05/24 06:37 Test 10/05/24 06:37 Range/Units Serum Glucose 126 H 74-106 mg/dL Problem List/Assessment/Plan Problem List/Assessment/Plan Problem List/Assessment/Plan Paroxysmal atrial fibrillation, stage 3A. Rule out structural heart disease. Hypertension. Dyslipidemia. Questionable history of coronary artery disease (on clopidogrel). Sepsis with pneumonia. COPD with home oxygen dependence. Seizure disorder. Acute kidney injury. History of traumatic brain injury status post craniotomy. Dementia. Plan/Recommendation Continued all current supportive medical care. Patient has been seen by Sierra Mathew NP on my behalf, her and I discussed the plan with the patient. Transthoracic echocardiogram to evaluate cardiac function. ?[id number] VASc score: 3 points, HAS-BLED score: 2 points. Therapeutic Lovenox (renal dose), transition to NOAC when appropriate. Closely monitor H&H, plt count. Beta-gerri for rate control; up-titrate as tolerated . Monitor and replete electrolytes as needed, keep potassium greater than four and magnesium greater than two. Continue lipid-lowering agent. Close Cardiac surveillance. Additional plan as per the hospital course. Plan discussed with: Patient Dietary Evaluation Review Comments: 1. Continue Mechnical Soft diet per SENIOR LINUX ADMINISTRATOR discretion 2. Will add Ensure Enlive TID to enhance PO (provides 350 kcal, 20 gm pro per carton) 3. High risk for malnutrition, continue to document PO intakes 4. If PO does not improve, would implement noctunral TF via NGT w/ Jevity 1.2 @ 140 ml/hr x 12 hrs (2000 hrs - 0800 hrs) until pt able to maintain oral intakes >60% Expected Outcomes/Goals: Improved oral intake vs. supplemental nutrition support, weight maintenance. Date of Service: Oct 05, 2024 Billing Provider: SIGIFREDO ISBELL MD Cardiology Common Codes: [id number] HOSP CARE(High SIGIFREDO ISBELL MD Oct 05, 2024 22:51
[2024-10-06] VITALS (18 sets, daily range): BP systolic 117–136; BP diastolic 72–79; PULSE 17–69; RESP 17–22; TEMP 36.4; O2SAT 96–100
[2024-10-06 06:05] LABS: Hemoglobin 7.1 g/dL (13.5-17.5)
[2024-10-06 06:09] LABS: Hematocrit 22.3 % (41.0-53.0); Mean Corpuscular Hemoglobin 26.9 pg (28.0-32.0); Platelet Count (auto) 312 10^3/uL (140-450); Red Blood Cells 2.66 10^6/uL (4.5-5.90); Red Cell Distribution Width 17.9 % (11.8-14.3); White Blood Cell 9.6 10^3/uL (4.4-10.8)
[2024-10-06 06:28] LABS: Basophils % (manual) 0 (0.0-2.0); Blast Cells 0; Metamyelocytes % 0; Myelocytes % 0; Promyelocytes % 0; Reactive Lymphocytes 0
[2024-10-06 06:30] LABS: Alkaline Phosphatase 64 U/L (46-116); Anion Gap 7 (5-15); Aspartate Aminotransferase 35 U/L (13-40); BUN/Creatinine Ratio 20.4 (10.0-20.0); Carbon Dioxide 25 mmol/L (20-31); Potassium 4.5 mmol/L (3.5-5.1); Sodium 140 mmol/L (136-145); Total Protein 6.3 g/dL (5.7-8.2)
[2024-10-06 06:38] LABS: Anisocytosis Slight; Band Neutrophils % (manual) 1; Eosinophils % (manual) 4 (0-7); Lymphocytes % (manual) 12 (10.0-50.0); Macrocytosis Slight; Monocytes % (manual) 6 (0-12); Platelet Estimate Adequate
[2024-10-06 06:50] LABS: Alanine Aminotransferase 40 U/L (7-40); Albumin 3.2 g/dL (3.2-4.8); Bilirubin, Total 0.2 mg/dL (0.2-1.0); Blood Urea Nitrogen 34 mg/dL (9-23); Calcium 8.5 mg/dL (8.7-10.4); Chloride 108 mmol/L (98-107); Glucose 127 mg/dL (74-106)
--- NOTE | 2024-10-06 09:33 | DVHPN2 ---
Reviewed: Care Plan, H&P, Labs, Medications, Previous Orders, Radiology Changes from previous H/P or p: No Changes Objective Vitals Vital Signs Date Time Temp Pulse Resp B/P (MAP) Pulse Ox O2 Delivery O2 Flow Rate FiO2 10/06/24 07:13 60 20 100 10/06/24 07:07 Nasal Cannula 3.0 10/06/24 07:07 32 10/06/24 05:00 97.8 125/79 (94) 97.8 Intake/Output Intake and Output 10/06/24 07:00 Intake Total 1200 ml Output Total 1700 ml Balance -500 ml Intake Oral 1200 ml Output Urine Total 1700 ml # Bowel Movements 1 Medications Current Medications Medications Dose Ordered Sig/Camelia Route Start Time Stop Time Status Last Admin Dose Admin Sodium Chloride 10 ml Q8HR IV 10/01/24 22:00 10/06/24 06:26 10 ML Docusate Sodium 100 mg BIDPRN PRN PO 10/01/24 16:45 10/03/24 09:00 100 MG Acetaminophen 650 mg Q6HP PRN PO 10/01/24 16:45 Acetaminophen/ Hydrocodone Bitart 1 tab Q4HP PRN PO 10/01/24 16:45 10/03/24 08:59 1 TAB Ondansetron HCl 4 mg Q4HP PRN IV 10/01/24 16:45 Albuterol 2.5 mg Q6H NEB 10/01/24 18:00 10/06/24 07:07 2.5 MG Ipratropium [place] 0.5 mg Q6H NEB 10/01/24 18:00 10/06/24 07:07 0.5 MG Levetiracetam 750 mg/Sodium Chloride 107.5 ml @ 107.5 mls/ hr BID IV 10/02/24 10:00 10/06/24 00:22 107.5 MLS/HR Acetaminophen 650 mg Q6HP PRN UT 10/02/24 08:00 Sodium Chloride 1,000 ml @ 75 mls/hr [id number] IV 10/02/24 12:30 10/04/24 22:15 75 MLS/HR Atorvastatin Calcium 20 mg HS PO 10/03/24 22:00 10/05/24 23:34 20 MG Mupirocin 1 applic BID EACHNOSTRI 10/03/24 22:00 10/08/24 21:59 10/05/24 22:00 1 APPLIC Ertapenem 1 gm/ Sodium Chloride 50 ml @ 100 mls/hr DAILY IV 10/05/24 10:00 10/05/24 10:00 100 MLS/HR Metoprolol Tartrate 25 mg BID PO 10/04/24 22:00 10/05/24 23:34 25 MG Apixaban 2.5 mg BID PO 10/05/24 22:00 10/05/24 23:32 2.5 MG Laboratory Results Laboratory Tests 10/06/24 05:52 Chemistry Test 10/06/24 05:52 Albumin 3.2 g/dL (3.2-4.8) Calcium Level 8.5 mg/dL (8.7-10.4) L Total Protein 6.3 g/dL (5.7-8.2) LFT Test 10/06/24 05:52 Alanine Aminotransferase (ALT) 40 U/L (7-40) Alkaline Phosphatase 64 U/L (46-116) Aspartate Amino Transferase (AST) 35 U/L (13-40) Total Bilirubin 0.2 mg/dL (0.2-1.0) Urinalysis Test 10/01/24 20:55 10/02/24 17:35 Urine Color Light-yellow (Yellow) Urine Clarity Turbid (Clear) H Urine pH 5.5 (5.0-9.0) Urine Specific [place] 1.021 (1.001-1.035) Urine Protein 1+ (Negative) H Urine Ketones Negative (Negative) Urine Blood 1+ /uL (Negative) H Urine Nitrite Negative (Negative) Urine Bilirubin Negative (Negative) Urine Urobilinogen Normal mg/dL (Negative) Urine Leukocyte Esterase 2+ /uL (Negative) Urine RBC 81 /hpf (0 - 3) Urine Microscopic WBC 108 /HPF (0-3) H Urine Squamous Epithelial Cells Few /hpf (<5) Urine Amorphous Crystals Few /hpf (None Seen) Urine Bacteria None seen /hpf (None Seen) Urine Sodium 31 mmol/L (40-220) L Urine Glucose Normal mg/dL (Normal) Urine Osmolality 507 mOsm/kg Urine Creatinine 85.40 mg/dL (30.0-125.0) Urine Protein/Creatinine Ratio 2.39 Urine Total Protein 204.5 mg/dL (1-14) H Microbiology Microbiology Date/Time Source Procedure Growth Status 10/02/24 17:35 Nose MRSA Screen - Final Methicillin Resistant S.aureus Complete 10/02/24 17:35 Urine - Midstream Clean Catch Urine Culture - Final Complete 10/01/24 14:11 Blood Blood Culture - Final Klebsiella pneumoniae - ESBL Complete Labs and/or images reviewed: Labs reviewed by me, Image(s) reviewed by me Assessment/Plan Assessment/Plan Sepsis secondary to community-acquired pneumonia: Blood cultures growing ESBL Klebsiella pneumoniae: Started on Invanz Bacteremia with ESBL Klebsiella on Invanz Acute metabolic encephalopathy Acute on chronic hypoxic respiratory failure: Oxygen by nasal cannula Briana test negative Flu test negative Use of home oxygen Acute urinary tract infection: Urine cultures negative, continue Rocephin History of GI bleed History of blood loss anemia History of traumatic brain injury status post craniotomy Hypercholesterolemia: Lipitor Paroxysmal AFib, consult by Dr. Jhonny girard, started on Lovenox therapeutic dose and metoprolol Acute on chronic COPD exacerbation Coronary artery disease Hypertension Seizures: Keppra MRSA in the nose: Bactroban nasal ointment Dementia Acute lactic acidosis Acute kidney injury with BUN creatinine 44/2.55: Nephrology consult appreciated Patient is hospice revoked : Social service consult Patient was transferred from [facility] Time spent 50 minutes Pt lives in a assisted living facility; no family members, caregiver Mallika [phone] at bedside Prognosis is grave Midline ordered Discussed with the caregiver about IV antibiotics for three weeks bacteremia and retirement placement she agrees Caregiver agreeable for the patient to go to [facility] Plan discussed with: Patient My Orders Orders - JEANIE VERMA MD Procedure Category Date Status Time Blood Culture DEMETRIUS 10/05/24 In Process 11:05 Insert Midline ORDERS 10/05/24 Transmitted 11:15 Pt Request For Service PT 10/05/24 Logged 11:16 Discharge DISCHARGE 10/05/24 Transmitted 11:19 Apixaban (Eliquis) PHA 10/05/24 In Process 22:00 * Home Economics Extension Worker CONS 10/05/24 Transmitted Consult * Home Economics Extension Worker CONS 10/06/24 Verified Consult Date of Service: Oct 06, 2024 Billing Provider: JEANIE VERMA MD Common Visit Codes: [id number] INP/OBS CARE(HIGH) JEANIE VERMA MD Oct 06, 2024 09:33
--- NOTE | 2024-10-06 11:32 | DVHPN2 ---
Subjective No significant cardiac event, denies chest pain or shortness of breath Reviewed: Care Plan, H&P, Labs, Medications, Previous Orders, Radiology Review of systems No changes Changes from previous H/P or p: No Changes Objective Vitals Vital Signs Date Time Temp Pulse Resp B/P (MAP) Pulse Ox O2 Delivery O2 Flow Rate FiO2 10/06/24 11:19 67 117/72 10/06/24 11:10 18 100 10/06/24 11:04 Nasal Cannula* 2 28 10/06/24 09:00 98.9 98.9 Intake/Output Intake and Output 10/06/24 07:00 Intake Total 1200 ml Output Total 1700 ml Balance -500 ml Intake Oral 1200 ml Output Urine Total 1700 ml # Bowel Movements 1 General Appearance: Alert, Oriented X3, No acute distress Cardiovascular: Regular rate, Normal S1, Normal S2 Medications Current Medications Medications Dose Ordered Sig/Camelia Route Start Time Stop Time Status Last Admin Dose Admin Sodium Chloride 10 ml Q8HR IV 10/01/24 22:00 10/06/24 06:26 10 ML Docusate Sodium 100 mg BIDPRN PRN PO 10/01/24 16:45 10/03/24 09:00 100 MG Acetaminophen 650 mg Q6HP PRN PO 10/01/24 16:45 Acetaminophen/ Hydrocodone Bitart 1 tab Q4HP PRN PO 10/01/24 16:45 10/03/24 08:59 1 TAB Ondansetron HCl 4 mg Q4HP PRN IV 10/01/24 16:45 Albuterol 2.5 mg Q6H NEB 10/01/24 18:00 10/06/24 11:04 2.5 MG Ipratropium [place] 0.5 mg Q6H NEB 10/01/24 18:00 10/06/24 11:04 0.5 MG Levetiracetam 750 mg/Sodium Chloride 107.5 ml @ 107.5 mls/ hr BID IV 10/02/24 10:00 10/06/24 00:22 107.5 MLS/HR Acetaminophen 650 mg Q6HP PRN [place] 10/02/24 08:00 Sodium Chloride 1,000 ml @ 75 mls/hr [id number] IV 10/02/24 12:30 10/04/24 22:15 75 MLS/HR Atorvastatin Calcium 20 mg HS PO 10/03/24 22:00 10/05/24 23:34 20 MG Mupirocin 1 applic BID EACHNOSTRI 10/03/24 22:00 10/08/24 21:59 10/06/24 11:18 1 APPLIC Ertapenem 1 gm/ Sodium Chloride 50 ml @ 100 mls/hr DAILY IV 10/05/24 10:00 10/05/24 10:00 100 MLS/HR Metoprolol Tartrate 25 mg BID PO 10/04/24 22:00 10/06/24 11:19 25 MG Apixaban 2.5 mg BID PO 10/05/24 22:00 10/06/24 11:19 2.5 MG Laboratory Results Laboratory Tests 10/06/24 05:52 Chemistry Test 10/06/24 05:52 Albumin 3.2 g/dL (3.2-4.8) Calcium Level 8.5 mg/dL (8.7-10.4) L Total Protein 6.3 g/dL (5.7-8.2) LFT Test 10/06/24 05:52 Alanine Aminotransferase (ALT) 40 U/L (7-40) Alkaline Phosphatase 64 U/L (46-116) Aspartate Amino Transferase (AST) 35 U/L (13-40) Total Bilirubin 0.2 mg/dL (0.2-1.0) Urinalysis Test 10/01/24 20:55 10/02/24 17:35 Urine Color Light-yellow (Yellow) Urine Clarity Turbid (Clear) H Urine pH 5.5 (5.0-9.0) Urine Specific [place] 1.021 (1.001-1.035) Urine Protein 1+ (Negative) H Urine Ketones Negative (Negative) Urine Blood 1+ /uL (Negative) H Urine Nitrite Negative (Negative) Urine Bilirubin Negative (Negative) Urine Urobilinogen Normal mg/dL (Negative) Urine Leukocyte Esterase 2+ /uL (Negative) Urine RBC 81 /hpf (0 - 3) Urine Microscopic WBC 108 /HPF (0-3) H Urine Squamous Epithelial Cells Few /hpf (<5) Urine Amorphous Crystals Few /hpf (None Seen) Urine Bacteria None seen /hpf (None Seen) Urine Sodium 31 mmol/L (40-220) L Urine Glucose Normal mg/dL (Normal) Urine Osmolality 507 mOsm/kg Urine Creatinine 85.40 mg/dL (30.0-125.0) Urine Protein/Creatinine Ratio 2.39 Urine Total Protein 204.5 mg/dL (1-14) H Microbiology Microbiology Date/Time Source Procedure Growth Status 10/02/24 17:35 Nose MRSA Screen - Final Methicillin Resistant S.aureus Complete 10/02/24 17:35 Urine - Midstream Clean Catch Urine Culture - Final Complete 10/01/24 14:11 Blood Blood Culture - Final Klebsiella pneumoniae - ESBL Complete Assessment/Plan Assessment/Plan Problem List/Assessment/Plan Paroxysmal atrial fibrillation, stage 3A Rule out structural heart disease Hypertension Dyslipidemia Questionable history of coronary artery disease (on clopidogrel) Sepsis with pneumonia COPD with home oxygen dependence Seizure disorder Acute kidney injury History of traumatic brain injury status post craniotomy Dementia Plan/Recommendation (): Awaiting for echocardiogram results. Continue with current medical plan * Transthoracic echocardiogram to evaluate cardiac function * ?[id number] VASc score: 3 points, HAS-BLED score: 2 points * Therapeutic Lovenox (renal dose), transition to NOAC when appropriate. Closely monitor H&H, plt count * Beta-gerri for rate control; up-titrate as tolerated * Monitor and replete electrolytes as needed, keep potassium greater than four and magnesium greater than two * Continue lipid-lowering agent * Close Cardiac surveillance Thank you for allowing us to care for this patient. Please call with any questions or concerns. This medical document was created using an electronic medical record system with voice recognition software and computerized dictation system. Although this document has been carefully reviewed, there might still be some phonetic and typographical errors. Occasional wrong-word or ``sound-alike substitutions may have occurred due to the inherent limitations of voice recognition software. These areas are purely typographical due to imperfections of the software programs and do not reflect any compromise in the patient's medical care. Please read the chart carefully and recognize, using context, where these substitutions have occurred. Plan discussed with: Patient Plan discussed with: Patient, Other (RN) My Orders Orders - TEZ WHYTE Procedure Category Date Status Time Electrocardigram EKG 10/06/24 Logged 10:09 Date of Service: Oct 06, 2024 Billing Provider: SIGIFREDO ISBELL MD Common Visit Codes: CONSULT ONLY TEZ WHYTE Oct 06, 2024 11:32
--- NOTE | 2024-10-06 18:34 | DVHPN2 ---
Consult Progress Note Subjective Other Systems: Patient was seen and evaluated in follow up. No significant cardiac event, denies chest pain or shortness of breath. HGB 7.1, HCT 22.3, BUN 34, MOTORBOAT MECHANIC 1.67, CA 8.5. Telemetry reviewed. Objective vital signs Vital Sign Date Time Temp Pulse Resp B/P (MAP) Pulse Ox O2 Delivery O2 Flow Rate FiO2 10/06/24 12:37 97.6 62 17 118/78 (91) 100 97.6 10/06/24 11:04 Nasal Cannula* 2 28 Total Intake and Output 10/05/24 10/05/24 10/06/24 14:59 22:59 06:59 Intake Total 650 ml 550 ml Output Total 1100 ml 600 ml Balance -450 ml -50 ml medications Current Medications Medications Dose Ordered Sig/Camelia Route Start Time Stop Time Status Last Admin Dose Admin Sodium Chloride 10 ml Q8HR IV 10/01/24 22:00 10/06/24 06:26 10 ML Docusate Sodium 100 mg BIDPRN PRN PO 10/01/24 16:45 10/03/24 09:00 100 MG Acetaminophen 650 mg Q6HP PRN PO 10/01/24 16:45 Acetaminophen/ Hydrocodone Bitart 1 tab Q4HP PRN PO 10/01/24 16:45 10/03/24 08:59 1 TAB Ondansetron HCl 4 mg Q4HP PRN IV 10/01/24 16:45 Albuterol 2.5 mg Q6H NEB 10/01/24 18:00 10/06/24 11:04 2.5 MG Ipratropium [place] 0.5 mg Q6H NEB 10/01/24 18:00 10/06/24 11:04 0.5 MG Levetiracetam 750 mg/Sodium Chloride 107.5 ml @ 107.5 mls/ hr BID IV 10/02/24 10:00 10/06/24 11:41 107.5 MLS/HR Acetaminophen 650 mg Q6HP PRN [place] 10/02/24 08:00 Sodium Chloride 1,000 ml @ 75 mls/hr [id number] IV 10/02/24 12:30 10/04/24 22:15 75 MLS/HR Atorvastatin Calcium 20 mg HS PO 10/03/24 22:00 10/05/24 23:34 20 MG Mupirocin 1 applic BID EACHNOSTRI 10/03/24 22:00 10/08/24 21:59 10/06/24 11:18 1 APPLIC Ertapenem 1 gm/ Sodium Chloride 50 ml @ 100 mls/hr DAILY IV 10/05/24 10:00 10/06/24 12:48 100 MLS/HR Metoprolol Tartrate 25 mg BID PO 10/04/24 22:00 10/06/24 11:19 25 MG Apixaban 2.5 mg BID PO 10/05/24 22:00 10/06/24 11:19 2.5 MG Examination: GENERAL:Normal, HEENT:Normal, LUNGS:Normal, CVS:Normal, ABDOMEN:Normal, SKIN:Normal, NEURO:Normal laboratory and microbiology Laboratory Tests 10/06/24 05:52 Test 10/06/24 05:52 Range/Units Serum Glucose 127 H 74-106 mg/dL Problem List/Assessment/Plan Problem List/Assessment/Plan Problem List/Assessment/Plan Paroxysmal atrial fibrillation, stage 3A. Rule out structural heart disease. Hypertension. Dyslipidemia. Questionable history of coronary artery disease (on clopidogrel). Sepsis with pneumonia. COPD with home oxygen dependence. Seizure disorder. Acute kidney injury. History of traumatic brain injury status post craniotomy. Dementia. Plan/Recommendation Continued all current supportive medical care. Patient has been seen by Debra Ch NP on my behalf, her and I discussed the plan with the patient. Transthoracic echocardiogram to evaluate cardiac function. ?[id number] VASc score: 3 points, HAS-BLED score: 2 points. Therapeutic Lovenox (renal dose), transition to NOAC when appropriate. Closely monitor H&H, plt count. Beta-gerri for rate control; up-titrate as tolerated . Monitor and replete electrolytes as needed, keep potassium greater than four and magnesium greater than two. Continue lipid-lowering agent. Close Cardiac surveillance. Additional plan as per the hospital course. Plan discussed with: Patient Dietary Evaluation Review Comments: 1. Continue Mechnical Soft diet per CONTENT WRITER discretion 2. Will add Ensure Enlive TID to enhance PO (provides 350 kcal, 20 gm pro per carton) 3. High risk for malnutrition, continue to document PO intakes 4. If PO does not improve, would implement noctunral TF via NGT w/ Jevity 1.2 @ 140 ml/hr x 12 hrs (1999 hrs - 0800 hrs) until pt able to maintain oral intakes >60% Expected Outcomes/Goals: Improved oral intake vs. supplemental nutrition support, weight maintenance. Date of Service: Oct 06, 2024 Billing Provider: SIGIFREDO ISBELL MD Cardiology Common Codes: [id number] CARE 30-74 MIN SIGIFREDO ISBELL MD Oct 06, 2024 13:39
--- NOTE | 2024-10-06 22:24 | DVHSR ---
APPROVED REPORT EXAM: Two-dimensional and M-mode echocardiogram with Doppler and color Doppler. Blood Pressure: 141/67 mmHg INDICATION evaluate cardiac function RISK FACTORS Height: 73, Weight: 222 DIMENSIONS LVDd6.1 (3.8-5.7cm)LA (2D)4.6 (1.9-4.0cm)Aortic Root4.5 (2.0-3.7cm) LVDs3.9 (2.5-4.0cm)LA (MM) (1.9-4.0cm)Aortic Cusp Exc2.6 (1.5-2.0cm) EF (%) 65.0 (55-70%)Rt. Atrium4.0 (1.9-4.0cm)Asc. Aorta4.3 cm IVSd1.6 (0.7-1.1cm)RV (D) (1.8-2.4cm) PWd1.3 (0.7-1.1cm) Mitral Valve MitralMitral Stenosis A wavem/sMV Peak GR.49mmHg E/A ratio0.02D MVAcm2 Aortic Valve Aortic ValveAortic Stenosis V11.03m/Ethel Mean GR.5mmHg V21.50m/Ethel Peak GR.9mmHg LVOT Diameter2.8 (1.8-2.4cm)Doppler AVA4.23cm2 AI P 1/2 Sfsp811.87ms Other Information Technically limited study due to body habitus, patient position and patient abnormal rhythm. Conclusion MODERATELY DILATED RV AND RA HYPOKINESIS OF RV LIKELY RV FAILURE DYSKINESIS OF IVS LV EF IS 60% AND IS NORMAL MODERATELY DILATED LA AORTIC SCLEROSIS BUT NO STENOSIS MODERATE DEGREE AORTIC REGURGITATION NORMAL MV,TV AND PV NO EFFUSION
--- NOTE | 2024-10-08 07:51 | ECG ---
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
== END 2024-10-06 21:00 | DRG 871 ==
LOC: ER 13:27 → OVERFLOW 16:31 → EAST 10-02 15:53 → TELE-EAST 10-03 07:29
PROVIDERS: ADMIT Family Medicine; ATTEND Family Medicine
PROC: 05HC33Z Insertion of Infusion Device into Left Basilic Vein, Percutaneous Approach (ICD-10-PCS; principal; 2024-10-05)
PROC: B54NZZA Ultrasonography of Left Upper Extremity Veins, Guidance (ICD-10-PCS; 2024-10-05)
DX: A41.89 Other specified sepsis (principal); G93.41 Metabolic encephalopathy; J96.21 Acute and chronic respiratory failure with hypoxia; J15.0 Pneumonia due to Klebsiella pneumoniae; N17.9 Acute kidney failure, unspecified; E87.21 Acute metabolic acidosis; J44.1 Chronic obstructive pulmonary disease with (acute) exacerbation; N39.0 Urinary tract infection, site not specified; E87.1 Hypo-osmolality and hyponatremia; J44.0 Chronic obstructive pulmonary disease with (acute) lower respiratory infection; Z16.12 Extended spectrum beta lactamase (ESBL) resistance; N18.9 Chronic kidney disease, unspecified; F02.80 Dementia in other diseases classified elsewhere, unspecified severity, without behavioral disturbance, psychotic disturbance, mood disturbance, and anxiety; Z20.822 Contact with and (suspected) exposure to COVID-19; G40.909 Epilepsy, unspecified, not intractable, without status epilepticus; I48.0 Paroxysmal atrial fibrillation; I25.10 Atherosclerotic heart disease of native coronary artery without angina pectoris; I49.3 Ventricular premature depolarization; G30.9 Alzheimer's disease, unspecified; E78.00 Pure hypercholesterolemia, unspecified; I12.9 Hypertensive chronic kidney disease with stage 1 through stage 4 chronic kidney disease, or unspecified chronic kidney disease; Z79.899 Other long term (current) drug therapy; Z87.820 Personal history of traumatic brain injury; Z99.81 Dependence on supplemental oxygen
CPT/HCPCS: 36415; 36600; 70450; 71045; 71250; 76775; 80053; 80202; 81001; 82570; 82805; 82962; 83036; 83605; 83735; 83880; 83935; 83970; 84100; 84156; 84300; 84484; 85007; 85025; 85027; 86141; 87040; 87077; 87081; 87086; 87186; 87426; 87804; 92610; 93005; 93306; 94640; 96365; 97110; 97162; 97530; G0378; J0692; J1335; J2543